=== PATIENT | female | born 1940 | race Caucasian/White ===

== ENCOUNTER → 2016-06-28 | Outpatient (CLI) | payer MEDICARE, OTHER ==
--- NOTE | 2016-06-28 12:36 | FL ---
MODIFIED SWALLOW / DEGLUTITION STUDY DATE OF EXAM: 06/28/2016 12:28 PM CLINICAL HISTORY: 75-year-old female with trouble swallowing certain solid consistencies. TECHNIQUE: Deglutition study is performed utilizing thin liquid barium, , a soft preparation with cr vanessa soaked in applesauce and barium, and barium thick applesauce Total fluoroscopy time: 1 minute 25 seconds. COMPARISON: None. FINDINGS: The oral and pharyngeal phases show delay in swallow. Patient also swallowed the soft consistency wit hout chewing. No penetration or aspiration was identified. There is some vallecular residual with the soft consistency which cleared after drinking thin consistency. Patient noted to be edentulous. IMPRESSION: Some delay in swallow. No penetration or aspiration with the tested consistencies. Please refer to sp eech therapist notes for further details if necessary.
== END | disposition home or self-care (01) ==
LOC: RADFLMAIN 11:31
PROVIDERS: ATTEND Family Medicine
DX: R13.10 Dysphagia, unspecified (principal)
CPT/HCPCS: 74230

== ENCOUNTER 2016-10-21 15:51 | Inpatient (IN) | payer MEDICARE, OTHER ==
[2016-10-21] MEDS ORDERED: IPRATROPIUM-ALBUTEROL 3 ML NEB INHALATION STA (16:17)
--- NOTE | 2016-10-21 17:05 | ED ---
General Adult HPI - General Source: patient, EMS, RN notes reviewed Mode of arrival: EMS Limitations: no limitations <Harley Kuhn - Last Filed: 10/21/16 17:03> <Jose Antonio Morales - Last Filed: 10/21/16 18:18> - General Chief complaint: Shortness of Breath Stated complaint: Fall - History of Present Illness Initial comments: 75-year-old female presents emergency Department via EMS for a fall, shortness of breath. Patient initial illness: Was for lift assist. Patient fell out of her scooter. This was essentially nontraumatic fall. Patient had no injuries from it. Patient was found to be short of breath and family is requesting medical attention. Patient does not want to be in [facility] she states. Patient does admit to being short breath and having some chest discomfort. Patient states she does have a history of asthma. Denies any nausea vomiting diarrhea constipation. Denies any head injury no headache no dizziness no blurred vision. She denies any focal weakness. (Harley Kuhn) - Related Data Home Medications Medication Instructions Recorded Confirmed Fenofibrate Nanocrystallized 145 mg PO DAILY 11/03/15 10/21/16 [Fenofibrate] Gabapentin [Neurontin] 300 mg PO BID 11/03/15 10/21/16 Loratadine [Claritin] 10 mg PO DAILY 11/03/15 10/21/16 Metoprolol Tartrate [Lopressor] 25 mg PO DAILY 11/03/15 10/21/16 Omeprazole 20 mg PO QAM 11/03/15 10/21/16 Oxybutynin Chloride [Oxybutynin 15 mg PO BID 11/03/15 10/21/16 Chloride ER] Simvastatin [Zocor] 10 mg PO DAILY 11/03/15 10/21/16 Venlafaxine HCl [Effexor] 37.5 mg PO HS 11/03/15 10/21/16 Venlafaxine HCl [Effexor] 75 mg PO QAM 11/03/15 10/21/16 amLODIPine [Norvasc] 5 mg PO DAILY 11/03/15 10/21/16 buPROPion SR [Wellbutrin SR] 150 mg PO DAILY 11/03/15 10/21/16 metFORMIN HCL [Glucophage] 850 mg PO QAM 11/03/15 10/21/16 Insulin Aspart [NovoLOG Flexpen] 7 units SQ TID-W/MEALS 10/21/16 10/21/16 Insulin Aspart [NovoLOG Flexpen] See Protocol SQ TID 10/21/16 10/21/16 Insulin Glargine,Hum.rec.anlog 30 unit SQ QAM 10/21/16 10/21/16 [Lantus Solostar] Isosorbide Mononitrate ER [Imdur] 30 mg PO DAILY 10/21/16 10/21/16 Allergies Allergy/AdvReac Type Severity Reaction Status Date / Time morphine AdvReac Unknown Verified 12/18/15 11:57 NSAIDS (Non-Steroidal AdvReac Unknown Verified 12/18/15 11:57 Anti-Inflamma Penicillins AdvReac Abdominal Verified 12/18/15 11:57 Pain Quinazolinones AdvReac Unknown Verified 12/18/15 11:57 Quinolones AdvReac Unknown Verified 12/18/15 11:57 salicylates [salicylate] AdvReac Unknown Verified 12/18/15 11:57 Review of Systems ROS Other: All systems not noted in ROS Statement are negative. <Harley Kuhn - Last Filed: 10/21/16 17:03> ROS Other: All systems not noted in ROS Statement are negative. <Jose Antonio Morales - Last Filed: 10/21/16 18:18> ROS Statement: Those systems with pertinent positive or pertinent negative responses have been documented in the HPI. Past Medical History Past Medical History: Coronary Artery Disease (CAD), Dementia, Diabetes Mellitus , GERD/Reflux, Hyperlipidemia, Hypertension History of Any Multi-Drug Resistant Organisms: None Reported, Unobtainable Past Surgical History: Unable to Obtain Past Psychological History: No Psychological Hx Reported, Unable to Obtain Smoking Status: Never smoker Past Alcohol Use History: None Reported Past Drug Use History: None Reported - Past Family History Sister(s) Family Medical History: Cancer, Diabetes Mellitus Father Family Medical History: No Reported History, Unable to Obtain Additional Family Medical History / Comment(s): pt unsure Mother Family Medical History: No Reported History, Unable to Obtain Additional Family Medical History / Comment(s): pt unsure <Harley Kuhn - Last Filed: 10/21/16 17:03> General Exam Limitations: no limitations General appearance: alert, in no apparent distress, obese Head exam: Present: atraumatic, normocephalic, normal inspection Eye exam: Present: normal appearance, PERRL, EOMI. Absent: scleral icterus, conjunctival injection, periorbital swelling ENT exam: Present: normal exam, normal oropharynx, mucous membranes moist, TM's normal bilaterally Neck exam: Present: normal inspection, full ROM. Absent: tenderness, meningismus, lymphadenopathy Respiratory exam: Present: wheezes, decreased breath sounds. Absent: normal lung sounds bilaterally, respiratory distress, rales, rhonchi, stridor Cardiovascular Exam: Present: regular rate, normal rhythm, normal heart sounds. Absent: systolic murmur, diastolic murmur, rubs, gallop, clicks GI/Abdominal exam: Present: soft, normal bowel sounds. Absent: distended, tenderness, guarding, rebound, rigid Neurological exam: Present: alert, oriented X3, CN II-XII intact, reflexes normal. Absent: motor sensory deficit Skin exam: Present: warm, dry, intact, normal color. Absent: rash <Harley Kuhn - Last Filed: 10/21/16 17:03> Medical Decision Making <Harley Kuhn - Last Filed: 10/21/16 17:03> - Lab Data Result diagrams: 10/21/16 16:40 10/21/16 16:40 <Jose Antonio Morales - Last Filed: 10/21/16 18:18> - Medical Decision Making chest x-ray shows pulmonary edema. EKG shows a normal sinus rhythm at 84 bpm SC interval is on a 56 dresses 84 QT interval 350 QTC is 413. Patient's EKG shows no ST segment elevation or depression or T wave abnormalities are noted. Patient has pulmonary edema. I started the patient on Lasix and Nitropaste. Spoke withDr. Robertson admitted the patient I consult to cardiology. I continued Nitropaste and Lasix on the floor. Patient also had elevated potassiums I gave the patient 1 dose of Kayexalate hoping that the Lasix and also reduce the potassium and he can be rechecked tomorrow. (Jose Antonio Morales) - Lab Data Lab Results 10/21/16 10/21/16 10/21/16 Range/Units 16:40 16:40 16:40 WBC 11.6 H (3.8-10.6) k/uL RBC 5.08 (3.80-5.40) m/uL Hgb 10.7 L (11.4-16.0) gm/dL Hct 36.9 (34.0-46.0) % MCV 72.7 L (80.0-100.0) fL MCH 21.0 L (25.0-35.0) pg MCHC 29.0 L (31.0-37.0) g/dL RDW 18.3 H (11.5-15.5) % Plt Count 417 (150-450) k/uL Neutrophils % (Manual) 78.5 % Band Neutrophils % 3.0 % Lymphocytes % (Manual) 10.5 % Monocytes % (Manual) 5.5 % Eosinophils % (Manual) 2.5 % Neutrophils # (Manual) 9.5 H (1.3-7.7) k/uL Lymphocytes # (Manual) 1.2 (1.0-4.8) k/uL Monocytes # (Manual) 0.6 (0-1.0) k/uL Eosinophils # (Manual) 0.3 (0-0.7) k/uL Nucleated RBCs 2 H (0-0) /100 WBC Manual Slide Review Performed Polychromasia Present Hypochromasia Marked Poikilocytosis Slight Anisocytosis Slight Microcytosis Moderate Stomatocytes Present PT (9.0-12.0) sec INR (<1.1) APTT (22.0-30.0) sec D-Dimer (<0.60) mg/L FEU Sodium 138 (137-145) mmol/L Potassium 5.9 H (3.5-5.1) mmol/L Chloride 98 (98-107) mmol/L Carbon Dioxide 33 H (22-30) mmol/L Anion Gap 7 mmol/L BUN 40 H (7-17) mg/dL Creatinine 1.19 H (0.52-1.04) mg/dL Est GFR (MDRD) Af Amer 54 (>60 ml/min/1.73 sqM) Est GFR (MDRD) Non-Af 44 (>60 ml/min/1.73 sqM) Glucose 188 H (74-99) mg/dL Calcium 8.6 (8.4-10.2) mg/dL Magnesium 1.7 (1.6-2.3) mg/dL Total Bilirubin 0.4 (0.2-1.3) mg/dL AST 25 (14-36) U/L ALT 27 (9-52) U/L Alkaline Phosphatase 85 (38-126) U/L Total Creatine Kinase 35 (30-135) U/L CK-MB (CK-2) 0.9 (0.0-2.4) ng/mL CK-MB (CK-2) Rel Index 2.6 Troponin I 0.014 (0.000-0.034) ng/mL NT-Pro-B Natriuret Pep pg/mL Total Protein 6.4 (6.3-8.2) g/dL Albumin 3.4 L (3.5-5.0) g/dL 10/21/16 10/21/16 Range/Units 16:40 16:40 WBC (3.8-10.6) k/uL RBC (3.80-5.40) m/uL Hgb (11.4-16.0) gm/dL Hct (34.0-46.0) % MCV (80.0-100.0) fL MCH (25.0-35.0) pg MCHC (31.0-37.0) g/dL RDW (11.5-15.5) % Plt Count (150-450) k/uL Neutrophils % (Manual) % Band Neutrophils % % Lymphocytes % (Manual) % Monocytes % (Manual) % Eosinophils % (Manual) % Neutrophils # (Manual) (1.3-7.7) k/uL Lymphocytes # (Manual) (1.0-4.8) k/uL Monocytes # (Manual) (0-1.0) k/uL Eosinophils # (Manual) (0-0.7) k/uL Nucleated RBCs (0-0) /100 WBC Manual Slide Review Polychromasia Hypochromasia Poikilocytosis Anisocytosis Microcytosis Stomatocytes PT 11.0 (9.0-12.0) sec INR 1.1 (<1.1) APTT 22.6 (22.0-30.0) sec D-Dimer 0.39 (<0.60) mg/L FEU Sodium (137-145) mmol/L Potassium (3.5-5.1) mmol/L Chloride (98-107) mmol/L Carbon Dioxide (22-30) mmol/L Anion Gap mmol/L BUN (7-17) mg/dL Creatinine (0.52-1.04) mg/dL Est GFR (MDRD) Af Amer (>60 ml/min/1.73 sqM) Est GFR (MDRD) Non-Af (>60 ml/min/1.73 sqM) Glucose (74-99) mg/dL Calcium (8.4-10.2) mg/dL Magnesium (1.6-2.3) mg/dL Total Bilirubin (0.2-1.3) mg/dL AST (14-36) U/L ALT (9-52) U/L Alkaline Phosphatase (38-126) U/L Total Creatine Kinase (30-135) U/L CK-MB (CK-2) (0.0-2.4) ng/mL CK-MB (CK-2) Rel Index Troponin I (0.000-0.034) ng/mL NT-Pro-B Natriuret Pep 3200 pg/mL Total Protein (6.3-8.2) g/dL Albumin (3.5-5.0) g/dL Disposition <Harley Kuhn - Last Filed: 10/21/16 17:03> <Jose Antonio Morales - Last Filed: 10/21/16 18:18> Clinical Impression: Acute pulmonary edema Referrals: None,Stated [Primary Care Provider] - 1-2 days
[2016-10-21 17:13] LABS: Anisocytosis Slight; CH 20.9; CHCM 28.9; Calcium 8.6 mg/dL (8.4-10.2); HCT 36.9 % (34.0-46.0); HDW 3.55; HGB 10.7 gm/dL (11.4-16.0); Hypochromasia Marked; MCV 72.7 fL (80.0-100.0); Magnesium 1.7 mg/dL (1.6-2.3); Mean Platelet Volume 7.1; Microcytosis Moderate; Poikilocytosis Slight; Potassium 5.9 mmol/L (3.5-5.1); RBC 5.08 m/uL (3.80-5.40); RDW 18.3 % (11.5-15.5); Total Bilirubin 0.4 mg/dL (0.2-1.3); Total Protein 6.4 g/dL (6.3-8.2)
[2016-10-21 17:18] LABS: INR 1.1 (<1.1); Partial Thromboplastin Time 22.6 sec (22.0-30.0)
[2016-10-21 17:23] LABS: Add Differential Manual Differential
[2016-10-21 17:26] LABS: Nucleated Red Blood Cells 2 /100 WBC (0-0); Total Cells Counted 200
[2016-10-21 17:27] LABS: Manual Review Performed; Polychromasia Present; WBC 11.6 k/uL (3.8-10.6)
[2016-10-21 17:28] LABS: Stomatocytes Present
--- NOTE | 2016-10-21 17:29 | XR ---
EXAMINATION TYPE: XR chest 2V DATE OF EXAM: 10/21/2016 COMPARISON: NONE INDICATION: Difficulty breathing TECHNIQUE: Frontal and lateral views of the chest are obtained. FINDINGS: The heart size is enlarged. The pulmonary vasculature is borderline prominent.. There is opacification to the left mid and lower lung field. Some minimal infiltrates in the right pe rihilar region. Correlate for volume overload and pneumonia.. IMPRESSION: 1. Correlate for pneumonia left lower lobe. 2. Volume overload could be considered
[2016-10-21 17:31] LABS: Creatine Kinase MB 0.9 ng/mL (0.0-2.4); Troponin I 0.014 ng/mL (0.000-0.034)
[2016-10-21] MEDS ORDERED: NITROGLYCERIN OINT 1 INCH/GM PACKET TOPICAL STA (18:09)
[2016-10-21] MEDS ORDERED: FUROSEMIDE 10 MG/ML 4 ML VIAL IV STA (18:09)
[2016-10-21] MEDS ORDERED: SODIUM POLYSTYRENE SULFONATE 15 GM/60 ML BOTTLE PO STA (18:11)
[2016-10-22] MEDS: FUROSEMIDE 10 MG/ML 4 ML VIAL IV SCH ×2 (00:49→08:44)
[2016-10-22 01:23] LABS: Appearance,Urine Cloudy (Clear); Bacteria,Urine Many /hpf; Bilirubin,Urine Negative (Negative); Glucose,Urine (UA) 1+ (Negative); Ketones,Urine Negative (Negative); Leukocyte Esterase,Urine Large (Negative); Mucus,Urine Rare /hpf; Nitrite,Urine Negative (Negative); Particle Count 72945; Protein,Urine Trace (Negative); RBC,Urine 6 /hpf (0-5); Specific Gravity,Urine 1.008 (1.001-1.035); UA Billing (MACRO vs. MICRO) MICRO; Urobilinogen,Urine <2.0 mg/dL (<2.0); WBC,Urine >182 /hpf (0-5)
[2016-10-22 06:24] LABS: Glucose,Whole Blood 124 mg/dL (75-99)
[2016-10-22] MEDS: INSULIN LISPRO (humaLOG) 300 UNIT/3 ML VIAL SQ SCH ×5 (06:24→21:33)
[2016-10-22 07:13] LABS: Anisocytosis Slight; CH 20.7; CHCM 28.1; HCT 38.3 % (34.0-46.0); HDW 3.37; HGB 10.7 gm/dL (11.4-16.0); Hypochromasia Marked; MCH 20.8 pg (25.0-35.0); Mean Platelet Volume 6.7; Microcytosis Moderate; RBC 5.17 m/uL (3.80-5.40); RDW 17.9 % (11.5-15.5); WBC (Perox) 11.64
[2016-10-22 07:23] LABS: Calcium 8.5 mg/dL (8.4-10.2); Potassium 4.7 mmol/L (3.5-5.1)
--- NOTE | 2016-10-22 10:17 | CONS ---
DATE OF CONSULTATION: CHIEF COMPLAINT: Shortness of breath, cough. This is a 75-year-old lady who had a fall at home and was short of breath. Patient is morbidly obese, has sleep apnea, dyslipidemia, hypertension, and insulin-requiring diabetes. She was found to have complex and multiple problems on admission including acute onset congestive heart failure, probably diastolic, renal insufficiency, primarily prerenal and anemia with a hemoglobin of 10.7. Past medical history is significant for hypertension, diabetes, dyslipidemia, morbid obesity. Medications at home include Glucophage, Wellbutrin, Norvasc, Effexor, Zocor, Lopressor, Claritin, Imdur, insulin, Neurontin, Fenofibrate. Multiple allergies including NSAIDS, PENICILLIN, QUINOLONES, SALICYLATES and MORPHINE. Family history is negative for premature coronary artery disease. SOCIAL HISTORY: Denies current smoking, EtOH abuse. REVIEW OF SYSTEMS: HEENT is unremarkable. CARDIAC: As described above. RESPIRATORY: Significant shortness of breath. GI: Negative. GENITOURINARY: Negative. ALLERGY/IMMUNOLOGY: Negative. SKIN: Negative. MUSCULOSKELETAL: Significant for fall. PSYCHOSOCIAL: Significant for history of dementia. ONCOLOGICAL: Negative. HEMATOLOGICAL: Significant for anemia. The rest of the system review is not relevant. On exam, heart rate is 79 beats per minute, blood pressure is 150/49, O2 sat is 100% on 4 L. There is no jugular venous distention. Chest exam reveals diminished air entry with occasional rhonchi. Heart exam reveals first and second heart sounds. Systolic murmur at the apex. Abdomen is soft. Exam of extremities did not reveal significant edema. Labs show a hemoglobin of 10.7, platelet count is 420, BUN is 42, creatinine is 1.4. BNP is elevated at 3200. ASSESSMENT: 1. Acute onset congestive heart failure, probably diastolic. 2. Hypertension. 3. Dyslipidemia. 4. History of coronary artery disease. PLAN: I will treat the patient with IV Lasix, beta blockers, and holding on EDY inhibitors because of the hyperkalemia and renal insufficiency. Continue the nitrates. Review the echo. Further recommendations based on her response.
[2016-10-22 10:20] LABS: Add Differential Manual Differential
[2016-10-22 10:22] LABS: Band Neutrophils % 2.5 %; Myelocytes % 0.5 %; Nucleated Red Blood Cells 3 /100 WBC (0-0); Total Cells Counted 200
[2016-10-22 10:23] LABS: WBC 11.1 k/uL (3.8-10.6)
[2016-10-22 10:24] LABS: Polychromasia Present
[2016-10-22 11:47] LABS: Glucose,Whole Blood 280 mg/dL (75-99)
[2016-10-22 12:36] LABS: Hemoglobin A1C 11.9 % (4.2-6.1)
[2016-10-22] MEDS: METOPROLOL TARTRATE 25 MG TAB PO SCH (12:57)
[2016-10-22] MEDS: amLODIPine 5 MG TAB PO SCH (12:57)
[2016-10-22] MEDS: ISOSORBIDE MONONITRATE ER 30 MG TAB.ER.24H PO SCH (12:58)
[2016-10-22 15:50] LABS: ABG PH 7.34 (7.35-7.45)
[2016-10-22 15:51] LABS: ABG Base Excess 10.4 mmol/L; ABG HCO3 36 mmol/L (21-25); ABG PCO2 70 mmHg (35-45); ABG PO2 74 mmHg (83-108); ABG TCO2 39 mmol/L (19-24)
[2016-10-22 17:32] LABS: Glucose,Whole Blood 91 mg/dL (75-99)
[2016-10-22] MEDS: predniSONE 20 MG TAB PO SCH (17:34)
[2016-10-22] MEDS: AZITHROMYCIN 500 MG TAB PO SCH (17:35)
[2016-10-22] MEDS: BUDESONIDE 0.5 MG/2 ML NEBU INHALATION SCH (18:59)
--- NOTE | 2016-10-22 19:09 | HP ---
Patient is a 75-year-old female who came into emergency department after a fall and patient was apparently short of breath. She states that shortness of breath has been going on for about 2 weeks, she says. Patient was in the hospital about a year ago. At that time, patient did not appear to have any major medical problems. Patient is morbidly, an extremely poor historian and I unable to get any history of congestive heart failure in the past. There is no echocardiogram available. I am not able to get a clear history of orthopnea, PND. Patient did have leukocytosis, but patient is afebrile and patient is complaining of cough with yellowish to greenish sputum production. Patient is morbidly obese, has a diagnosis of COPD in the past, has secondhand smoke exposure and chest x-ray was done which because of the obesity and soft tissue interference, it is not clear whether patient has CHF or not. I reviewed the images and there is a consideration of left lower lobe pneumonia as well. Patient was given IV Lasix, but her kidney function has worsened. Obtaining an echocardiogram at this time . The patient was complaining of some chest discomfort yesterday, but Cardiology evaluated the patient and troponins were not elevated. Patient's creatinine baseline is normal, but now has gone up to 1.41, because of which I am cutting down on the Lasix to 40 daily from 40 t.i.d., although I cannot completely rule out heart failure. Patient on exam is wheezing. I am unable to assess the JVD or S3 because of her body contour and morbid obesity and patient's wheezing can be from restrictive lung disease. Not sure whether patient has sleep apnea or not. I am unable to get such a history from the patient. Patient's ABG showed pH 7.34, PCO2 of 70, pO2 of 74 and bicarbonate of around 34. Patient's baseline pCO2 will be around 60 to 65 from Winter's formula. Patient denied any nausea, vomiting, diarrhea. Patient was started on empiric antibiotics and patient is ( ). The patient was on BiPAP yesterday, now 8L high-flow nasal cannula oxygen and Pulmonology will be consulted. Cardiology already evaluated the patient. REVIEW OF SYSTEMS: CONSTITUTIONAL: No fever, no malaise, no fatigue. HEENT: No recent visual problems or hearing problems. Denied any sore throat. CARDIOVASCULAR: As described in HPI. PULMONARY: As described in HPI. GASTROINTESTINAL: No diarrhea, no nausea, no vomiting, no abdominal pain. Normoactive bowel sounds. NEUROLOGICAL: No headaches, no weakness, no numbness. HEMATOLOGICAL: Denies any bleeding or petechiae. GENITOURINARY: Denies any burning micturition, frequency, or urgency. MUSCULOSKELETAL/RHEUMATOLOGICAL: Denies any joint pain, swelling, or any muscle pain. ENDOCRINE: Denies any polyuria or polydipsia. The rest of the 14 point review of systems is negative. Home medications include: 1. Fenofibrate. 2. Gabapentin. 3. Loratadine. 4. Metoprolol. 5. Omeprazole. 6. Oxybutynin. 7. Simvastatin. 8. ( ). 9. Amlodipine. 10. Bupropion. 11. Metformin. 12. Insulin Aspart 30 units in the morning and t.i.d. a.c. 7 units. 13. Isosorbide mononitrate. ALLERGIES: ALLSRGIC TO MORPHINE AND NSAIDS, PENICILLIN, QUINOLONES AND SALICYLATES. PAST MEDICAL HISTORY: Significant for coronary artery disease, diabetes mellitus, gastroesophageal reflux disease, hyperlipidemia, hypertension. Apparently patient gathers diagnosis of dementia, too. SOCIAL HISTORY: Denied any smoking. Secondhand smoke exposure as mentioned above. Denied any alcohol abuse or drug abuse. FAMILY HISTORY: Sister had cancer and diabetes mellitus. Father's history is unavailable at this point of time. Mother's history is unknown as well. PHYSICAL EXAMINATION: VITAL SIGNS: Temperature 96.4, pulse of 93, respiratory rate of 21, and blood pressure is 149/65, saturating at 87% on 8L of O2 by nasal cannula. GENERAL: The patient is not in any acute distress. Well developed, well nourished. HEENT: Pupils are round and equally reacting to light. EOMI. No scleral icterus. No conjunctival pallor. Normocephalic, atraumatic. No pharyngeal erythema. No thyromegaly. CARDIOVASCULAR: Unable to appreciate any JVD or S3. Patient has S1 and S2 present. I did not appreciate any clear-cut murmurs, rubs or gallops at this time. Patient does not have any significant pedal edema at this point of time. PULMONARY: Decreased air entry to bilateral lung infiltrates. Wheezing was appreciated. ABDOMEN: Soft, nontender, nondistended, normoactive bowel sounds. No palpable organomegaly. MUSCULOSKELETAL: No joint swelling or deformity. EXTREMITIES: No cyanosis, clubbing, or pedal edema. NEUROLOGICAL: Gross neurological examination did not reveal any focal deficits. SKIN: No rashes. LABORATORY DATA: CBC, CMP are abnormal for elevated WBC count of 11,100. ABGs as mentioned above. Bicarbonate of 34, BUN of 42, creatinine 1.42. Patient's ( ) 1.1 when she came in. Patient's UA showed greater than 182 WBCs, many WBC clumps, many bacteria. Patient denied any symptoms of UTI. Chest x-ray as mentioned above. ASSESSMENT AND PLAN: 1. Acute hypoxic as well as hypercapnic respiratory failure. Patient may have probably multifactorial etiologies, although unclear. There is a contribution of morbid obesity, restrictive lung disease with a possibility of pneumonia, community-acquired, which cannot be ruled out, for which patient will be started on Rocephin and azithromycin. Patient may have chronic obstructive pulmonary disease exacerbation as well, because of which starting on systemic steroids and inhalational treatments, although congestive heart failure and diastolic dysfunction cannot be ruled out at this time. I will continue with Lasix. Because of the worsening kidney function, I will cut down dose. 2. Acute renal failure, prerenal azotemia secondary to excessive diuretic therapy, which will cut down. 3. Diabetes mellitus. Blood sugars are expected to go up. Will increase the pre-meal Lantus dose to 45 units and pre-meal insulin, will continue with that and will continue the present home dosing along with sliding scale for systemic steroids. 4. Peripheral neuropathy. 5. Morbid obesity with possibility of sleep apnea. 6. Hyperlipidemia. 7. Hypertension. 8. Depression. 9. For above-mentioned chronic medical problems, will go ahead and continue her home medications. 10. Leukocytosis with possibility of pneumonia as mentioned above. Will obtain a sputum culture as well. 11. Major limiting factors are obesity and poor historian.
[2016-10-22 20:50] LABS: Glucose,Whole Blood 156 mg/dL (75-99)
[2016-10-22] MEDS ORDERED: GABAPENTIN 300 MG CAP PO SCH (21:00)
[2016-10-22] MEDS ORDERED: FUROSEMIDE 10 MG/ML 4 ML VIAL IV SCH (21:00)
[2016-10-22] MEDS ORDERED: INSULIN GLARGINE 100 UNIT/ML 10 ML VIAL SQ SCH ×2 (21:00)
[2016-10-22] MEDS: OXYBUTYNIN 15 MG TAB.ER.24 PO SCH (21:32)
[2016-10-22] MEDS: VENLAFAXINE HCL 37.5 MG TAB PO SCH (21:32)
[2016-10-23 06:08] LABS: Glucose,Whole Blood 243 mg/dL (75-99)
[2016-10-23 06:24] LABS: Calcium 8.6 mg/dL (8.4-10.2); Potassium 5.2 mmol/L (3.5-5.1)
[2016-10-23] MEDS: PANTOPRAZOLE 40 MG TABLET PO SCH (07:01)
[2016-10-23] MEDS: INSULIN LISPRO (humaLOG) 300 UNIT/3 ML VIAL SQ SCH ×7 (07:01→21:32)
[2016-10-23] MEDS: AZITHROMYCIN 500 MG TAB PO SCH (08:45)
[2016-10-23] MEDS: ISOSORBIDE MONONITRATE ER 30 MG TAB.ER.24H PO SCH (08:46)
[2016-10-23] MEDS: FENOFIBRATE 160 MG TAB PO SCH (08:46)
[2016-10-23] MEDS: ATORVASTATIN 10 MG TAB PO SCH (08:46)
[2016-10-23] MEDS: LORATADINE 10 MG TAB PO SCH (08:46)
[2016-10-23] MEDS: buPROPion SR 150 MG TABLET.ER PO SCH (08:46)
[2016-10-23] MEDS: amLODIPine 5 MG TAB PO SCH (08:46)
[2016-10-23] MEDS: METOPROLOL TARTRATE 25 MG TAB PO SCH (08:47)
[2016-10-23] MEDS: OXYBUTYNIN 15 MG TAB.ER.24 PO SCH ×2 (08:47→21:32)
[2016-10-23] MEDS: predniSONE 20 MG TAB PO SCH (08:47)
[2016-10-23] MEDS: VENLAFAXINE HCL 75 MG TAB PO SCH (08:47)
[2016-10-23] MEDS ORDERED: FUROSEMIDE 10 MG/ML 4 ML VIAL IV SCH (09:00)
[2016-10-23] MEDS: BUDESONIDE 0.5 MG/2 ML NEBU INHALATION SCH (09:48)
--- NOTE | 2016-10-23 11:31 | PN ---
Grecia is a morbidly obese lady with multiple medical problems including hypertension, diabetes, dyslipidemia, who presented to hospital with shortness of breath due to a combination of problems including COPD exacerbation and acute exacerbation of chronic diastolic heart failure. She is currently being treated with antibiotics with some improvement in her symptoms. She is also on Cytotec. An echocardiogram on her shows normal LV systolic function. Labs show that she developed prerenal azotemia with a BUN of 43 and creatinine of 1.3. Blood gases showed a pH of 7.3, pCO2 of 70, pO2 of 74, O2 sat is 93. On exam, comfortable at rest. Vital signs are stable. Chest exam reveals diminished air entry at the bases. Heart exam reveals first and second heart sounds. Systolic murmur at the left lower sternal border. Abdomen soft. Exam of the extremities reveals 1+ edema. Peripheral pulses are felt. The patient is currently on Norvasc 5 daily, Zithromax, Pulmicort, ( ), Lasix 40 mg IV, insulin, Imdur, Lopressor which she is going to continue. ASSESSMENT: 1. Acute onset diastolic heart failure. 2. Chronic obstructive pulmonary disease exacerbation. 3. Dyslipidemia. 4. Renal insufficiency. 5. Respiratory failure. PLAN: Patient will continue her current medications. We can cut back on the diuretics if we need to.
[2016-10-23 11:55] LABS: Glucose,Whole Blood 358 mg/dL (75-99)
[2016-10-23] MEDS ORDERED: INSULIN GLARGINE 100 UNIT/ML 10 ML VIAL SQ SCH (13:54)
--- NOTE | 2016-10-23 14:56 | CONS ---
DATE OF CONSULTATION: 75-year-old female who presented to the emergency department with a number of days of shortness of breath. The patient was apparently on her scooter and fell off. She did not injure herself. Denies any chest pain palpitation, cough, wheezing, fever, chills, nausea, vomiting, or diarrhea. She was seen in the emergency room and diagnosed with heart failure. Her chest x-ray consistent with that. In addition, yesterday the patient was bed bound and could barely move without being profoundly short of breath. Today she is sitting at the bedside and is able to walk on her own to the bathroom. When I walked into the room she was sitting at the bedside playing over the phone. Still has no complaints today. Current medications include: 1. Fenofibrate. 2. Gabapentin. 3. Loratadine. 4. Metoprolol. 5. Omeprazole. 6. Oxybutynin. 7. Simvastatin. 8. Effexor. 9. Norvasc. 10. Wellbutrin. 11. Glucophage. 12. NovoLog insulin. 13. Imdur. ALLERGIES INCLUDE MORPHINE, NSAIDS, PENICILLIN, FLUOROQUINOLONES, SALICYLATES. Medical history is positive for CAD, dementia, diabetes, GERD, hyperlipidemia, hypertension. Surgical history includes remote procedures in the past. Nothing recent. SOCIAL HISTORY: Negative for tobacco use. Denies any alcohol or illicit drug use. Family history is positive for cancer and diabetes. REVIEW OF SYSTEMS: CONSTITUTIONAL: Negative. NEUROLOGICAL: Negative. HEENT: Negative. CARDIOVASCULAR: Negative. PULMONARY: Shortness of breath, much improved. GI/: Negative. Rheumatological/immunologic: Negative. ENDOCRINOLOGIC: Negative. Current vital signs show temperature 96.7, heart rate 88, respiratory rate 20, blood pressure 110/62, mean 78. 6 liters saturation 93%. Appears in no acute distress. HEENT examination is grossly unremarkable. Mucous membranes are moist. No oral lesions. Neck is supple. Full range of motion. No adenopathy or thyromegaly. Neck veins are flat. Cardiovascular examination reveals regular rhythm and rate. Heart sounds are distant. S1, S2 normal. No distinct murmur noted. Lungs reveal mostly clear breath sounds. A few scattered rhonchi. Some mild crackles. No wheezes. ABDOMEN: Soft. Bowel sounds are heard. EXTREMITIES: Intact. Mild edema. Skin without rash. NEUROLOGICAL: Examination is nonfocal. Chest x-ray is consistent with fluid overload. He is a bit more dense in the left lower lobe. Labs are reviewed. White count 11.1, hemoglobin 10.7, hematocrit 38.3, platelet count normal. PT, INR, PTT normal. D-dimer normal. Blood gases show pO2 of 74, pCO2 of 70, pH 7.34. It appears that she is a chronic CO2 retainer may be from sleep apnea, and/or Pickwickian syndrome. Sodium 140, potassium 5.2, chloride 96, CO2 of 35, BUN and creatinine 43 and 1.30. N-terminal proBNP was elevated at 3200 and albumin 3.4, troponin 0.014. Urine is cloudy. There is trace protein 1+ glucose, small blood. Large leukocyte esterase, 6 RBCs more than 182 WBCs and many bacteria. The rest of her labs are reviewed. ASSESSMENT: 1. Acute pulmonary edema, improved. 2. Urinary tract infections and cystitis. 3. Obesity. 4. Hyperlipidemia. 5. Neuropathy. 6. Hypertension. 7. Hyperlipidemia. 8. Diabetes. 9. History of coronary artery disease. 10. History of dementia. 11. History of gastroesophageal reflux disease. PLAN: The patient is doing well. We will continue to follow. Medications are reviewed. It seems like in the last 24 hours she has turned around very, very nicely. The patient's medications are reviewed. Additional recommendations and suggestions are forthcoming. Prognosis is guarded. I do not believe she needs prednisone. That will be discontinued. She also does not need both antibiotics. We will continue her on the oral Zithromax and will DC the Rocephin for now. [facility] for [facility]. Prognosis is guarded.
[2016-10-23 17:16] LABS: Glucose,Whole Blood 215 mg/dL (75-99)
--- NOTE | 2016-10-23 20:00 | PN ---
Patient looks much better today. Patient's respiratory status is improving. REVIEW OF SYSTEMS: CARDIOVASCULAR: No chest pain, no orthopnea, no PND, no palpitations. PULMONARY: Denied any shortness of breath. No cough or hemoptysis. GASTROINTESTINAL: No diarrhea, nausea or vomiting. No abdominal pain. Normoactive bowel sounds. NEUROLOGIC: No headaches, no weakness, no numbness. Medications were reviewed. Medication changes: The patient Lasix will be switched to oral. Kidney function improved. LABORATORY DATA: Reviewed. PHYSICAL EXAMINATION: VITAL SIGNS: Temperature 96.7, pulse of 88, respiratory rate of 137/77. Saturating at 93% on 5 liters at this point of time. GENERAL: Morbidly obese, alert and oriented x3. HEENT: Pupils are round and equally reacting to light. EOMI. No scleral icterus. No conjunctival pallor. Normocephalic, atraumatic. No pharyngeal erythema. No thyromegaly. CARDIOVASCULAR: S1 and S2 present. Unable to appreciate any jugular venous distention or S3, no pedal edema. Lung examination: Decreased air entry into bilateral lung bradford. Wheezing significantly improved today. ABDOMEN: Soft, nontender, nondistended, normoactive bowel sounds. No palpable organomegaly. MUSCULOSKELETAL: No joint swelling or deformity. EXTREMITIES: No cyanosis, clubbing, or pedal edema. NEUROLOGICAL: Gross neurological examination did not reveal any focal deficits. SKIN: No rashes. LABORATORY DATA: Basic metabolic profile is abnormal for elevated BUN of 43, creatinine 1.3. Potassium is 5.2 due to acute renal failure, elevation due to acute renal failure. ASSESSMENT AND PLAN: 1. Acute hypoxic as well as hypercapnic respiratory failure. Most probably etiology being pneumonia community-acquired right lower lobe along with chronic obstructive pulmonary disease exacerbation with contribution from restrictive lung disease. Possibility of diastolic dysfunction cannot be ruled out. 2. Acute renal failure, prerenal azotemia, excessive diuretic therapy. Diuretic therapy is being switched to oral diuretics. 3. Type 2 diabetes mellitus. Blood sugars are uncontrolled due to systemic steroids. We will continue with present insulin regimen. We will uptitrate as needed. 4. Morbid obesity with a possibility of sleep apnea and restrictive lung disease. We will need to follow outpatient sleep study. 5. Diabetic peripheral neuropathy. 6. Hyperlipidemia. 7. Hypertension. 8. Depression. Repeat CBC and electrolytes tomorrow.
[2016-10-23 21:09] LABS: Glucose,Whole Blood 249 mg/dL (75-99)
[2016-10-23] MEDS: VENLAFAXINE HCL 37.5 MG TAB PO SCH (21:32)
[2016-10-24 06:13] LABS: Glucose,Whole Blood 79 mg/dL (75-99)
[2016-10-24] MEDS: INSULIN LISPRO (humaLOG) 300 UNIT/3 ML VIAL SQ SCH ×7 (06:42→21:17)
[2016-10-24 06:45] LABS: Blood Urea Nitrogen 43 mg/dL (7-17); Calcium 8.6 mg/dL (8.4-10.2); Chloride 95 mmol/L (98-107); Glucose 79 mg/dL (74-99); Non-African American GFR(MDRD) 54 (>60 ml/min/1.73 sqM); Potassium 4.4 mmol/L (3.5-5.1); Sodium 142 mmol/L (137-145)
[2016-10-24 06:50] LABS: Anion Gap 7 mmol/L
[2016-10-24] MEDS: PANTOPRAZOLE 40 MG TABLET PO SCH (06:55)
[2016-10-24 07:13] LABS: Carbon Dioxide 40 mmol/L (22-30)
[2016-10-24] MEDS: amLODIPine 5 MG TAB PO SCH (10:30)
[2016-10-24] MEDS: buPROPion SR 150 MG TABLET.ER PO SCH (10:30)
[2016-10-24] MEDS: AZITHROMYCIN 500 MG TAB PO SCH (10:30)
[2016-10-24] MEDS: METOPROLOL TARTRATE 25 MG TAB PO SCH (10:30)
[2016-10-24] MEDS: FENOFIBRATE 160 MG TAB PO SCH (10:30)
[2016-10-24] MEDS: ATORVASTATIN 10 MG TAB PO SCH (10:30)
[2016-10-24] MEDS: ISOSORBIDE MONONITRATE ER 30 MG TAB.ER.24H PO SCH (10:30)
[2016-10-24] MEDS: FUROSEMIDE 40 MG TAB PO SCH (10:30)
[2016-10-24] MEDS: VENLAFAXINE HCL 75 MG TAB PO SCH (10:31)
[2016-10-24] MEDS: OXYBUTYNIN 15 MG TAB.ER.24 PO SCH ×2 (10:32→21:17)
[2016-10-24] MEDS: LORATADINE 10 MG TAB PO SCH (10:32)
--- NOTE | 2016-10-24 10:51 | CDI ---
In responding to this query, please exercise your independent professional judgment. The [facility] Coding Staff and Clinical Documentation Specialists appreciate your assistance in clarifying documentation, maintaining compliance with coding guidelines, accurately documenting patients condition and capturing severity of illness. The fact that a question is asked does not imply that any particular answer is desired or expected. Communication forms are a method of clarifying documentation and are not made part of the Legal Health Record. Thank you in advance for your clarification. Last Revision, March 2015 Reanna Mendez [address] [place] [address] Documentation Clarification Form Date: 10/24/2016 10:38:00 AM From: Cynthia Anaya RN, CDS Admit Date: 10/21/2016 6:20:00 PM Patient Name: Grecia Jose Visit Number: [id number] Dr. Delma Howard, History/Risk Factors : 75 yo female presents to ER for c/o fall and shortness of breath. Has past medical history of CAD, HTN, Dementia, Diabetes and GERD Current BUN/CR/GFR: 43/01/>60 Patients Baseline: GFR: GFR range from October 2015 33-40 Clinical Indicators : GFR since admission: 54-44-49->60 Treatment: Monitor BUN/CR/GFR, IV rocephin, I&O, Patients medications include: In order to capture the severity of condition, please clarify if the condition signifies: CKD Stage 1 (GFR > 90) CKD Stage 2 (GFR 60-89) CKD Stage 3 (GFR 30-59) CKD Stage 4 (GFR 15-29) CKD Stage 5 (GFR <15) Unable to determine Other condition, please specify Please document in your progress notes and discharge summary in order to capture severity of illness and risk of mortality. Include clinical findings that support your diagnosis. FYI: Press F11 to launch patient chart. __x___ Place X here if this finding has no clinical significance, is not applicable or if you are not able to provide any additional documentation. SOURAVD
[2016-10-24 10:55] VITALS: BMI 38.9
[2016-10-24 11:37] LABS: Glucose,Whole Blood 135 mg/dL (75-99)
--- NOTE | 2016-10-24 12:22 | P.PN ---
Subjective Principal diagnosis: Diastolic congestive heart failure This is a 75-year-old female who presented to the hospital after experiencing a fall at home. She was also experiencing some symptoms of shortness of breath. Patient has history of sleep apnea, hypertension, diabetes, hyperlipidemia, and morbid obesity. Patient was being treated for diastolic congestive heart failure as well as renal insufficiency and anemia. She is currently on by mouth Lasix 40 mg by mouth daily. Blood pressure 142/60 with a heart rate in the 60s. 90% on 5 L high flow. Potassium 4.4, BUN 43, creatinine 1.0. Objective - Vital Signs Vital signs: Vital Signs Temp 97.0 F L 10/24/16 08:00 Pulse 81 10/24/16 08:00 Resp 18 10/24/16 08:00 BP 161/65 10/24/16 08:00 Pulse Ox 90 L 10/24/16 08:00 Intake & Output 10/23/16 10/24/16 10/24/16 18:59 06:59 18:59 Intake Total 590 Output Total 700 300 Balance -110 -300 Weight 106.2 kg 106.2 kg Intake: Intake, IV Titration 50 Amount cefTRIAXone 1,000 mg In 50 Sodium Chloride 0.9% 50 ml @ 100 mls/hr IVPB Q24HR [facility] Rx#:[id number] Oral 540 Output: Urine 700 300 Other: Voiding Method Toilet Toilet Diaper Diaper # Voids 1 # Bowel Movements 1 - Exam PHYSICAL EXAMINATION: HEENT: Head is atraumatic, normocephalic. Pupils equal, round. Neck is supple. There is no elevated jugular venous pressure. HEART EXAMINATION: Heart S1, S2 normal. No murmur or gallop heard. CHEST EXAMINATION: Lungs reveal scattered fine rhonchi throughout. ABDOMEN: Soft, obese, nontender. Bowel sounds are heard. No organomegaly noted. EXTREMITIES: 2+ peripheral pulses with mild evidence of peripheral edema and no calf tenderness noted. NEUROLOGIC patient is awake, alert and oriented -3. . - Labs CBC & Chem 7: 10/22/16 05:52 10/24/16 05:47 Labs: Abnormal Lab Results - Last 24 Hours (Table) 10/23/16 10/23/16 10/24/16 Range/Units 17:00 20:56 05:47 Chloride 95 L (98-107) mmol/L Carbon Dioxide 40 H* (22-30) mmol/L BUN 43 H (7-17) mg/dL POC Glucose (mg/dL) 215 H 249 H (75-99) mg/dL 10/24/16 Range/Units 11:31 Chloride (98-107) mmol/L Carbon Dioxide (22-30) mmol/L BUN (7-17) mg/dL POC Glucose (mg/dL) 135 H (75-99) mg/dL Microbiology - Last 24 Hours (Table) 10/22/16 01:00 Urine Culture - Final Urine,Clean Catch Assessment and Plan (1) Diastolic CHF, acute on chronic Status: Acute (2) Morbid obesity Status: Acute (3) Hyperlipemia Status: Acute (4) HTN (hypertension) Status: Acute (5) Diabetes Status: Acute (6) GERD (gastroesophageal reflux disease) Status: Acute Plan: From cardiology's perspective, we will recommend to continue the patient on her current medications. Okay for discharge once cleared by the primary. DNP note has been reviewed, I agree with a documented findings and plan of care. Patient was seen and examined.
--- NOTE | 2016-10-24 15:05 | XR ---
EXAMINATION TYPE: XR chest 1V DATE OF EXAM: 10/24/2016 CLINICAL HISTORY: Difficulty breathing and CHF progress study. TECHNIQUE: Single AP portable upright view of the chest is obtained. COMPARISON: Chest x-ray from 3 days earlier FINDINGS: Exam is suboptimal due to portable technique and patient's large body habitus. There is ca rdiomegaly with central vascular congestion felt present. There is more prominent left hilar opacity and underlying infiltrate and/or atelectasis is not excluded. There is possible new silhouetting of l eft hemidiaphragm. Less rotation noted on current study. No mediastinal shift is seen. Osseous struct ures are intact. IMPRESSION: There is cardiomegaly with possible central vascular congestion and left mid to lower vazquez g infiltrate and/or atelectasis stable or slightly more prominent versus prior study. Follow up study advised.
--- NOTE | 2016-10-24 15:52 | P.PN ---
Subjective 75-year-old morbidly obese female patient with severe obesity, obstructive sleep apnea and a breast hypoventilation syndrome and chronic hypoxic and hypercapnic the story failure whereas been noncompliant to CPAP therapy. The patient admits that she has a CPAP machine at home however she does not utilize on a regular basis. The patient came into the emergency department she days back because of increased shortness of breath. She apparently was in her scooter and she fell off. She did not surgery herself. She denies having any chest pain or palpitation. She denies having any cough or wheezing or any fever chills or night sweats. Chest x-ray was consistent with pulmonary edema. The patient was placed on diuretics and she is still diuresing for now. She is less short of breath. She has no specific complaints otherwise for now. Objective - Vital Signs Vital signs: Vital Signs Temp 97.0 F L 10/24/16 08:00 Pulse 68 10/24/16 12:00 Resp 20 10/24/16 12:00 BP 142/59 10/24/16 12:00 Pulse Ox 89 L 10/24/16 12:00 Intake & Output 10/23/16 10/24/16 10/24/16 18:59 06:59 18:59 Intake Total 590 360 Output Total 700 300 600 Balance -110 -300 -240 Weight 106.2 kg 106.2 kg Intake: Intake, IV Titration 50 Amount cefTRIAXone 1,000 mg In 50 Sodium Chloride 0.9% 50 ml @ 100 mls/hr IVPB Q24HR [facility] Rx#:[id number] Oral 540 360 Output: Urine 700 300 600 Other: Voiding Method Toilet Toilet Diaper Diaper # Voids 1 2 # Bowel Movements 1 - Exam Morbidly obese, calm and comfortable, no acute distress.Head exam was generally normal. There was no scleral icterus or corneal arcus. Mucous membranes were moist. Neck is short and supple and there is significant crowding of the posterior oropharynx. The patient has a Mallampati class IV. There is no goiter or neck masses. Lungs sounds are diminished in lung bases bilaterally. No wheezes or rhonchi or any crackles.Cardiac exam revealed the PMI to be normally situated and sized. The rhythm was regular and no extrasystoles were noted during several minutes of auscultation. The first and second heart sounds were normal and physiologic splitting of the second heart sound was noted. There were no murmurs, rubs, clicks, or gallops. Abdomen is soft and nontender. Obese. No direct tenderness. No rebound tenderness. No guarding. Extremities show trace edema and there is no cyanosis or clubbing at this point. Neurologically the patient is awake and alert. - Labs CBC & Chem 7: 10/22/16 05:52 10/24/16 05:47 Labs: Abnormal Lab Results - Last 24 Hours (Table) 10/23/16 10/23/16 10/24/16 Range/Units 17:00 20:56 05:47 Chloride 95 L (98-107) mmol/L Carbon Dioxide 40 H* (22-30) mmol/L BUN 43 H (7-17) mg/dL POC Glucose (mg/dL) 215 H 249 H (75-99) mg/dL 10/24/16 Range/Units 11:31 Chloride (98-107) mmol/L Carbon Dioxide (22-30) mmol/L BUN (7-17) mg/dL POC Glucose (mg/dL) 135 H (75-99) mg/dL Microbiology - Last 24 Hours (Table) 10/22/16 01:00 Urine Culture - Final Urine,Clean Catch Assessment and Plan Plan: Assessment 1 acute on top of chronic hypoxic respiratory failure. Acute decompensation is essentially due to decompensated heart failure and pulmonary edema. On today's chest x-ray the patient's volume status is improving. The patient is not having any significant acute respiratory distress at this point. Echocardiogram is to follow. 2 morbid obesity 3 chronic hypoxic respiratory failure 4 chronic hypercapnic respiratory failure 5 obstructive sleep apnea/hypoventilation syndrome 6 CHF with diastolic dysfunction, suspected 7 hyperlipidemia 8 hypertension 9 diabetes mellitus 10 GERD Plan Continue the patient on diuretics. The patient was on IV Lasix and apparent that she got switched to oral. I do not personally see any evidence of pneumonia at this point and I think a representation essentially due to decompensated heart failure. An echocardiogram should be ordered if not already done. Strongly encouraged this patient going back on her BiPAP machine. Is a BiPAP machine at the bedside which she is not using on a regular basis. This is set at a pressure of 10/5 cm of water with an FiO2 of 50%. I' ll be glad to review and make any adjustments on her home machine if needed. She will obviously not a sleep apnea evaluation at a later stage and I would suggest doing this immediately after she gets thespital.
[2016-10-24 16:51] LABS: Glucose,Whole Blood 95 mg/dL (75-99)
--- NOTE | 2016-10-24 20:04 | PN ---
Patient is in respiratory distress at this point of time and patient is still wheezing quite a bit and patient will be started back on prednisone. Patient has elevated bicarbonate secondary to CO2 retention I believe. Patient may end up needing BIPAP and if she does not do well may need intubation and patient is on 5 liters of oxygen at this point of time. Patient's blood sugars were low because of this, systemic steroids were discontinued yesterday because of which I cut down dose of Lantus and Aspart which we may need to increase since we are starting her back on steroids. REVIEW OF SYSTEMS: CARDIOVASCULAR: As described in history of present illness. PULMONARY: Denied any shortness of breath. No cough or hemoptysis. GASTROINTESTINAL: No diarrhea, nausea or vomiting. No abdominal pain. Normoactive bowel sounds. NEUROLOGIC: No headaches, no weakness, no numbness. Medications are reviewed. PHYSICAL EXAMINATION: Temperature 97.0, pulse of 68, respiratory rate of 20, blood pressure 140/69. Saturating at 89% on 5 L O2 by nasal cannula. GENERAL: Morbidly obese. Alert and oriented x3. He is in mild to moderate respiratory distress. HEENT: Pupils are round and equally reacting to light. EOMI. No scleral icterus. No conjunctival pallor. Normocephalic, atraumatic. No pharyngeal erythema. No thyromegaly. CARDIOVASCULAR: S1 and S2 present. No murmurs, rubs, or gallops. PULMONARY: Significant expiratory wheezing was appreciated. No crackles were appreciated. Limited air entry into bilateral lung bradford. ABDOMEN: Soft, nontender, nondistended, normoactive bowel sounds. No palpable organomegaly. MUSCULOSKELETAL: No joint swelling or deformity. EXTREMITIES: No cyanosis, clubbing, or pedal edema. NEUROLOGICAL: Gross neurological examination did not reveal any focal deficits. SKIN: No rashes. LABORATORY DATA: Bicarbonate is 40, BUN is 43, creatinine is 1.01, which is an improvement compared to yesterday. Patient is on 40 mg of Lasix at this point of time. 1. Acute hypoxic as well as hypercapnic respiratory failure. I believe it is mostly due to either pneumonia along with chronic obstructive pulmonary disease exacerbation. Patient will be started back on ( ) patient will continue with IV antibiotics at this point of time. Patient will be started back on prednisone. Patient will be started on Rocephin as well. My suspicion for hypoxic respiratory failure is low that congestive heart failure is causing that, although I cannot completely rule out diastolic dysfunction and congestive heart failure and the chest x-ray is not really informative because of her morbid obesity and neither is clinical exam. 2. Acute renal failure, prerenal azotemia due to excessive diuretic therapy which improved at this point of time. 3. Possibility of congestive heart failure, chronic diastolic dysfunction with acute exacerbation. 4. Possible right lower lobe pneumonia. 5. Morbid obesity with severe restrictive lung disease with a possibility of sleep apnea. 6. Type 2 diabetes mellitus, management of Type 2 diabetes mellitus as mentioned earlier in the interval history. 7. Diabetic peripheral neuropathy. 8. Hypertension. 9. Hyperlipidemia., 10. Depression.
[2016-10-24 20:50] LABS: Glucose,Whole Blood 226 mg/dL (75-99)
[2016-10-24] MEDS: VENLAFAXINE HCL 37.5 MG TAB PO SCH (21:17)
[2016-10-25] MEDS ORDERED: ALPRAZolam 0.25 MG TAB PO PRN (01:37)
[2016-10-25] MEDS ORDERED: ACETAMINOPHEN TAB 325 MG TAB PO PRN (01:37)
[2016-10-25] MEDS ORDERED: ONDANSETRON 4 MG/2 ML VIAL IVP PRN (01:38)
[2016-10-25 06:01] LABS: Glucose,Whole Blood 194 mg/dL (75-99)
[2016-10-25] MEDS: PANTOPRAZOLE 40 MG TABLET PO SCH (06:18)
[2016-10-25] MEDS: INSULIN LISPRO (humaLOG) 300 UNIT/3 ML VIAL SQ SCH ×6 (06:19→20:22)
[2016-10-25 07:22] LABS: Anion Gap 9 mmol/L; Blood Urea Nitrogen 38 mg/dL (7-17); Calcium 9.2 mg/dL (8.4-10.2); Carbon Dioxide 36 mmol/L (22-30); Chloride 96 mmol/L (98-107); Glucose 188 mg/dL (74-99); Non-African American GFR(MDRD) 57 (>60 ml/min/1.73 sqM); Potassium 4.3 mmol/L (3.5-5.1); Sodium 141 mmol/L (137-145)
[2016-10-25] MEDS: FUROSEMIDE 40 MG TAB PO SCH (08:27)
[2016-10-25] MEDS: METOPROLOL TARTRATE 25 MG TAB PO SCH (08:27)
[2016-10-25] MEDS: buPROPion SR 150 MG TABLET.ER PO SCH (08:27)
[2016-10-25] MEDS: AZITHROMYCIN 500 MG TAB PO SCH (08:27)
[2016-10-25] MEDS: amLODIPine 5 MG TAB PO SCH (08:27)
[2016-10-25] MEDS: ATORVASTATIN 10 MG TAB PO SCH (08:27)
[2016-10-25] MEDS: LORATADINE 10 MG TAB PO SCH (08:27)
[2016-10-25] MEDS: ISOSORBIDE MONONITRATE ER 30 MG TAB.ER.24H PO SCH (08:27)
[2016-10-25] MEDS: predniSONE 20 MG TAB PO SCH (08:28)
[2016-10-25] MEDS: VENLAFAXINE HCL 75 MG TAB PO SCH (08:28)
[2016-10-25] MEDS: OXYBUTYNIN 15 MG TAB.ER.24 PO SCH ×2 (08:28→20:35)
[2016-10-25] MEDS: FENOFIBRATE 160 MG TAB PO SCH (08:29)
[2016-10-25] MEDS: INSULIN GLARGINE 100 UNIT/ML 10 ML VIAL SQ SCH (08:35)
--- NOTE | 2016-10-25 12:51 | P.PN ---
Subjective 75-year-old morbidly obese female patient with severe obesity, obstructive sleep apnea and a breast hypoventilation syndrome and chronic hypoxic and hypercapnic the story failure whereas been noncompliant to CPAP therapy. The patient admits that she has a CPAP machine at home however she does not utilize on a regular basis. The patient came into the emergency department she days back because of increased shortness of breath. She apparently was in her scooter and she fell off. She did not surgery herself. She denies having any chest pain or palpitation. She denies having any cough or wheezing or any fever chills or night sweats. Chest x-ray was consistent with pulmonary edema. The patient was placed on diuretics and she is still diuresing for now. She is less short of breath. She has no specific complaints otherwise for now. On 10/25/2016, this patient is being seen in follow-up. She has no specific complaints. Had a discussion with her regarding the importance of CPAP/BiPAP use however the patient has set up her mind that she does not want this to of treatment at all. She is not having any chest pain. She is still diuresing her net fluid balance has been negative over the past 24-48 hours. The patient remains on diuretics and the patient is on oral Lasix 40 mg by mouth on a daily basis. The patient's electrolytes are within normal limits. The bicarb level is elevated at 36 and this is compensated for the 2 chronic hypercapnic respiratory failure. Renal function is stable. She is on a prednisone burst taper starting with 40 mg pH is still and accommodation Rocephin and Zithromax which should be able to complete. Rest of the medication were reviewed. Objective - Vital Signs Vital signs: Vital Signs Temp 98.1 F 10/25/16 04:00 Pulse 96 10/25/16 08:00 Resp 18 10/25/16 08:00 BP 150/68 10/25/16 08:00 Pulse Ox 96 10/25/16 08:00 Intake & Output 10/24/16 10/25/16 10/25/16 18:59 06:59 18:59 Intake Total 600 360 Output Total 1221 Balance -621 360 Weight 106.2 kg 106 kg Intake: Oral 600 360 Output: Urine 1220 Urine/Stool Mix 1 Other: Voiding Method Toilet Toilet Toilet Diaper Diaper Diaper # Voids 1 1 - Exam Morbidly obese, calm and comfortable, no acute distress.Head exam was generally normal. There was no scleral icterus or corneal arcus. Mucous membranes were moist. Neck is short and supple and there is significant crowding of the posterior oropharynx. The patient has a Mallampati class IV. There is no goiter or neck masses. Lungs sounds are diminished in lung bases bilaterally. No wheezes or rhonchi or any crackles.Cardiac exam revealed the PMI to be normally situated and sized. The rhythm was regular and no extrasystoles were noted during several minutes of auscultation. The first and second heart sounds were normal and physiologic splitting of the second heart sound was noted. There were no murmurs, rubs, clicks, or gallops. Abdomen is soft and nontender. Obese. No direct tenderness. No rebound tenderness. No guarding. Extremities show trace edema and there is no cyanosis or clubbing at this point. Neurologically the patient is awake and alert. - Labs CBC & Chem 7: 10/22/16 05:52 10/25/16 06:14 Labs: Abnormal Lab Results - Last 24 Hours (Table) 10/24/16 10/25/16 10/25/16 Range/Units 20:47 05:57 06:14 Chloride 96 L (98-107) mmol/L Carbon Dioxide 36 H (22-30) mmol/L BUN 38 H (7-17) mg/dL Glucose 188 H (74-99) mg/dL POC Glucose (mg/dL) 226 H 194 H (75-99) mg/dL Assessment and Plan Plan: Assessment 1 acute on top of chronic hypoxic respiratory failure. Acute decompensation is essentially due to decompensated heart failure and pulmonary edema. On today's chest x-ray the patient's volume status is improving. The patient is not having any significant acute respiratory distress at this point. Echocardiogram is to follow. 2 morbid obesity 3 chronic hypoxic respiratory failure 4 chronic hypercapnic respiratory failure 5 obstructive sleep apnea/hypoventilation syndrome 6 CHF with diastolic dysfunction, suspected 7 hyperlipidemia 8 hypertension 9 diabetes mellitus 10 GERD Plan Repeat chest x-ray in a.m. Continue oral Lasix. We'll obtain echocardiogram to assess LV function if not done over the past 6 months. We will discuss with her again the need for using a CPAP/BiPAP at a later stage. I'm not optimistic that the patient is open to my suggestion unfortunately she has ,severe cellulitic obstructive sleep apnea, at least on clinical grounds
--- NOTE | 2016-10-25 14:59 | P.PN ---
Subjective Principal diagnosis: Diastolic congestive heart failure This is a 75-year-old female who presented to the hospital after experiencing a fall at home. She was also experiencing some symptoms of shortness of breath. Patient has history of sleep apnea, hypertension, diabetes, hyperlipidemia, and morbid obesity. Patient was being treated for diastolic congestive heart failure as well as renal insufficiency and anemia. She is currently on by mouth Lasix 40 mg by mouth daily. Objective - Vital Signs Vital signs: Vital Signs Temp 98.1 F 10/25/16 04:00 Pulse 96 10/25/16 08:00 Resp 18 10/25/16 08:00 BP 150/68 10/25/16 08:00 Pulse Ox 96 10/25/16 08:00 Intake & Output 10/24/16 10/25/16 10/25/16 18:59 06:59 18:59 Intake Total 600 360 Output Total 1221 Balance -621 360 Weight 106.2 kg 106 kg Intake: Oral 600 360 Output: Urine 1220 Urine/Stool Mix 1 Other: Voiding Method Toilet Toilet Toilet Diaper Diaper Diaper # Voids 1 1 1 - Exam PHYSICAL EXAMINATION: HEENT: Head is atraumatic, normocephalic. Pupils equal, round. Neck is supple. There is no elevated jugular venous pressure. HEART EXAMINATION: Heart S1, S2 normal. No murmur or gallop heard. CHEST EXAMINATION: Lungs reveal scattered fine rhonchi throughout. ABDOMEN: Soft, obese, nontender. Bowel sounds are heard. No organomegaly noted. EXTREMITIES: 2+ peripheral pulses with mild evidence of peripheral edema and no calf tenderness noted. NEUROLOGIC patient is awake, alert and oriented -3. . - Labs CBC & Chem 7: 10/22/16 05:52 10/25/16 06:14 Labs: Abnormal Lab Results - Last 24 Hours (Table) 10/24/16 10/25/16 10/25/16 Range/Units 20:47 05:57 06:14 Chloride 96 L (98-107) mmol/L Carbon Dioxide 36 H (22-30) mmol/L BUN 38 H (7-17) mg/dL Glucose 188 H (74-99) mg/dL POC Glucose (mg/dL) 226 H 194 H (75-99) mg/dL Assessment and Plan (1) Diastolic CHF, acute on chronic Status: Acute (2) Morbid obesity Status: Acute (3) Hyperlipemia Status: Acute (4) HTN (hypertension) Status: Acute (5) Diabetes Status: Acute (6) GERD (gastroesophageal reflux disease) Status: Acute Plan: From cardiology's perspective, we will recommend to continue the patient on her current medications. Okay for discharge once cleared by the primary. We will follow this patient with you now on an as-needed basis only, please don't hesitate to call with any questions. DNP note has been reviewed, I agree with a documented findings and plan of care. Patient was seen and examined.
[2016-10-25 16:54] LABS: Glucose,Whole Blood 431 mg/dL (75-99)
[2016-10-25] MEDS: INSULIN REGULAR 100 UNIT in SODIUM CHLORIDE 0.9% 100 ML IV SCH ×2 (18:40→22:08)
[2016-10-25 20:06] LABS: Glucose,Whole Blood 511 mg/dL (75-99)
[2016-10-25] MEDS: VENLAFAXINE HCL 37.5 MG TAB PO SCH (20:35)
[2016-10-25 20:49] LABS: Glucose,Whole Blood 451 mg/dL (75-99)
--- NOTE | 2016-10-25 21:11 | PN ---
DATE OF SERVICE: 10/25/2016 CHIEF COMPLAINT: Shortness of breath. HISTORY OF PRESENT ILLNESS: This 75 -year-old woman with past medical history of multiple medical problems, was admitted with shortness of breath, history of thought to be multifactorial, admitted with COPD , possible pneumonia, fluid overload and congestive heart failure. The patient also had acute on chronic renal failure. The patient also had acute hypoxic hypercapnic respiratory failure. The patient apparently refusing BiPAP and chest x-ray still showed significant lesions and cardiology as well as Dr. Montez following the patient closely. Past medical history reviewed. REVIEW OF SYSTEMS: CARDIOVASCULAR: As mentioned earlier. RESPIRATORY: As mentioned earlier. GASTROINTESTINAL: No nausea or vomiting. : No dysuria. Nervous system: No numbness or weakness. Current medications: 1. Tylenol 650 q.4 p.r.n. 2. Xanax 0.5 q.i.d. 3. Norvasc 10 mg p.o. daily. 4. Lipitor 10 mg p.o. daily. 5. Zithromax 500 mg p.o. daily. 6. Wellbutrin SR 150 mg p.o. daily. 7. Rocephin 1 gm IV daily. 8. Lofibra 160 mg p.o. daily. 9. Lasix 40 mg p.o. daily. 10. Lantus 30 units subcu in the morning.. 11. Humalog scale. 12. Humalog 7 units a.c. t.i.d. 13. Imdur 30 mg p.o. daily. 14. Claritin 10 mg. 15. Lopressor 25 mg p.o. daily. 16. Zofran 4 mg q.6h p.r.n. 17. Ditropan XL 15 mg p.o. b.i.d. 18. Protonix 40 mg q.h.s. 19. Prednisone 40 mg daily. 20. Effexor 37.5 mg q.h.s. 21. Effexor 75 mg in the morning. PHYSICAL EXAMINATION: The patient is alert and oriented times three. Pulse 68, blood pressure 140/72, respiratory rate 16, temperature 98.9, pulse ox 98% on 5 L. HEENT: Conjunctivae normal. Oral mucosa moist. NECK: No jugular venous distention. No carotid bruit. No lymph node enlargement. CARDIOVASCULAR: S1, S2 muffled. RESPIRATORY: Breath sounds diminished at the bases. Bilateral scattered rhonchi and crackles. ABDOMEN: Soft, obese, nontender. Legs: Minimal leg edema. CENTRAL NERVOUS SYSTEM: Diffusely weak. LABS: WBC 11.1, hemoglobin 10.7. ABGs noted. Creatinine 0.96. Chest x-ray . ASSESSMENT: 1. Shortness of breath multifactorial, chronic obstructive pulmonary disease acute exacerbation as well as congestive heart failure, acute exacerbation, with acute on chronic diastolic dysfunction with acute hypoxic hypercarbic respiratory failure. 2. Possible left lower lobe pneumonia gram-negative or pleural effusion. 3. Acute renal failure, possibly prerenal azotemia, with acute on chronic renal failure. 4. Morbid obesity with severe restrictive lung disease and possible sleep apnea. 5. Noncompliance with the CPAP. 6. Diabetes mellitus type 2. 7. Diabetic peripheral neuropathy. 8. Hypertension, essential history. 9. Hyperlipidemia. 10. Depression, not otherwise specified. 11. Obesity with body mass index 38.9. 12. Mild hyperkalemia secondary to renal failure. 13. Urinary tract infection. 14. Increased WBC. 15. Anemia, microcytic anemia of chronic disease and nutritional. 16. Gait dysfunction. 17. History of dementia. 18. Hyperlipidemia. 19. FULL CODE. RECOMMENDATIONS AND DISCUSSION: In this 75-year-old woman who presented with multiple complex medical problems, we will monitor the patient closely. Continue the current medications, continue with symptomatic treatment. Continue IV antibiotics. Continue to monitor fluid and electrolytes balance closely. Continue steroids. Continue the rest of medications. Guarded prognosis because of multiple complex medical issues. We will closely follow with cardiology and pulmonology. Guarded prognosis. Further recommendations to follow. I would also recommend PT, OT evaluation and evaluate for ECF placement as well. See orders for further details. MTDD
[2016-10-25 21:15] LABS: Glucose,Whole Blood 447 mg/dL (75-99)
[2016-10-25 21:32] LABS: Glucose,Whole Blood 402 mg/dL (75-99)
[2016-10-25 22:27] LABS: Glucose,Whole Blood 379 mg/dL (75-99)
[2016-10-25 22:54] LABS: Glucose,Whole Blood 337 mg/dL (75-99)
[2016-10-25 23:15] LABS: Glucose,Whole Blood 245 mg/dL (75-99)
[2016-10-26 01:13] LABS: Glucose,Whole Blood 107 mg/dL (75-99)
[2016-10-26 02:30] LABS: Glucose,Whole Blood 53 mg/dL (75-99)
[2016-10-26 02:30] LABS: Glucose,Whole Blood 41 mg/dL (75-99)
[2016-10-26 02:48] LABS: Glucose,Whole Blood 102 mg/dL (75-99)
[2016-10-26 04:15] LABS: Glucose,Whole Blood 46 mg/dL (75-99)
[2016-10-26 04:34] LABS: Glucose,Whole Blood 123 mg/dL (75-99)
[2016-10-26 05:36] LABS: Glucose,Whole Blood 55 mg/dL (75-99)
[2016-10-26 06:22] LABS: Glucose,Whole Blood 97 mg/dL (75-99)
[2016-10-26 07:24] LABS: Glucose,Whole Blood 76 mg/dL (75-99)
[2016-10-26] MEDS ORDERED: INSULIN LISPRO (humaLOG) 300 UNIT/3 ML VIAL SQ SCH (07:30)
[2016-10-26] MEDS: INSULIN LISPRO (humaLOG) 300 UNIT/3 ML VIAL SQ SCH ×8 (08:02→21:05)
--- NOTE | 2016-10-26 08:03 | XR ---
EXAMINATION TYPE: XR chest 2V DATE OF EXAM: 10/26/2016 HISTORY: chf. REFERENCE: Previous study dated 10/24/2016. FINDINGS: The study is compromised by the patient's tremendous size. There is multichamber cardiac enlargement. There is vascular congestion and pulmonary edema. The over all appearance appears to have worsened. The distal right clavicle is absent. This may be due to erosive change or iatrogenic. This is stable in its appearance. IMPRESSION: 1. WORSENING CHANGES OF HEART FAILURE. 2. ABSENCE OF THE DISTAL RIGHT CLAVICLE FROM UNKNOWN ETIOLOGY.
[2016-10-26] MEDS: INSULIN GLARGINE 100 UNIT/ML 10 ML VIAL SQ SCH (08:07)
[2016-10-26] MEDS: ATORVASTATIN 10 MG TAB PO SCH ×2 (08:09→08:25)
[2016-10-26] MEDS: PANTOPRAZOLE 40 MG TABLET PO SCH ×2 (08:09→08:23)
[2016-10-26] MEDS: AZITHROMYCIN 500 MG TAB PO SCH ×2 (08:09→08:25)
[2016-10-26] MEDS: FUROSEMIDE 40 MG TAB PO SCH ×2 (08:09→08:25)
[2016-10-26] MEDS: predniSONE 20 MG TAB PO SCH ×2 (08:09→08:25)
[2016-10-26] MEDS: FENOFIBRATE 160 MG TAB PO SCH ×2 (08:09→08:25)
[2016-10-26] MEDS: METOPROLOL TARTRATE 25 MG TAB PO SCH ×2 (08:09→08:25)
[2016-10-26] MEDS: LORATADINE 10 MG TAB PO SCH ×2 (08:09→08:25)
[2016-10-26] MEDS: VENLAFAXINE HCL 75 MG TAB PO SCH ×2 (08:09→08:25)
[2016-10-26] MEDS: amLODIPine 5 MG TAB PO SCH ×2 (08:09→08:25)
[2016-10-26] MEDS: buPROPion SR 150 MG TABLET.ER PO SCH ×2 (08:09→08:25)
[2016-10-26] MEDS: OXYBUTYNIN 15 MG TAB.ER.24 PO SCH ×2 (08:09→20:38)
[2016-10-26] MEDS: ISOSORBIDE MONONITRATE ER 30 MG TAB.ER.24H PO SCH ×2 (08:09→08:25)
[2016-10-26 09:04] LABS: Glucose,Whole Blood 97 mg/dL (75-99)
[2016-10-26] MEDS ORDERED: FUROSEMIDE 10 MG/ML 4 ML VIAL IV SCH (11:15)
[2016-10-26 12:03] LABS: Glucose,Whole Blood 83 mg/dL (75-99)
[2016-10-26 12:40] LABS: Anisocytosis Slight; Basophils % (A) 0 %; CH 20.7; CHCM 28.1; Eosinophils # (A) 0.1 k/uL (0-0.7); Eosinophils % (A) 1 %; HCT 40.9 % (34.0-46.0); HDW 3.37; HGB 11.5 gm/dL (11.4-16.0); Hypochromasia Marked; Luc # (Auto) 0.23; Luc % (Auto) 3; Lymphocytes # (A) 1.6 k/uL (1.0-4.8); Lymphocytes % (A) 17 %; MCH 20.7 pg (25.0-35.0); MCV 73.9 fL (80.0-100.0); Mean Platelet Volume 7.4; Microcytosis Moderate; Monocytes # (A) 0.9 k/uL (0-1.0); Monocytes % (A) 10 %; Neutrophils # (A) 6.6 k/uL (1.3-7.7); Neutrophils % (A) 69 %; RBC 5.54 m/uL (3.80-5.40); RDW 17.5 % (11.5-15.5); WBC 9.5 k/uL (3.8-10.6); WBC (Perox) 9.22
[2016-10-26 12:46] LABS: Anion Gap 10 mmol/L; Blood Urea Nitrogen 43 mg/dL (7-17); Calcium 8.9 mg/dL (8.4-10.2); Carbon Dioxide 35 mmol/L (22-30); Chloride 95 mmol/L (98-107); Glucose 85 mg/dL (74-99); Non-African American GFR(MDRD) 52 (>60 ml/min/1.73 sqM); Potassium 4.4 mmol/L (3.5-5.1); Sodium 140 mmol/L (137-145)
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
[2016-10-26 17:47] LABS: Glucose,Whole Blood 232 mg/dL (75-99)
[2016-10-26] MEDS: VENLAFAXINE HCL 37.5 MG TAB PO SCH (20:38)
[2016-10-26 20:46] LABS: Glucose,Whole Blood 163 mg/dL (75-99)
[2016-10-26] MEDS: FUROSEMIDE 10 MG/ML 4 ML VIAL IV SCH (20:59)
--- NOTE | 2016-10-27 05:19 | PN ---
This 75-year-old woman who was admitted with multiple medical problems and shortness of breath with COPD and CHF acute exacerbation were closely monitored. The patient is exhibiting noncompliance with medications including BiPAP and refused medications today. The patient is more short of breath. Chest x-ray showed significant increase in the pleural fluid. Dr. Montez is following the patient closely. PAST MEDICAL HISTORY: Reviewed. REVIEW OF SYSTEMS: Could not be taken, the patient is confused. Current medications are reviewed and include: 1. Tylenol 650 q.4 p.r.n. 2. Xanax 0.25 q.i.d. 3. Norvasc 5 mg daily. 4. Lipitor 10 mg daily. 5. Zithromax 500 mg daily. 6. Wellbutrin 150 mg daily. 7. Lasix 40 IV b.i.d. 8. Lantus 30 units subcu q.a.m. 9. Humalog. 10. Imdur 30 mg daily. 11. Claritin. 12. Lopressor. 13. Ditropan. XL 15 mg b.i.d. 14. Prednisone 40 mg daily. 15. Effexor. PHYSICAL EXAMINATION: The patient is alert and oriented x1. Pulse is 72, blood pressure 125/60, respirations 24, temperature 98.1, pulse ox 97% on 5 L. HEENT: Conjunctivae normal. Oral mucosa moist. NECK: Obese. CARDIOVASCULAR: S1 and S2, muffled. RESPIRATORY: Breath sounds diminished at the bases. Bilateral scattered rhonchi and expiratory wheezing. No crackles. ABDOMEN: Soft, nontender. LEGS: No edema, no swelling. NERVOUS SYSTEM: Diffusely weak. LABS: WBC 9.5, hemoglobin 11.5. Glucose 232. ASSESSMENT: 1. Shortness of breath multifactorial, possible chronic obstructive pulmonary disease acute exacerbation as well as congestive heart failure acute exacerbation, with acute on chronic diastolic dysfunction with acute hypoxic hypercarbic respiratory failure. 2. Possible left lower lobe pneumonia gram negative or pleural effusion. 3. Acute renal failure, possibly prerenal azotemia with acute on chronic renal failure, improved. 4. Morbid obesity with severe restrictive lung disease possible sleep apnea. 5. Noncompliance with CPAP and medications. 6. Diabetes mellitus type 2. 7. Diabetic peripheral neuropathy. 8. Hypertension, essential, history. 9. Hyperlipidemia. 10. Depression, not otherwise specified. 11. Obesity with body mass index of 38.9. 12. Mild hyperkalemia secondary to renal failure. 13. Urinary tract infection. 14. Increased WBC. 15. Anemia, microcytic anemia of chronic disease and nutritional. 16. Gait dysfunction. 17. History of dementia. 18. FULL CODE. RECOMMENDATIONS AND DISCUSSION: I recommend to continue current medications, continue monitoring and symptomatic treatment. The patient is refusing several medications. Closely follow with Pulmonary. Increase the dose of Lasix because of increasing lung congestion. Will also get in touch with the legal guardian regarding the further course of action and level resuscitations. Once again, the prognosis guarded. Further recommendations will follow.
[2016-10-27 07:30] LABS: Glucose,Whole Blood 212 mg/dL (75-99)
[2016-10-27] MEDS: INSULIN LISPRO (humaLOG) 300 UNIT/3 ML VIAL SQ SCH ×7 (08:15→20:35)
[2016-10-27] MEDS: PANTOPRAZOLE 40 MG TABLET PO SCH ×2 (08:15→11:58)
[2016-10-27] MEDS: amLODIPine 5 MG TAB PO SCH ×2 (08:15→11:58)
[2016-10-27] MEDS: AZITHROMYCIN 500 MG TAB PO SCH ×2 (08:16→11:58)
[2016-10-27] MEDS: INSULIN GLARGINE 100 UNIT/ML 10 ML VIAL SQ SCH (08:16)
[2016-10-27] MEDS: LORATADINE 10 MG TAB PO SCH (08:16)
[2016-10-27] MEDS: ATORVASTATIN 10 MG TAB PO SCH ×2 (08:16→11:58)
[2016-10-27] MEDS: buPROPion SR 150 MG TABLET.ER PO SCH ×2 (08:16→11:58)
[2016-10-27] MEDS: OXYBUTYNIN 15 MG TAB.ER.24 PO SCH ×3 (08:16→20:33)
[2016-10-27] MEDS: predniSONE 20 MG TAB PO SCH (08:16)
[2016-10-27] MEDS: ISOSORBIDE MONONITRATE ER 30 MG TAB.ER.24H PO SCH (08:16)
[2016-10-27] MEDS: FENOFIBRATE 160 MG TAB PO SCH ×2 (08:16→11:58)
[2016-10-27] MEDS: METOPROLOL TARTRATE 25 MG TAB PO SCH (08:16)
[2016-10-27] MEDS: VENLAFAXINE HCL 75 MG TAB PO SCH (08:16)
[2016-10-27] MEDS: FUROSEMIDE 10 MG/ML 4 ML VIAL IV SCH ×2 (08:17→20:33)
[2016-10-27 12:01] LABS: Glucose,Whole Blood 245 mg/dL (75-99)
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
--- NOTE | 2016-10-27 16:47 | P.PN ---
Subjective 75-year-old morbidly obese female patient with severe obesity, obstructive sleep apnea and a breast hypoventilation syndrome and chronic hypoxic and hypercapnic the story failure whereas been noncompliant to CPAP therapy. The patient admits that she has a CPAP machine at home however she does not utilize on a regular basis. The patient came into the emergency department she days back because of increased shortness of breath. She apparently was in her scooter and she fell off. She did not surgery herself. She denies having any chest pain or palpitation. She denies having any cough or wheezing or any fever chills or night sweats. Chest x-ray was consistent with pulmonary edema. The patient was placed on diuretics and she is still diuresing for now. She is less short of breath. She has no specific complaints otherwise for now. On 10/25/2016, this patient is being seen in follow-up. She has no specific complaints. Had a discussion with her regarding the importance of CPAP/BiPAP use however the patient has set up her mind that she does not want this to of treatment at all. She is not having any chest pain. She is still diuresing her net fluid balance has been negative over the past 24-48 hours. The patient remains on diuretics and the patient is on oral Lasix 40 mg by mouth on a daily basis. The patient's electrolytes are within normal limits. The bicarb level is elevated at 36 and this is compensated for the 2 chronic hypercapnic respiratory failure. Renal function is stable. She is on a prednisone burst taper starting with 40 mg pH is still and accommodation Rocephin and Zithromax which should be able to complete. Rest of the medication were reviewed. The patient is seen again in 10/26/2016 in follow-up on the regular medical floor. She is currently sitting up in the chair at the bedside. She is awake and alert in no acute distress. She has continued to decline the use of the CPAP for her hypoventilation syndrome/hypercapnic respiratory failure. Despite many attempts to rationalize with her. She currently denies any shortness of breath, cough or congestion. Does continue to require 6 L of high flow nasal cannula. She is afebrile. No leukocytosis. She is anxious to go home. The patient is seen again today 10/27/2016 in follow-up on the regular medical floor. She is currently resting comfortably in bed. She is able to lay flat without any acute pulmonary distress. She is maintaining good O2 saturations in the 90s now on 2 L per nasal cannula. Afebrile. She does continue to refuse to utilize a BiPAP machine for her hypercapnic respiratory failure. Objective - Vital Signs Vital signs: Vital Signs Temp 97.4 F L 10/27/16 07:00 Pulse 94 10/27/16 15:32 Resp 18 10/27/16 15:32 BP 180/83 10/27/16 07:00 Pulse Ox 92 L 10/27/16 15:23 Intake & Output 10/26/16 10/27/16 10/27/16 18:59 06:59 18:59 Intake Total 500 Output Total 320 640 Balance 180 -640 Weight 106 kg 106 kg Intake: Intake, IV Titration 100 Amount cefTRIAXone 1,000 mg In 100 Sodium Chloride 0.9% 50 ml @ 100 mls/hr IVPB Q24HR HARITHA Rx#:[id number] Oral 400 Output: Urine 320 640 Other: Voiding Method Bedside Commode Bedside Commode Bedside Commode Diaper Diaper Diaper # Voids 4 1 2 # Bowel Movements 1 - Exam Morbidly obese, calm and comfortable, no acute distress.Head exam was generally normal. There was no scleral icterus or corneal arcus. Mucous membranes were moist. Neck is short and supple and there is significant crowding of the posterior oropharynx. The patient has a Mallampati class IV. There is no goiter or neck masses. Lungs sounds are diminished in lung bases bilaterally. No wheezes or rhonchi or any crackles.Cardiac exam revealed the PMI to be normally situated and sized. The rhythm was regular and no extrasystoles were noted during several minutes of auscultation. The first and second heart sounds were normal and physiologic splitting of the second heart sound was noted. There were no murmurs, rubs, clicks, or gallops. Abdomen is soft and nontender. Obese. No direct tenderness. No rebound tenderness. No guarding. Extremities show trace edema and there is no cyanosis or clubbing at this point. Neurologically the patient is awake and alert. - Labs CBC & Chem 7: 10/26/16 11:56 10/26/16 11:56 Labs: Abnormal Lab Results - Last 24 Hours (Table) 10/26/16 10/26/16 10/27/16 Range/Units 17:46 20:44 07:28 POC Glucose (mg/dL) 232 H 163 H 212 H (75-99) mg/dL 10/27/16 Range/Units 11:59 POC Glucose (mg/dL) 245 H (75-99) mg/dL Assessment and Plan Plan: Assessment 1 acute on top of chronic hypoxic respiratory failure. Acute decompensation is essentially due to decompensated heart failure and pulmonary edema. On today's chest x-ray the patient's volume status is improving. The patient is not having any significant acute respiratory distress at this point. Echocardiogram is to follow. 2 morbid obesity 3 chronic hypoxic respiratory failure 4 chronic hypercapnic respiratory failure 5 obstructive sleep apnea/hypoventilation syndrome 6 CHF with diastolic dysfunction, suspected 7 hyperlipidemia 8 hypertension 9 diabetes mellitus 10 GERD Plan The patient was seen and evaluated by Dr. Montez. Her FiO2 requirements are improved. She is currently down to 2 L. We'll continue with her current medications. We'll continue to follow. Discharge planning is in place.
[2016-10-27 17:34] LABS: Glucose,Whole Blood 213 mg/dL (75-99)
[2016-10-27 20:04] LABS: Glucose,Whole Blood 305 mg/dL (75-99)
[2016-10-27] MEDS: VENLAFAXINE HCL 37.5 MG TAB PO SCH (20:33)
[2016-10-28 02:16] LABS: Glucose,Whole Blood 271 mg/dL (75-99)
--- NOTE | 2016-10-28 06:59 | PN ---
DATE OF SERVICE: 10/27/2016 This 75-year-old woman who was admitted with shortness of breath which is possible multifactorial COPD acute exacerbation as well as CHF acute exacerbation is being closely monitored at this time. The patient also had a psych consultation at this time. The patient is really refusing all the treatment. The psychiatrist thought there is no indication for any psychiatric inpatient or outpatient treatment. The patient continually expresses wishes to go home. We are working with legal guardian also regarding that. PAST MEDICAL HISTORY: Reviewed. REVIEW OF SYSTEMS: CARDIOVASCULAR SYSTEM: No angina. RESPIRATORY: No cough. GI: As mentioned earlier. : No dysuria. NERVOUS SYSTEM: No numbness or weakness. Current medications are: 1. Tylenol 650 q.4 p.r.n. 2. Xanax 0.25 q.i.d. 3. Norvasc 5 mg p.o. daily. 4. Lipitor 10 mg p.o. daily. 5. Zithromax 500 mg p.o. daily. 6. Wellbutrin 150 mg p.o. daily. 7. Rocephin 1 gram IV daily. 8. Lofibra 160 mg p.o. daily. 9. Lasix 40 mg b.i.d. 10. Lantus 30 units subcu q.h.s. 11. Humalog. 12. Imdur 30 mg. 13. Claritin. 14. Lopressor 25 mg daily. 15. Zofran 4 mg q.6. 16. Ditropan XL 15 mg p.o. b.i.d. 17. Protonix 40 mg daily. 18. Prednisone 40 mg. 19. Effexor 37.5 p.o. q.h.s. 20. Effexor 75 mg q.a.m. PHYSICAL EXAMINATION: The patient is alert and oriented x3. Pulse 94, blood pressure 180/83, respirations 20, temperature 97.4, pulse ox 96% on 4 L. HEENT: Conjunctivae normal. Oral mucosa moist. NECK: No jugular venous distention. No carotid bruit. No lymph node enlargement. CARDIOVASCULAR: S1 and S2, muffled. RESPIRATORY: Breath sounds diminished at the bases. Bilateral scattered rhonchi and crackles. Expiratory wheezing also present. ABDOMEN: Soft, obese, nontender. LEGS: No edema, no swelling. NERVOUS SYSTEM: Diffusely weak. LABS: WBC 9.5, hemoglobin 11.5. Creatinine 1.04. ASSESSMENT: 1. Shortness of breath, possible multifactorial with possible chronic obstructive pulmonary disease acute exacerbation as well as congestive heart failure acute exacerbation with acute on chronic diastolic dysfunction with acute hypoxic hypercarbic respiratory failure. 2. Possible left lower lobe pneumonia, gram-negative and pleural effusion. 3. Acute renal failure, possibly prerenal azotemia with acute on chronic renal failure, improved. 4. Morbid obesity with severe restrictive lung disease possible sleep apnea. She has been noncompliant with CPAP and medications. 5. Diabetes mellitus type 2. 6. Diabetic peripheral neuropathy. 7. Hypertension, essential, history. 8. Hyperlipidemia. 9. Depression, not otherwise specified. 10. Obesity with body mass index of 38.9. 11. Mild hyperkalemia secondary to renal failure. 12. Urinary tract infection. 13. Increased WBC. 14. Anemia, microcytic anemia of chronic disease and nutritional. 15. Gait dysfunction. 16. History of dementia. 17. FULL CODE. RECOMMENDATIONS AND DISCUSSION: This 75-year-old woman who presented with multiple complex medical issues. Will monitor the patient closely, continue the current medications. Continue symptomatic treatment. Otherwise, continue with current medications. Continue with diuretics. Otherwise, I also had a detailed discussion with the patient and as well as staff and the social worker palliative care and upper caser. The upper caser and social worker palliative care needs to work with the legal guardian regarding the discharge plan. The patient did not like to continue the treatment. Hospice may be ideal because of multiple complex medical issues including severe COPD and CHF. Further recommendations to follow. SOURAVD
[2016-10-28 07:38] LABS: Glucose,Whole Blood 288 mg/dL (75-99)
[2016-10-28 08:12] LABS: Anisocytosis Slight; Basophils % (A) 0 %; CH 20.7; CHCM 27.4; Eosinophils # (A) 0.1 k/uL (0-0.7); Eosinophils % (A) 1 %; HCT 46.2 % (34.0-46.0); HGB 12.5 gm/dL (11.4-16.0); Hypochromasia Marked; Luc # (Auto) 0.24; Luc % (Auto) 2; Lymphocytes # (A) 1.1 k/uL (1.0-4.8); Lymphocytes % (A) 9 %; MCH 20.5 pg (25.0-35.0); MCHC 27.1 g/dL (31.0-37.0); MCV 75.6 fL (80.0-100.0); Mean Platelet Volume 6.7; Microcytosis Slight; Monocytes # (A) 0.5 k/uL (0-1.0); Monocytes % (A) 5 %; Neutrophils # (A) 9.8 k/uL (1.3-7.7); Neutrophils % (A) 83 %; RBC 6.11 m/uL (3.80-5.40); RDW 17.8 % (11.5-15.5); WBC 11.8 k/uL (3.8-10.6); WBC (Perox) 11.49
[2016-10-28] MEDS: INSULIN LISPRO (humaLOG) 300 UNIT/3 ML VIAL SQ SCH ×4 (08:20→12:06)
[2016-10-28] MEDS: METOPROLOL TARTRATE 25 MG TAB PO SCH (08:21)
[2016-10-28] MEDS: VENLAFAXINE HCL 75 MG TAB PO SCH (08:21)
[2016-10-28] MEDS: AZITHROMYCIN 500 MG TAB PO SCH (08:21)
[2016-10-28] MEDS: PANTOPRAZOLE 40 MG TABLET PO SCH (08:21)
[2016-10-28] MEDS: predniSONE 20 MG TAB PO SCH (08:21)
[2016-10-28] MEDS: ATORVASTATIN 10 MG TAB PO SCH (08:21)
[2016-10-28] MEDS: amLODIPine 5 MG TAB PO SCH (08:21)
[2016-10-28] MEDS: buPROPion SR 150 MG TABLET.ER PO SCH (08:21)
[2016-10-28] MEDS: OXYBUTYNIN 15 MG TAB.ER.24 PO SCH (08:21)
[2016-10-28] MEDS: LORATADINE 10 MG TAB PO SCH (08:22)
[2016-10-28] MEDS: FUROSEMIDE 10 MG/ML 4 ML VIAL IV SCH (08:22)
[2016-10-28] MEDS: ISOSORBIDE MONONITRATE ER 30 MG TAB.ER.24H PO SCH (08:22)
[2016-10-28] MEDS: INSULIN GLARGINE 100 UNIT/ML 10 ML VIAL SQ SCH (08:26)
[2016-10-28 08:28] LABS: Calcium 9.4 mg/dL (8.4-10.2); Potassium 4.4 mmol/L (3.5-5.1)
[2016-10-28 08:35] VITALS: BP 149/70; PULSE 101; RESP 18; TEMP 97.9
[2016-10-28 11:32] LABS: Glucose,Whole Blood 369 mg/dL (75-99)
--- NOTE | 2016-10-28 13:20 | P.PN ---
Subjective 75-year-old morbidly obese female patient with severe obesity, obstructive sleep apnea and a breast hypoventilation syndrome and chronic hypoxic and hypercapnic the story failure whereas been noncompliant to CPAP therapy. The patient admits that she has a CPAP machine at home however she does not utilize on a regular basis. The patient came into the emergency department she days back because of increased shortness of breath. She apparently was in her scooter and she fell off. She did not surgery herself. She denies having any chest pain or palpitation. She denies having any cough or wheezing or any fever chills or night sweats. Chest x-ray was consistent with pulmonary edema. The patient was placed on diuretics and she is still diuresing for now. She is less short of breath. She has no specific complaints otherwise for now. On 10/25/2016, this patient is being seen in follow-up. She has no specific complaints. Had a discussion with her regarding the importance of CPAP/BiPAP use however the patient has set up her mind that she does not want this to of treatment at all. She is not having any chest pain. She is still diuresing her net fluid balance has been negative over the past 24-48 hours. The patient remains on diuretics and the patient is on oral Lasix 40 mg by mouth on a daily basis. The patient's electrolytes are within normal limits. The bicarb level is elevated at 36 and this is compensated for the 2 chronic hypercapnic respiratory failure. Renal function is stable. She is on a prednisone burst taper starting with 40 mg pH is still and accommodation Rocephin and Zithromax which should be able to complete. Rest of the medication were reviewed. The patient is seen again in 10/26/2016 in follow-up on the regular medical floor. She is currently sitting up in the chair at the bedside. She is awake and alert in no acute distress. She has continued to decline the use of the CPAP for her hypoventilation syndrome/hypercapnic respiratory failure. Despite many attempts to rationalize with her. She currently denies any shortness of breath, cough or congestion. Does continue to require 6 L of high flow nasal cannula. She is afebrile. No leukocytosis. She is anxious to go home. The patient is seen again today 10/27/2016 in follow-up on the regular medical floor. She is currently resting comfortably in bed. She is able to lay flat without any acute pulmonary distress. She is maintaining good O2 saturations in the 90s now on 2 L per nasal cannula. Afebrile. She does continue to refuse to utilize a BiPAP machine for her hypercapnic respiratory failure. The patient is seen again today 10/28/2016 in follow-up on the regular medical floor. She continues to maintain good O2 saturations in the 90s on 2 L/m per nasal cannula. She is continued to decline the use of the CPAP/BiPAP in the evenings. She does drop her O2 saturations into the 80s on room air. Objective - Vital Signs Vital signs: Vital Signs Temp 97.9 F 10/28/16 07:00 Pulse 101 H 10/28/16 08:00 Resp 18 10/28/16 08:00 BP 149/70 10/28/16 07:00 Pulse Ox 89 L 10/28/16 07:00 Intake & Output 10/27/16 10/28/16 10/28/16 18:59 06:59 18:59 Intake Total 590 Output Total 640 320 Balance -640 270 Weight 106 kg 106 kg Intake: Oral 590 Output: Urine 640 320 Other: Voiding Method Bedside Commode Bedside Commode Bedside Commode Diaper Diaper Diaper # Voids 2 2 - Exam Morbidly obese, calm and comfortable, no acute distress.Head exam was generally normal. There was no scleral icterus or corneal arcus. Mucous membranes were moist. Neck is short and supple and there is significant crowding of the posterior oropharynx. The patient has a Mallampati class IV. There is no goiter or neck masses. Lungs sounds are diminished in lung bases bilaterally. No wheezes or rhonchi or any crackles.Cardiac exam revealed the PMI to be normally situated and sized. The rhythm was regular and no extrasystoles were noted during several minutes of auscultation. The first and second heart sounds were normal and physiologic splitting of the second heart sound was noted. There were no murmurs, rubs, clicks, or gallops. Abdomen is soft and nontender. Obese. No direct tenderness. No rebound tenderness. No guarding. Extremities show trace edema and there is no cyanosis or clubbing at this point. Neurologically the patient is awake and alert. - Labs CBC & Chem 7: 10/28/16 07:18 10/28/16 07:18 Labs: Abnormal Lab Results - Last 24 Hours (Table) 10/27/16 10/27/16 10/28/16 Range/Units 17:32 20:03 02:14 WBC (3.8-10.6) k/uL RBC (3.80-5.40) m/uL Hct (34.0-46.0) % MCV (80.0-100.0) fL MCH (25.0-35.0) pg MCHC (31.0-37.0) g/dL RDW (11.5-15.5) % Neutrophils # (1.3-7.7) k/uL Chloride (98-107) mmol/L Carbon Dioxide (22-30) mmol/L BUN (7-17) mg/dL Creatinine (0.52-1.04) mg/dL Glucose (74-99) mg/dL POC Glucose (mg/dL) 213 H 305 H 271 H (75-99) mg/dL 10/28/16 10/28/16 10/28/16 Range/Units 07:18 07:18 07:21 WBC 11.8 H (3.8-10.6) k/uL RBC 6.11 H (3.80-5.40) m/uL Hct 46.2 H (34.0-46.0) % MCV 75.6 L (80.0-100.0) fL MCH 20.5 L (25.0-35.0) pg MCHC 27.1 L (31.0-37.0) g/dL RDW 17.8 H (11.5-15.5) % Neutrophils # 9.8 H (1.3-7.7) k/uL Chloride 92 L (98-107) mmol/L Carbon Dioxide 36 H (22-30) mmol/L BUN 36 H (7-17) mg/dL Creatinine 1.14 H (0.52-1.04) mg/dL Glucose 286 H (74-99) mg/dL POC Glucose (mg/dL) 288 H (75-99) mg/dL 10/28/16 Range/Units 11:30 WBC (3.8-10.6) k/uL RBC (3.80-5.40) m/uL Hct (34.0-46.0) % MCV (80.0-100.0) fL MCH (25.0-35.0) pg MCHC (31.0-37.0) g/dL RDW (11.5-15.5) % Neutrophils # (1.3-7.7) k/uL Chloride (98-107) mmol/L Carbon Dioxide (22-30) mmol/L BUN (7-17) mg/dL Creatinine (0.52-1.04) mg/dL Glucose (74-99) mg/dL POC Glucose (mg/dL) 369 H (75-99) mg/dL Assessment and Plan Plan: Assessment 1 acute on top of chronic hypoxic respiratory failure. Acute decompensation is essentially due to decompensated heart failure and pulmonary edema. On today's chest x-ray the patient's volume status is improving. The patient is not having any significant acute respiratory distress at this point. Echocardiogram is to follow. 2 morbid obesity 3 chronic hypoxic respiratory failure 4 chronic hypercapnic respiratory failure 5 obstructive sleep apnea/hypoventilation syndrome 6 CHF with diastolic dysfunction, suspected 7 hyperlipidemia 8 hypertension 9 diabetes mellitus 10 GERD Plan The patient was seen and evaluated by Dr. Montez. Her FiO2 requirements are improved. She is currently down to 2 L. We'll continue with her current medications. We'll continue to follow. We will increase her activity as tolerated. Discharge planning is in place.
--- NOTE | 2016-10-28 13:48 | ECHOF ---
Referral Reason:acute pulmonary edema MEASUREMENTS -------- HEIGHT: 165.1 cm WEIGHT: 104.8 kg BP: 130/40 RVIDd: 3.5 cm (< 3.3) IVSd: 1.3 cm (0.6 - 1.1) LVIDd: 4.1 cm (3.9 - 5.3) LVPWd: 1.0 cm (0.6 - 1.1) IVSs: 1.6 cm LVIDs: 3.1 cm LVPWs: 1.4 cm LA Diam: 4.4 cm (2.7 - 3.8) Ao Diam: 2.7 cm (2.0 - 3.7) AV Cusp: 1.6 cm (1.5 - 2.6) LA Diam: 4.2 cm (2.7 - 3.8) MV EXCURSION: 18.959 mm (> 18.000) MV EF SLOPE: 60 mm/s (70 - 150) EPSS: 0.4 cm RAP: 5.00 mmHg RVSP: 49.01 mmHg FINDINGS -------- Sinus rhythm. This was a technically adequate study. Morbid Obesity There is mild concentric left ventricular hypertrophy. Overall left ventricular systolic function is low-normal with, an EF between 50 - 55 %. The right ventricle is normal in size. The left atrium is mildly dilated. The right atrial size is normal. There is mild aortic valve sclerosis. There is no evidence of aortic regurgitation. Mild mitral annular calcification present. Mild mitral regurgitation is present. Mild tricuspid regurgitation present. There is mild to moderate pulmonary hypertension. The right ventricular systolic pressure, as measured by Doppler, is 49.01mmHg. There is no pulmonic regurgitation present. The aortic root size is normal. Echo free space may represent effusion or a pericardial fat pad. CONCLUSIONS -------- 1. There is mild concentric left ventricular hypertrophy. 2. There is no pulmonic regurgitation present. 3. Echo free space may represent effusion or a pericardial fat pad. 4. Overall left ventricular systolic function is low-normal with, an EF between 50 - 55 %. 5. The left atrium is mildly dilated. 6. There is mild aortic valve sclerosis. 7. Mild mitral annular calcification present. 8. Mild mitral regurgitation is present. 9. Mild tricuspid regurgitation present. 10. There is mild to moderate pulmonary hypertension. 11. The right ventricular systolic pressure, as measured by Doppler, is 49.01mmHg. IN[employer]CTOR [employer]AVING: Naya Bradshaw RDCS
--- NOTE | 2016-10-28 15:20 | DS ---
DATE OF ADMISSION: 10/21/2016 DATE OF DISCHARGE: FINAL DIAGNOSES: 1. Shortness of breath, possibly multifactorial, with chronic obstructive pulmonary disease, acute exacerbation, as well as congestive heart failure, acute exacerbation, with acute on chronic diastolic dysfunction with acute hypoxic hypercarbic respiratory failure. 2. Possible left lower lobe pneumonia, possibly Gram-negative and pleural effusion. 3. Acute renal failure, possibly prerenal azotemia, with acute on chronic renal failure, improved. 4. Morbid obesity with severe restrictive lung disease and possible sleep apnea. 5. Patient is noncompliant with CPAP and medications. 6. Diabetes mellitus, type 2. 7. Diabetic peripheral neuropathy. 8. Hypertension, essential, history. 9. Hyperlipidemia. 10. Depression not otherwise specified. 11. Obesity with a body mass index of 38.9. 12. Mild hyperkalemia secondary to renal failure. 13. Urinary tract infection. 14. Increased white count. 15. Anemia, macrocytic anemic; anemia of chronic disease and nutritional. 16. Gait dysfunction. 17. History of dementia. 18. FULL CODE. DISCHARGE DISPOSITION: The patient will be discharged in stable condition with guarded prognosis. The patient will be transferred to [facility]. Total time taken 35 minutes. HISTORY OF PRESENT ILLNESS: This 75-year-old woman with a past medical history of multiple medical problems, admitted with shortness of breath had features that were multifactorial. The patient also multiple other medical problems, including renal failure. Patient's blood sugar was also elevated. Patient improved significantly. Dr. Montez saw the patient. On exam, vitals are stable. CARDIOVASCULAR SYSTEM: S1, S2 muffled. RESPIRATORY SYSTEM: A few scattered rhonchi. ABDOMEN: Soft. NERVOUS SYSTEM: No focal deficit. DISCHARGE ADVICE AND MEDICATIONS: 1. Diet is cardiac. 2. Activity as tolerated. 3. Follow up with Dr. Aguilar in 2 to 3 days. 4. Tylenol 650 q.4 p.r.n. 5. Xanax 0.25 q.i.d. p.r.n. 6. Norvasc 5 mg p.o. daily. 7. Wellbutrin SR 150 mg p.o. daily. 8. Ceftin 500 mg p.o. b.i.d. 9. Fenofibrate 145 mg p.o. daily. 10. Lasix 40 mg p.o. daily. 11. Neurontin 300 mg p.o. b.i.d. 12. NovoLog 7 units t.i.d. 13. Lantus 30 units subcutaneously each morning. 14. Humalog per scale; Accu-Cheks before meals and at bedtime. Scale is 150 to 200, 2 units; 201 to 250, 4 units; 251 to 300, 6 units; 301 to 350, 8 units; 351 to 400, 10 units; more than 400, call. 15. Imdur ER 30 mg p.o. daily. 16. Claritin 10 mg p.o. daily. 17. Lopressor 25 mg p.o. daily. 18. Oxybutynin 15 mg p.o. b.i.d. 19. Protonix 40 mg p.o. b.i.d. 20. Prednisone taper: 40 mg daily for 3 days; 30 mg daily for 3 days; 20 mg daily for 3 days; 10 mg daily for 3 days; then discontinue. 21. Zocor 10 mg p.o. daily. 22. Effexor 37.5 mg at bedtime; 75 mg each morning. Once again, the patient will be discharged in stable condition with guarded prognosis.
== END 2016-10-28 18:20 | DRG 291 ==
LOC: EC 15:51 → EEVIPCON 18:20 → 6SEL 18:20 → 5MS5E 10-25 11:22
PROVIDERS: ADMIT Internal Medicine; ATTEND Internal Medicine
DX: I13.0 Hypertensive heart and chronic kidney disease with heart failure and stage 1 through stage 4 chronic kidney disease, or unspecified chronic kidney disease (principal); J96.21 Acute and chronic respiratory failure with hypoxia; J15.6 Pneumonia due to other Gram-negative bacteria; N17.9 Acute kidney failure, unspecified; I50.33 Acute on chronic diastolic (congestive) heart failure; J96.22 Acute and chronic respiratory failure with hypercapnia; J44.0 Chronic obstructive pulmonary disease with (acute) lower respiratory infection; J44.1 Chronic obstructive pulmonary disease with (acute) exacerbation; E66.2 Morbid (severe) obesity with alveolar hypoventilation; E11.22 Type 2 diabetes mellitus with diabetic chronic kidney disease; F03.90 Unspecified dementia, unspecified severity, without behavioral disturbance, psychotic disturbance, mood disturbance, and anxiety; E11.42 Type 2 diabetes mellitus with diabetic polyneuropathy; D53.9 Nutritional anemia, unspecified; D63.8 Anemia in other chronic diseases classified elsewhere; D50.9 Iron deficiency anemia, unspecified; E78.5 Hyperlipidemia, unspecified; E87.5 Hyperkalemia; F32.9 Major depressive disorder, single episode, unspecified; G47.33 Obstructive sleep apnea (adult) (pediatric); I25.10 Atherosclerotic heart disease of native coronary artery without angina pectoris; J98.4 Other disorders of lung; K21.9 Gastro-esophageal reflux disease without esophagitis; N18.9 Chronic kidney disease, unspecified; N30.90 Cystitis, unspecified without hematuria; T38.0X5A Adverse effect of glucocorticoids and synthetic analogues, initial encounter; W19.XXXA Unspecified fall, initial encounter; Y92.009 Unspecified place in unspecified non-institutional (private) residence as the place of occurrence of the external cause; Z53.20 Procedure and treatment not carried out because of patient's decision for unspecified reasons; Z68.38 Body mass index [BMI] 38.0-38.9, adult; Z77.22 Contact with and (suspected) exposure to environmental tobacco smoke (acute) (chronic); Z79.4 Long term (current) use of insulin; Z88.0 Allergy status to penicillin; Z91.14 Patient's other noncompliance with medication regimen; Z91.19 Patient's noncompliance with other medical treatment and regimen; Z79.899 Other long term (current) drug therapy; Z88.6 Allergy status to analgesic agent; Z88.1 Allergy status to other antibiotic agents; Z88.5 Allergy status to narcotic agent
CPT/HCPCS: 36415; 36600; 71010; 71020; 80048; 80053; 81001; 82550; 82553; 82805; 83036; 83735; 83880; 84484; 85025; 85379; 85610; 85730; 87086; 93005; 93306; 94640; 94660; 94760; 96374; 99285

== ENCOUNTER 2016-12-01 08:48 | Inpatient (IN) | payer MEDICARE, OTHER ==
[2016-12-01] MEDS ORDERED: SODIUM CHLORIDE 0.9% 1,000 ML IV ONE (08:57)
[2016-12-01] MEDS ORDERED: SODIUM CHLORIDE 0.9% 500 ML IV ONE (08:57)
[2016-12-01 09:28] LABS: Anisocytosis Moderate; Basophils # (A) 0.1 k/uL (0-0.2); Basophils % (A) 1 %; CH 22.2; CHCM 30.5; Eosinophils # (A) 0.5 k/uL (0-0.7); Eosinophils % (A) 5 %; HCT 37.5 % (34.0-46.0); HDW 3.17; HGB 11.8 gm/dL (11.4-16.0); Hypochromasia Marked; Luc # (Auto) 0.22; Luc % (Auto) 3; Lymphocytes # (A) 1.3 k/uL (1.0-4.8); Lymphocytes % (A) 15 %; MCHC 31.5 g/dL (31.0-37.0); MCV 73.1 fL (80.0-100.0); Mean Platelet Volume 7.7; Microcytosis Marked; Monocytes # (A) 0.4 k/uL (0-1.0); Monocytes % (A) 5 %; Neutrophils # (A) 6.4 k/uL (1.3-7.7); Neutrophils % (A) 72 %; RBC 5.13 m/uL (3.80-5.40); RDW 20.2 % (11.5-15.5); WBC 8.8 k/uL (3.8-10.6); WBC (Perox) 8.71
[2016-12-01 09:42] LABS: Calcium 8.9 mg/dL (8.4-10.2); Potassium 4.4 mmol/L (3.5-5.1); Total Bilirubin 0.3 mg/dL (0.2-1.3); Total Protein 6.3 g/dL (6.3-8.2)
[2016-12-01 09:53] LABS: Partial Thromboplastin Time 24.4 sec (22.0-30.0); Prothrombin Time 10.6 sec (9.0-12.0)
[2016-12-01 09:56] LABS: Creatine Kinase 98 U/L (30-135)
--- NOTE | 2016-12-01 09:59 | XR ---
EXAMINATION TYPE: XR chest 1V portable DATE OF EXAM: 12/01/2016 COMPARISON: Chest x-ray October 26, 2016 HISTORY: Altered mental status TECHNIQUE: Single AP portable frontal upright view of the chest is obtained. FINDINGS: Exam is suboptimal secondary to patient's large body habitus. Dextroconvex scoliosis is pre sent centered in the mid to lower thoracic spine. There is cardiomegaly with central vascular congest ion. Evaluation of left lung base is suboptimal, underlying infiltrate at this level is difficult to entirely exclude. IMPRESSION: Cardiomegaly with moderate central vascular congestion redemonstrated, suspect CHF exace rbation.
--- NOTE | 2016-12-01 10:07 | CT ---
EXAMINATION TYPE: CT brain kiersten wo con DATE OF EXAM: 12/01/2016 COMPARISON: NONE HISTORY: 75-year-old female fell out of bed CT DLP: Brain 1064.3 and Cervical 1118.8 mGycm Automated exposure control for dose reduction was used. Technique: Examination of the head was done in axial plane without intravenous contrast. Coronal and sagittal reconstructions performed. CT of the cervical spine was obtained in axial plane without intravenous injection of contrast mater ial. Coronal and sagittal reformatted images were obtained from the axial views for evaluation of f ractures, spinal alignment and canal. FINDINGS: Head: There is no evidence of acute intracranial hemorrhage, acute ischemic changes, mass, mass-effect, or extra-axial fluid collection. There is no effacement of cerebral sulci or basal subarachnoid cister ns. There is no hydrocephalus. There is no midline shift. Pozo-white matter distinction is preserv ed. Mild cerebral atrophy and mild patchy white matter hypodensity suggesting chronic small vessel ischem ic disease. Mild mucosal thickening within the ethmoid air cells. Mastoid air cells well pneumatized. Orbits and globes are intact. No calvarial fracture. Cervical spine: Degenerative changes at the right TMJ. The alignment of the cervical spine is normal on coronal and reformatted images. There is no cranial vertebral abnormality. Fracture of the cervical spine is not seen. Mild multilevel degenerative disc disease. Changes may result in mild narrowing of the spinal canal various levels particularly at C4- C5 secondary to disc osteophyte complex. Limited assessment of the spinal canal due to artifact from elevated patient shoulders. Incidentally, there is a 1.7 cm fluid attenuating lesion seen in the right paraspinal region at the T 1-T2 level just beyond the T1 neuroforamen, axial image 74 and coronal image 14. Sagittal and coronal reformatted images confirm above findings. COMBINED IMPRESSION: 1. No acute intracranial abnormality seen. Mild cerebral atrophy and changes of chronic small vessel ischemic disease. 2. No acute fracture or malalignment of the cervical spine. Mild to moderate multilevel spondylotic c hange. 3. A 1.7 cm fluid attenuating lesion in the right paraspinal region just beyond the T1-T2 neuroforame n. Some differential considerations include a cystic nerve sheath tumor and perineural cyst. Other et iologies not excluded at this time. Follow-up contrast enhanced MRI of the spine centered along the l ower cervical and upper thoracic spine can further evaluate.
[2016-12-01 10:08] LABS: Creatine Kinase MB 1.7 ng/mL (0.0-2.4); Troponin I <0.012 ng/mL (0.000-0.034)
--- NOTE | 2016-12-01 10:32 | ED ---
Altered Mental Status HPI - General Chief Complaint: Altered Mental Status Stated Complaint: Altered Mental Status Time Seen by Provider: 12/01/16 08:48 Source: EMS, RN notes reviewed, old records reviewed Mode of arrival: EMS Limitations: no limitations - History of Present Illness Initial Comments: This is a 75-year-old female who is brought in from half-way for evaluation of change in mental status. She apparently fell out of bed was found lying on the floor next rebound around 3:30 AM this morning patient remains awake and alert and conversant but she was difficult to arouse this morning. She was brought in for evaluation and was no apparent loss of function to her upper or lower extremities she did demonstrate a saturation rate in the high 80s which improved after 2 L of oxygen to 95 also she was noted to have a hypotensive episode with a 88 systolic blood pressure. No palpable tenderness per paramedics. She did demonstrate a abrasion over the lateral aspect of the left orbit. No reports of fevers chills nausea vomiting sweats or other symptoms MD Complaint: altered mental status, decreased responsiveness - Related Data Home Medications Medication Instructions Recorded Confirmed Fenofibrate Nanocrystallized 145 mg PO DAILY 11/03/15 12/01/16 [Fenofibrate] Gabapentin [Neurontin] 300 mg PO BID 11/03/15 12/01/16 Loratadine [Claritin] 10 mg PO DAILY 11/03/15 12/01/16 Metoprolol Tartrate [Lopressor] 25 mg PO DAILY 11/03/15 12/01/16 Oxybutynin Chloride [Oxybutynin 15 mg PO BID 11/03/15 12/01/16 Chloride ER] Simvastatin [Zocor] 10 mg PO DAILY 11/03/15 12/01/16 amLODIPine [Norvasc] 5 mg PO DAILY 11/03/15 12/01/16 buPROPion SR [Wellbutrin SR] 150 mg PO DAILY 11/03/15 12/01/16 Isosorbide Mononitrate ER [Imdur] 30 mg PO DAILY 10/21/16 12/01/16 Albuterol Sulfate [Accuneb] 1.25 mg INHALATION RT-Q4H PRN 12/01/16 12/01/16 Albuterol Sulfate [Accuneb] 1.25 mg INHALATION RT-QID 12/01/16 12/01/16 Amino Acids/Protein Hydrolys 30 ml PO BID 12/01/16 12/01/16 [Pro-Stat Supplement] Ferrous Sulfate [Feosol] 325 mg PO DAILY 12/01/16 12/01/16 Insulin Aspart [NovoLOG] 8 unit SQ AC-TID 12/01/16 12/01/16 Insulin Aspart [NovoLOG] See Protocol SQ AC-TID 12/01/16 12/01/16 Insulin Glargine [Lantus] 40 unit SQ DAILY@199912/01/16 12/01/16 Multivitamins, Thera [Multivitamin 1 tab PO DAILY 12/01/16 12/01/16 (formulary)] Nystatin 100,000 Unit/gm Powd 1 applic TOPICAL BID 12/01/16 12/01/16 [Mycostatin Powder] Omeprazole 20 mg PO BID 12/01/16 12/01/16 Venlafaxine HCl ER [Effexor Xr] 37.5 mg PO HS 12/01/16 12/01/16 Venlafaxine HCl ER [Effexor Xr] 75 mg PO DAILY 12/01/16 12/01/16 Previous Rx's Medication Instructions Recorded ALPRAZolam [Xanax] 0.25 mg PO QID PRN #20 tab 10/28/16 Acetaminophen Tab [Tylenol] 650 mg PO Q4HR PRN tab 10/28/16 Furosemide [Lasix] 40 mg PO DAILY #30 tablet 10/28/16 Allergies Allergy/AdvReac Type Severity Reaction Status Date / Time morphine AdvReac Unknown Verified 12/01/16 08:50 NSAIDS (Non-Steroidal AdvReac Unknown Verified 12/01/16 08:50 Anti-Inflamma Penicillins AdvReac Abdominal Verified 12/01/16 08:50 Pain Quinazolinones AdvReac Unknown Verified 12/01/16 08:50 Quinolones AdvReac Unknown Verified 12/01/16 08:50 salicylates [salicylate] AdvReac Unknown Verified 12/01/16 08:50 Review of Systems ROS Statement: Those systems with pertinent positive or pertinent negative responses have been documented in the HPI. ROS Other: All systems not noted in ROS Statement are negative. Limitations: ROS unobtainable due to patients medical condition Past Medical History Past Medical History: Coronary Artery Disease (CAD), Dementia, Diabetes Mellitus , GERD/Reflux, Hyperlipidemia, Hypertension History of Any Multi-Drug Resistant Organisms: None Reported, Unobtainable Past Surgical History: Unable to Obtain Past Psychological History: No Psychological Hx Reported, Unable to Obtain Smoking Status: Never smoker Past Alcohol Use History: None Reported Past Drug Use History: None Reported - Past Family History Sister(s) Family Medical History: Cancer, Diabetes Mellitus Father Family Medical History: No Reported History, Unable to Obtain Additional Family Medical History / Comment(s): pt unsure Mother Family Medical History: No Reported History, Unable to Obtain Additional Family Medical History / Comment(s): pt unsure General Exam - General Exam Comments Initial Comments: This is a well-developed morbidly obese female Limitations: no limitations General appearance: lethargic Head exam: Present: normocephalic, other (Abrasion seen to the lateral canthus of the left orbit no active bleeding no formed by no step-off or crepitation no suture repair indicated.) ENT exam: Present: mucous membranes dry Neck exam: Present: normal inspection. Absent: tenderness, lymphadenopathy Respiratory exam: Present: decreased breath sounds Cardiovascular Exam: Present: normal rhythm, bradycardia, normal heart sounds. Absent: systolic murmur, diastolic murmur, rubs, gallop, clicks GI/Abdominal exam: Present: soft, other (Obese abdomen). Absent: tenderness, pulsatile mass, hernia Rectal exam: Present: deferred Extremities exam: Present: normal inspection, full ROM, normal capillary refill Back exam: Present: normal inspection Neurological exam: Present: altered, CN II-XII intact, reflexes normal Psychiatric exam: Present: other (Unable to fully evaluate) Skin exam: Present: warm, dry, normal color. Absent: intact Course Vital Signs 12/01/16 12/01/16 12/01/16 08:52 09:30 10:10 Temperature 96.7 F L Pulse Rate 16 L 67 71 Respiratory 69 H 18 18 Rate Blood Pressure 104/50 93/52 112/50 O2 Sat by Pulse 88 L 95 95 Oximetry 12/01/16 12/01/16 12/01/16 12:32 13:15 13:54 Temperature 97.4 F L Pulse Rate 87 86 92 Respiratory 15 18 18 Rate Blood Pressure 129/60 157/71 132/68 O2 Sat by Pulse 92 L 95 94 L Oximetry Medical Decision Making - Medical Decision Making Patient is more responsive after IV hydration. The urine has come back and show evidence of urinary tract infection. Patient be placed on antibiotics and admitted for evaluation of encephalopathy. - Lab Data Result diagrams: 12/01/16 09:10 12/01/16 09:10 Lab Results 12/01/16 12/01/16 12/01/16 Range/Units 09:10 09:10 09:10 WBC 8.8 (3.8-10.6) k/uL RBC 5.13 (3.80-5.40) m/uL Hgb 11.8 (11.4-16.0) gm/dL Hct 37.5 (34.0-46.0) % MCV 73.1 L (80.0-100.0) fL MCH 23.0 L (25.0-35.0) pg MCHC 31.5 (31.0-37.0) g/dL RDW 20.2 H (11.5-15.5) % Plt Count 383 (150-450) k/uL Neutrophils % 72 % Lymphocytes % 15 % Monocytes % 5 % Eosinophils % 5 % Basophils % 1 % Neutrophils # 6.4 (1.3-7.7) k/uL Lymphocytes # 1.3 (1.0-4.8) k/uL Monocytes # 0.4 (0-1.0) k/uL Eosinophils # 0.5 (0-0.7) k/uL Basophils # 0.1 (0-0.2) k/uL Hypochromasia Marked Anisocytosis Moderate Microcytosis Marked PT (9.0-12.0) sec INR (<1.1) APTT (22.0-30.0) sec Sodium (137-145) mmol/L Potassium (3.5-5.1) mmol/L Chloride (98-107) mmol/L Carbon Dioxide (22-30) mmol/L Anion Gap mmol/L BUN (7-17) mg/dL Creatinine (0.52-1.04) mg/dL Est GFR (MDRD) Af Amer (>60 ml/min/1.73 sqM) Est GFR (MDRD) Non-Af (>60 ml/min/1.73 sqM) Glucose (74-99) mg/dL Calcium (8.4-10.2) mg/dL Total Bilirubin (0.2-1.3) mg/dL AST (14-36) U/L ALT (9-52) U/L Alkaline Phosphatase (38-126) U/L Ammonia <9 (<30) umol/L Total Creatine Kinase 98 (30-135) U/L CK-MB (CK-2) 1.7 (0.0-2.4) ng/mL CK-MB (CK-2) Rel Index 1.7 Troponin I <0.012 (0.000-0.034) ng/mL Total Protein (6.3-8.2) g/dL Albumin (3.5-5.0) g/dL Urine Color Urine Appearance (Clear) Urine pH (5.0-8.0) Ur Specific [place] (1.001-1.035) Urine Protein (Negative) Urine Glucose (UA) (Negative) Urine Ketones (Negative) Urine Blood (Negative) Urine Nitrite (Negative) Urine Bilirubin (Negative) Urine Urobilinogen (<2.0) mg/dL Ur Leukocyte Esterase (Negative) Urine RBC (0-5) /hpf Urine WBC (0-5) /hpf Urine WBC Clumps (None) /hpf Urine Bacteria (None) /hpf Urine Mucus (None) /hpf Urine Opiates Screen (NotDetected) Ur Oxycodone Screen (NotDetected) Urine Methadone Screen (NotDetected) Ur Propoxyphene Screen (NotDetected) Ur Barbiturates Screen (NotDetected) U Tricyclic Antidepress (NotDetected) Ur Phencyclidine Scrn (NotDetected) Ur Amphetamines Screen (NotDetected) U Methamphetamines Scrn (NotDetected) U Benzodiazepines Scrn (NotDetected) Urine Cocaine Screen (NotDetected) U Marijuana (THC) Screen (NotDetected) 12/01/16 12/01/16 12/01/16 Range/Units 09:10 09:10 11:30 WBC (3.8-10.6) k/uL RBC (3.80-5.40) m/uL Hgb (11.4-16.0) gm/dL Hct (34.0-46.0) % MCV (80.0-100.0) fL MCH (25.0-35.0) pg MCHC (31.0-37.0) g/dL RDW (11.5-15.5) % Plt Count (150-450) k/uL Neutrophils % % Lymphocytes % % Monocytes % % Eosinophils % % Basophils % % Neutrophils # (1.3-7.7) k/uL Lymphocytes # (1.0-4.8) k/uL Monocytes # (0-1.0) k/uL Eosinophils # (0-0.7) k/uL Basophils # (0-0.2) k/uL Hypochromasia Anisocytosis Microcytosis PT 10.6 (9.0-12.0) sec INR 1.0 (<1.1) APTT 24.4 (22.0-30.0) sec Sodium 141 (137-145) mmol/L Potassium 4.4 (3.5-5.1) mmol/L Chloride 100 (98-107) mmol/L Carbon Dioxide 30 (22-30) mmol/L Anion Gap 11 mmol/L BUN 42 H (7-17) mg/dL Creatinine 1.35 H (0.52-1.04) mg/dL Est GFR (MDRD) Af Amer 47 (>60 ml/min/1.73 sqM) Est GFR (MDRD) Non-Af 38 (>60 ml/min/1.73 sqM) Glucose 185 H (74-99) mg/dL Calcium 8.9 (8.4-10.2) mg/dL Total Bilirubin 0.3 (0.2-1.3) mg/dL AST 18 (14-36) U/L ALT 22 (9-52) U/L Alkaline Phosphatase 82 (38-126) U/L Ammonia (<30) umol/L Total Creatine Kinase (30-135) U/L CK-MB (CK-2) (0.0-2.4) ng/mL CK-MB (CK-2) Rel Index Troponin I (0.000-0.034) ng/mL Total Protein 6.3 (6.3-8.2) g/dL Albumin 3.5 (3.5-5.0) g/dL Urine Color Urine Appearance (Clear) Urine pH (5.0-8.0) Ur Specific [place] (1.001-1.035) Urine Protein (Negative) Urine Glucose (UA) (Negative) Urine Ketones (Negative) Urine Blood (Negative) Urine Nitrite (Negative) Urine Bilirubin (Negative) Urine Urobilinogen (<2.0) mg/dL Ur Leukocyte Esterase (Negative) Urine RBC (0-5) /hpf Urine WBC (0-5) /hpf Urine WBC Clumps (None) /hpf Urine Bacteria (None) /hpf Urine Mucus (None) /hpf Urine Opiates Screen Not Detected (NotDetected) Ur Oxycodone Screen Not Detected (NotDetected) Urine Methadone Screen Not Detected (NotDetected) Ur Propoxyphene Screen Not Detected (NotDetected) Ur Barbiturates Screen Not Detected (NotDetected) U Tricyclic Antidepress Not Detected (NotDetected) Ur Phencyclidine Scrn Not Detected (NotDetected) Ur Amphetamines Screen Not Detected (NotDetected) U Methamphetamines Scrn Not Detected (NotDetected) U Benzodiazepines Scrn Not Detected (NotDetected) Urine Cocaine Screen Not Detected (NotDetected) U Marijuana (THC) Screen Not Detected (NotDetected) 12/01/16 Range/Units 11:30 WBC (3.8-10.6) k/uL RBC (3.80-5.40) m/uL Hgb (11.4-16.0) gm/dL Hct (34.0-46.0) % MCV (80.0-100.0) fL MCH (25.0-35.0) pg MCHC (31.0-37.0) g/dL RDW (11.5-15.5) % Plt Count (150-450) k/uL Neutrophils % % Lymphocytes % % Monocytes % % Eosinophils % % Basophils % % Neutrophils # (1.3-7.7) k/uL Lymphocytes # (1.0-4.8) k/uL Monocytes # (0-1.0) k/uL Eosinophils # (0-0.7) k/uL Basophils # (0-0.2) k/uL Hypochromasia Anisocytosis Microcytosis PT (9.0-12.0) sec INR (<1.1) APTT (22.0-30.0) sec Sodium (137-145) mmol/L Potassium (3.5-5.1) mmol/L Chloride (98-107) mmol/L Carbon Dioxide (22-30) mmol/L Anion Gap mmol/L BUN (7-17) mg/dL Creatinine (0.52-1.04) mg/dL Est GFR (MDRD) Af Amer (>60 ml/min/1.73 sqM) Est GFR (MDRD) Non-Af (>60 ml/min/1.73 sqM) Glucose (74-99) mg/dL Calcium (8.4-10.2) mg/dL Total Bilirubin (0.2-1.3) mg/dL AST (14-36) U/L ALT (9-52) U/L Alkaline Phosphatase (38-126) U/L Ammonia (<30) umol/L Total Creatine Kinase (30-135) U/L CK-MB (CK-2) (0.0-2.4) ng/mL CK-MB (CK-2) Rel Index Troponin I (0.000-0.034) ng/mL Total Protein (6.3-8.2) g/dL Albumin (3.5-5.0) g/dL Urine Color Light Yellow Urine Appearance Cloudy H (Clear) Urine pH 5.5 (5.0-8.0) Ur Specific [place] 1.011 (1.001-1.035) Urine Protein 1+ H (Negative) Urine Glucose (UA) 1+ H (Negative) Urine Ketones Negative (Negative) Urine Blood Small H (Negative) Urine Nitrite Negative (Negative) Urine Bilirubin Negative (Negative) Urine Urobilinogen <2.0 (<2.0) mg/dL Ur Leukocyte Esterase Large H (Negative) Urine RBC 8 H (0-5) /hpf Urine WBC >182 H (0-5) /hpf Urine WBC Clumps Few H (None) /hpf Urine Bacteria Few H (None) /hpf Urine Mucus Rare H (None) /hpf Urine Opiates Screen (NotDetected) Ur Oxycodone Screen (NotDetected) Urine Methadone Screen (NotDetected) Ur Propoxyphene Screen (NotDetected) Ur Barbiturates Screen (NotDetected) U Tricyclic Antidepress (NotDetected) Ur Phencyclidine Scrn (NotDetected) Ur Amphetamines Screen (NotDetected) U Methamphetamines Scrn (NotDetected) U Benzodiazepines Scrn (NotDetected) Urine Cocaine Screen (NotDetected) U Marijuana (THC) Screen (NotDetected) - EKG Data -: EKG Interpreted by Me EKG shows normal: sinus rhythm (Sinus rhythm rate is 70. Interval 148 QRS duration 86 daily since QTC of 402/434 right word axis and specific ST configuration) - Radiology Data Radiology results: report reviewed (I did review the imaging and reports no definite acute findings.), image reviewed Disposition Clinical Impression: Delirium due to general medical condition, Encephalopathy, Urinary tract infection, Facial abrasion Disposition: ADMITTED IP TO THIS HOSP Condition: Stable Referrals: Jeffrey Aguilar DO [Primary Care Provider] - 1-2 days
[2016-12-01 11:48] LABS: Appearance,Urine Cloudy (Clear); Bacteria,Urine Few /hpf; Bilirubin,Urine Negative (Negative); Glucose,Urine (UA) 1+ (Negative); Ketones,Urine Negative (Negative); Leukocyte Esterase,Urine Large (Negative); Mucus,Urine Rare /hpf; Nitrite,Urine Negative (Negative); PH, Urine 5.5 (5.0-8.0); Particle Count 2943; Protein,Urine 1+ (Negative); RBC,Urine 8 /hpf (0-5); Specific Gravity,Urine 1.011 (1.001-1.035); UA Billing (MACRO vs. MICRO) MICRO; Urobilinogen,Urine <2.0 mg/dL (<2.0); WBC,Urine >182 /hpf (0-5)
[2016-12-01] MEDS ORDERED: ACETAMINOPHEN TAB 325 MG TAB PO PRN ×2 (14:21→14:23)
[2016-12-01] MEDS ORDERED: NALOXONE 0.4 MG/ML 1 ML VIAL IV PRN (14:21)
[2016-12-01] MEDS ORDERED: ALBUTEROL NEBULIZED 2.5 MG/3 ML INHALATION PRN (14:23)
[2016-12-01] MEDS ORDERED: ALPRAZolam 0.25 MG TAB PO PRN (14:23)
[2016-12-01] MEDS ORDERED: ALBUTEROL NEBULIZED 2.5 MG/3 ML INHALATION SCH (16:00)
[2016-12-01] MEDS: SODIUM CHLORIDE 0.9% 1,000 ML IV SCH ×2 (16:53→21:18)
[2016-12-01 17:29] LABS: Glucose,Whole Blood 114 mg/dL (75-99)
[2016-12-01] MEDS: INSULIN LISPRO (humaLOG) 300 UNIT/3 ML VIAL SQ SCH (18:12)
[2016-12-01] MEDS: PANTOPRAZOLE 40 MG TABLET PO SCH (18:13)
[2016-12-01] MEDS ORDERED: INSULIN GLARGINE 100 UNIT/ML 10 ML VIAL SQ SCH (20:00)
[2016-12-01 20:55] LABS: Glucose,Whole Blood 153 mg/dL (75-99)
[2016-12-01] MEDS ORDERED: NON-FORMULARY DRUG (Amino Acids/Protein Hydrolys [Pro-Stat Supplement] 30 ML) PO SCH (21:00)
[2016-12-01] MEDS: GABAPENTIN 300 MG CAP PO SCH ×2 (21:18→21:33)
[2016-12-01] MEDS: VENLAFAXINE HCL ER 37.5 MG CAP PO SCH ×2 (21:18→21:34)
[2016-12-01] MEDS: NYSTATIN 100,000 UNIT/GM POWD 15 GM TOPICAL SCH ×2 (21:18→21:33)
[2016-12-01] MEDS: OXYBUTYNIN 15 MG TAB.ER.24 PO SCH ×2 (21:18→21:33)
--- NOTE | 2016-12-01 21:59 | P.HPIM ---
<Arabella Vasquez - Last Filed: 12/01/16 21:23> History of Present Illness H&P Date: 12/01/16 Chief Complaint: Back pain This is a 75-year-old female with chronic stable medical conditions of coronary artery disease, diabetes mellitus, GERD, hyperlipidemia, and hypertension who lives in a long-term and was brought to the emergency department due to mental status changes. Patient sustained a fall and was found lying on the floor next to her bed about 3:30 AM today she was able to follow simple commands however would drift right back off to sleep. No functional abnormalities of her upper or lower extremities. Patient is not a very good historian, was able to answer some simple questions for me however would drift right back off begin to mumble to losing track of what the question was. Urinalysis reveals evidence of urinary tract infection antibiotics initiated. Review of Systems GEN.: [None] EYES: [None] HEENT: [None] NECK: [None] RESPIRATORY: [None] CARDIOVASCULAR: [None] GASTROINTESTINAL: [None] GENITOURINARY: [None] MUSCULOSKELETAL: [Back and joint pain] LYMPHATICS: [None] HEMATOLOGICAL: [None] PSYCHIATRY: [None] NEUROLOGICAL: [None] Patient was not a good historian and review of systems was difficult to obtain. ROS unobtainable: due to mental status Past Medical History Past Medical History: Coronary Artery Disease (CAD), Heart Failure, COPD, Dementia, Diabetes Mellitus, GERD/Reflux, Hyperlipidemia, Hypertension Additional Past Medical History / Comment(s): PT RECENTLY ADMITTED TO [facility] ON WITH EXACERBATION COPD/CHF/ACUTE HYPOXIC RESPIRATORY FAILURE. OTHER HX ; IDDM TYPE II, DIABETIC PERIPHERAL NEUROPATHY, SEVERE RESTRICTIVE LUNG DISEASE , POSSIBLE AKHIL, CHRONIC RENAL FAILURE, CHRONIC ANEMIA, UTIS, WHEELCHAIR BOUND. History of Any Multi-Drug Resistant Organisms: None Reported Past Surgical History: Unable to Obtain Past Anesthesia/Blood Transfusion Reactions: Unable to Obtain Smoking Status: Never smoker - Past Family History Sister(s) Family Medical History: Cancer, Diabetes Mellitus Father Family Medical History: Unable to Obtain Additional Family Medical History / Comment(s): pt unsure Mother Family Medical History: Unable to Obtain Additional Family Medical History / Comment(s): pt unsure Medications and Allergies Home Medications Medication Instructions Recorded Confirmed Type Fenofibrate Nanocrystallized 145 mg PO DAILY 11/03/15 12/01/16 History [Fenofibrate] Gabapentin [Neurontin] 300 mg PO BID 11/03/15 12/01/16 History Loratadine [Claritin] 10 mg PO DAILY 11/03/15 12/01/16 History Metoprolol Tartrate [Lopressor] 25 mg PO DAILY 11/03/15 12/01/16 History Oxybutynin Chloride [Oxybutynin 15 mg PO BID 11/03/15 12/01/16 History Chloride ER] Simvastatin [Zocor] 10 mg PO DAILY 11/03/15 12/01/16 History amLODIPine [Norvasc] 5 mg PO DAILY 11/03/15 12/01/16 History buPROPion SR [Wellbutrin SR] 150 mg PO DAILY 11/03/15 12/01/16 History Isosorbide Mononitrate ER [Imdur] 30 mg PO DAILY 10/21/16 12/01/16 History Albuterol Sulfate [Accuneb] 1.25 mg INHALATION RT-Q4H PRN 12/01/16 12/01/16 History Albuterol Sulfate [Accuneb] 1.25 mg INHALATION RT-QID 12/01/16 12/01/16 History Amino Acids/Protein Hydrolys 30 ml PO BID 12/01/16 12/01/16 History [Pro-Stat Supplement] Ferrous Sulfate [Feosol] 325 mg PO DAILY 12/01/16 12/01/16 History Insulin Aspart [NovoLOG] 8 unit SQ AC-TID 12/01/16 12/01/16 History Insulin Aspart [NovoLOG] See Protocol SQ AC-TID 12/01/16 12/01/16 History Insulin Glargine [Lantus] 40 unit SQ DAILY@199912/01/16 12/01/16 History Multivitamins, Thera [Multivitamin 1 tab PO DAILY 12/01/16 12/01/16 History (formulary)] Nystatin 100,000 Unit/gm Powd 1 applic TOPICAL BID 12/01/16 12/01/16 History [Mycostatin Powder] Omeprazole 20 mg PO BID 12/01/16 12/01/16 History Venlafaxine HCl ER [Effexor Xr] 37.5 mg PO HS 12/01/16 12/01/16 History Venlafaxine HCl ER [Effexor Xr] 75 mg PO DAILY 12/01/16 12/01/16 History Allergies Allergy/AdvReac Type Severity Reaction Status Date / Time morphine AdvReac Unknown Verified 12/01/16 08:50 NSAIDS (Non-Steroidal AdvReac Unknown Verified 12/01/16 08:50 Anti-Inflamma Penicillins AdvReac Abdominal Verified 12/01/16 08:50 Pain Quinazolinones AdvReac Unknown Verified 12/01/16 08:50 Quinolones AdvReac Unknown Verified 12/01/16 08:50 salicylates [salicylate] AdvReac Unknown Verified 12/01/16 08:50 Physical Exam Vitals: Vital Signs Temp Pulse Pulse Resp BP BP Pulse Ox 12/01/16 15:38 97.9 F 83 19 127/67 93 L 12/01/16 14:28 98.0 F 79 18 149/65 95 12/01/16 14:21 93 L 12/01/16 13:54 92 18 132/68 94 L 12/01/16 13:15 86 18 157/71 95 12/01/16 12:32 97.4 F L 87 15 129/60 92 L 12/01/16 10:10 71 18 112/50 95 12/01/16 09:30 67 18 93/52 95 12/01/16 08:52 96.7 F L 16 L 69 H 104/50 88 L Intake and Output 12/01/16 12/01/16 12/01/16 06:59 14:59 22:59 Other: Voiding Method Diaper Weight 90.718 kg Patient Weight 12/02/16 06:59 Weight 90.718 kg VITAL SIGNS: [. Temperature 98.0, pulse 79, blood pressure 149/65, respirations 18, oxygen saturation 95% on 2 L nasal cannula. BMI noted] GENERAL: Obese, lying in bed, somewhat uncomfortable appearing]. EYES: [Pupils equal. Conjunctiva maryam]l. HEENT: [External appearance of nose and ears normal, oral cavity grossly normal] . NECK: [JVD not raised; masses not palpable]. HEART: [First and second heart sounds are normal; no edema]. LUNGS:[ Respiratory rate normal; clear to auscultation]. ABDOMEN: [Soft, nontender, liver spleen not palpable, no masses palpable]. LYMPHATICS: [No lymph nodes palpable in the axilla and neck]. PSYCH: [Alert and oriented x2; patient is not able to stay awake lethargic yet arousable l. NEUROLOGICAL: [Cranial nerves grossly intact; no facial asymmetry, power and sensation grossly intact, no urinary symptoms]. MUSCULOSKELETAL: Tenderness to the right and left proximal phalangeal joint on first and second digits and thumb. Tenderness to lumbar and sacral spine on palpation. Patient is able to move her legs, with full range of motion. Results Results: Head and cervical spine CT: No acute intracranial hemorrhage acute ischemic changes mass or mass effect or extra-axial fluid collection. No acute fracture or malalignment of the spine, mild to moderate multiple multilevel spondylitic changes 1.7 cm fluid attenuating lesion in the right paraspinal region just be on the T1-T2 neural foramen, suggest MRI follow-up CBC & Chem 7: 12/01/16 09:10 12/01/16 09:10 Labs: Abnormal Lab Results - Last 24 Hours (Table) 12/01/16 12/01/16 12/01/16 Range/Units 09:10 09:10 09:10 MCV 73.1 L (80.0-100.0) fL MCH 23.0 L (25.0-35.0) pg RDW 20.2 H (11.5-15.5) % BUN 42 H (7-17) mg/dL Creatinine 1.35 H (0.52-1.04) mg/dL Glucose 185 H (74-99) mg/dL POC Glucose (mg/dL) (75-99) mg/dL Hemoglobin A1c 10.0 H (4.2-6.1) % Urine Appearance (Clear) Urine Protein (Negative) Urine Glucose (UA) (Negative) Urine Blood (Negative) Ur Leukocyte Esterase (Negative) Urine RBC (0-5) /hpf Urine WBC (0-5) /hpf Urine WBC Clumps (None) /hpf Urine Bacteria (None) /hpf Urine Mucus (None) /hpf 12/01/16 12/01/16 12/01/16 Range/Units 11:30 16:54 20:41 MCV (80.0-100.0) fL MCH (25.0-35.0) pg RDW (11.5-15.5) % BUN (7-17) mg/dL Creatinine (0.52-1.04) mg/dL Glucose (74-99) mg/dL POC Glucose (mg/dL) 114 H 153 H (75-99) mg/dL Hemoglobin A1c (4.2-6.1) % Urine Appearance Cloudy H (Clear) Urine Protein 1+ H (Negative) Urine Glucose (UA) 1+ H (Negative) Urine Blood Small H (Negative) Ur Leukocyte Esterase Large H (Negative) Urine RBC 8 H (0-5) /hpf Urine WBC >182 H (0-5) /hpf Urine WBC Clumps Few H (None) /hpf Urine Bacteria Few H (None) /hpf Urine Mucus Rare H (None) /hpf Thrombosis Risk Factor Assmnt - Choose All That Apply Any of the Below Risk Factors Present?: Yes Each Factor Represents 1 point: Abnormal pulmonary function (COPD), Medical pt on bed rest, Obesity (BMI >25), Serious lung disease incl. pneumonia (< 1month) Other Risk Factors: Yes Each Risk Factor Represents 2 Points: Age 61-74 years Other congenital or acquired thrombophilia - If yes, enter type in comment: No Thrombosis Risk Factor Assessment Total Risk Factor Score: 6 Thrombosis Risk Factor Assessment Level: High Risk Assessment and Plan Plan: ASSESSMENT: -Acute urinary tract infection the patient known to have chronic UTIs -Acute mental status changes likely secondary to urinary tract infection or metabolic encephalopathy -Coronary artery disease due to diabetic atherosclerosis -Diabetes mellitus type 2, chronically on insulin -Osteoarthritis of multiple joints, bilateral -Medical debility, patient is wheelchair bound at baseline -Diabetic peripheral neuropathy -Chronic obstructive pulmonary disease in a patient -Gastroesophageal reflux disease -Hyperlipidemia -Essential hypertension PLAN: IV ceftriaxone initiated, home medications reordered, any medications known to cause delirium have been held. We'll consult orthopedics for patient's back pain. We will continue to follow closely, discussed plan of care with patient however patient was unable to maintain wakefulness. <Don Alvarez - Last Filed: 12/01/16 22:36> Physical Exam Vitals: Vital Signs Temp Pulse Pulse Resp BP BP Pulse Ox 12/01/16 15:38 97.9 F 83 19 127/67 93 L 12/01/16 14:28 98.0 F 79 18 149/65 95 12/01/16 14:21 93 L 12/01/16 13:54 92 18 132/68 94 L 12/01/16 13:15 86 18 157/71 95 12/01/16 12:32 97.4 F L 87 15 129/60 92 L 12/01/16 10:10 71 18 112/50 95 12/01/16 09:30 67 18 93/52 95 12/01/16 08:52 96.7 F L 16 L 69 H 104/50 88 L Intake and Output 12/01/16 12/01/16 12/01/16 06:59 14:59 22:59 Other: Voiding Method Diaper Weight 90.718 kg Patient Weight 12/02/16 06:59 Weight 90.718 kg Results CBC & Chem 7: 12/01/16 09:10 12/01/16 09:10 Labs: Abnormal Lab Results - Last 24 Hours (Table) 12/01/16 12/01/16 12/01/16 Range/Units 09:10 09:10 09:10 MCV 73.1 L (80.0-100.0) fL MCH 23.0 L (25.0-35.0) pg RDW 20.2 H (11.5-15.5) % BUN 42 H (7-17) mg/dL Creatinine 1.35 H (0.52-1.04) mg/dL Glucose 185 H (74-99) mg/dL POC Glucose (mg/dL) (75-99) mg/dL Hemoglobin A1c 10.0 H (4.2-6.1) % Urine Appearance (Clear) Urine Protein (Negative) Urine Glucose (UA) (Negative) Urine Blood (Negative) Ur Leukocyte Esterase (Negative) Urine RBC (0-5) /hpf Urine WBC (0-5) /hpf Urine WBC Clumps (None) /hpf Urine Bacteria (None) /hpf Urine Mucus (None) /hpf 12/01/16 12/01/16 12/01/16 Range/Units 11:30 16:54 20:41 MCV (80.0-100.0) fL MCH (25.0-35.0) pg RDW (11.5-15.5) % BUN (7-17) mg/dL Creatinine (0.52-1.04) mg/dL Glucose (74-99) mg/dL POC Glucose (mg/dL) 114 H 153 H (75-99) mg/dL Hemoglobin A1c (4.2-6.1) % Urine Appearance Cloudy H (Clear) Urine Protein 1+ H (Negative) Urine Glucose (UA) 1+ H (Negative) Urine Blood Small H (Negative) Ur Leukocyte Esterase Large H (Negative) Urine RBC 8 H (0-5) /hpf Urine WBC >182 H (0-5) /hpf Urine WBC Clumps Few H (None) /hpf Urine Bacteria Few H (None) /hpf Urine Mucus Rare H (None) /hpf Assessment and Plan Plan: Date of service 12/01/2016 Attending note: This patient is seen and examined by me today. I reviewed the H&P off my nurse practitioner Mrs. Vasquez.. Discussed and additional finding as below Presenting complaint: Fall Interval history: This is a patient resident of long-term with multiple medical problems found on the floor. In early hours of the morning. Patient had no focal findings but are pulse ox was initially found to be in the 80s given improved after 2 L oxygen. Also one of her low blood pressure down to 80 systolic. Patient difficult to get history from. Keep since she was to go back home sometimes though agitated. Past medical history: COPD, CHF, diabetes with peripheral neuropathy, hypertension, hyperlipidemia, depression, chronic kidney disease, wheelchair bound, restrictive lung disease next On examination Temperature 96.7, pulse 69, blood pressure 10 4 x 6 50, pulse of 80% room air Obese BMI 35.4 laying in bed lethargic but arousable and gets agitated easily neck is short and thick JVD unable to assess the extent sounds cardio vascular heart sounds muffled minimal edema psych she does answer questions but often agitated extremity is moving all 4 limbs Assessment: -Acute UTI possibly causing acute delirium present on admission -Obesity BMI 35.4 -COPD Chronic congestive heart failure EF not known -Restrictive lung disease -Diabetes as well as type II with peripheral neuropathy -Essential hypertension -Hyperlipidemia -Depression not otherwise specified -Chronic kidney disease stage III probably from diabetic nephropathy and hypertensive nephrosclerosis -Medical debility patient's been much wheelchair bound Plan: Patient started on ceftriaxone. Home medications are resumed. Care was discussed with the patient
[2016-12-02 07:18] LABS: Glucose,Whole Blood 104 mg/dL (75-99)
[2016-12-02 07:30] VITALS: BP 131/58; PULSE 82; RESP 18; TEMP 97.8
[2016-12-02] MEDS: INSULIN LISPRO (humaLOG) 300 UNIT/3 ML VIAL SQ SCH ×2 (08:21→12:53)
[2016-12-02] MEDS ORDERED: LORATADINE 10 MG TAB PO SCH (09:00)
[2016-12-02] MEDS ORDERED: ATORVASTATIN 10 MG TAB PO SCH (09:00)
[2016-12-02] MEDS ORDERED: ENOXAPARIN 40 MG/0.4 ML SYRINGE SQ SCH (09:00)
[2016-12-02] MEDS ORDERED: FERROUS SULFATE 325 MG TAB PO SCH (09:00)
[2016-12-02] MEDS ORDERED: FENOFIBRATE 160 MG TAB PO SCH (09:00)
[2016-12-02] MEDS ORDERED: VENLAFAXINE HCL ER 75 MG CAP PO SCH (09:00)
[2016-12-02] MEDS ORDERED: buPROPion SR 150 MG TABLET.ER PO SCH (09:00)
[2016-12-02] MEDS ORDERED: ISOSORBIDE MONONITRATE ER 30 MG TAB.ER.24H PO SCH (09:00)
[2016-12-02] MEDS ORDERED: FUROSEMIDE 40 MG TAB PO SCH (09:00)
[2016-12-02] MEDS ORDERED: amLODIPine 5 MG TAB PO SCH (09:00)
[2016-12-02] MEDS ORDERED: METOPROLOL TARTRATE 25 MG TAB PO SCH (09:00)
[2016-12-02] MEDS: GABAPENTIN 300 MG CAP PO SCH (09:19)
[2016-12-02] MEDS: OXYBUTYNIN 15 MG TAB.ER.24 PO SCH (09:20)
[2016-12-02] MEDS: PANTOPRAZOLE 40 MG TABLET PO SCH (09:20)
[2016-12-02] MEDS: NYSTATIN 100,000 UNIT/GM POWD 15 GM TOPICAL SCH (09:38)
[2016-12-02 11:43] LABS: Glucose,Whole Blood 183 mg/dL (75-99)
[2016-12-02] MEDS ORDERED: MULTIVITAMINS, THERA 1 EACH TAB PO SCH (12:00)
[2016-12-02 12:04] VITALS: BMI 35.4
[2016-12-02] MEDS: SODIUM CHLORIDE 0.9% 1,000 ML IV SCH (12:54)
[2016-12-02] MEDS ORDERED: ALBUTEROL NEBULIZED 2.5 MG/3 ML INHALATION SCH ×2 (13:03→16:00)
[2016-12-02] MEDS ORDERED: ALBUTEROL NEBULIZED 2.5 MG/3 ML INHALATION PRN (13:03)
--- NOTE | 2016-12-02 15:27 | P.DS ---
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 She was found to have a UTI although no white count no fever. Patient admitted antibiotics initiated, x-rays obtained computed tomography scan obtained, all testing negative for any acute process. Today patient is more awake, complains of some minor musculoskeletal pain secondary to the fall but has full range of motion of her arms and legs, tolerating her diet,t at baseline patient is wheelchair-bound, is able to move freely in her bed. We'll convert antibiotics to oral and patient is stable for discharge. PHYSICAL EXAM: CARDIOVASCULAR: First and second sounds noted trace edema to lower extremities. RESPIRATORY: Respiratory effort normal, lung sounds diminished bilaterally GI: Abdomen soft nontender liver and spleen not palpable MUSKULOSKELETAL: Able to move all 4 limbs, at baseline patient is wheelchair- bound PSYCHIATRY: Alert and oriented 3, able to answer questions, is easily agitated. Patient was seen and examined by nurse practitioner Arabella Vasquez in all elements of the case discussed with attending Dr. Alvarez DISPOSITION: Discharge to [facility] Pertinent Studies: CT of the head cervical spine: No acute intracranial abnormality seen, mild sleep peripheral atrophy. No acute fracture or malalignment of the cervical spine mild to moderate multilevel spondylitic changes. 1.7 cm fluid attenuating lesion right paraspinal region just on T1-T2 neural foramen. Chest x-ray: Faisal medically with moderate central vascular congestion. Patient Condition at Discharge: Stable Plan - Discharge Summary New Discharge Prescriptions: New Cefuroxime Axetil [Ceftin] 500 mg PO BID #4 tab Continue Simvastatin [Zocor] 10 mg PO DAILY buPROPion SR [Wellbutrin SR] 150 mg PO DAILY Oxybutynin Chloride [Oxybutynin Chloride ER] 15 mg PO BID amLODIPine [Norvasc] 5 mg PO DAILY Metoprolol Tartrate [Lopressor] 25 mg PO DAILY Gabapentin [Neurontin] 300 mg PO BID Fenofibrate Nanocrystallized [Fenofibrate] 145 mg PO DAILY Isosorbide Mononitrate ER [Imdur] 30 mg PO DAILY Acetaminophen Tab [Tylenol] 650 mg PO Q4HR PRN tab PRN Reason: Fever And/ Or Pain Furosemide [Lasix] 40 mg PO DAILY #30 tablet Albuterol Sulfate [Accuneb] 1.25 mg INHALATION RT-QID Albuterol Sulfate [Accuneb] 1.25 mg INHALATION RT-Q4H PRN PRN Reason: Shortness Of Breath Amino Acids/Protein Hydrolys [Pro-Stat Supplement] 30 ml PO BID Ferrous Sulfate [Feosol] 325 mg PO DAILY Insulin Aspart [NovoLOG] 8 unit SQ AC-TID Insulin Glargine [Lantus] 40 unit SQ DAILY@1999 Multivitamins, Thera [Multivitamin (formulary)] 1 tab PO DAILY Nystatin 100,000 Unit/gm Powd [Mycostatin Powder] 1 applic TOPICAL BID Omeprazole 20 mg PO BID Venlafaxine HCl ER [Effexor XR] 75 mg PO DAILY Venlafaxine HCl ER [Effexor XR] 37.5 mg PO HS ALPRAZolam [Xanax] 0.25 mg PO QID PRN #20 tab PRN Reason: Anxiety Discontinued Loratadine [Claritin] 10 mg PO DAILY Insulin Aspart [NovoLOG] See Protocol SQ AC-TID Discharge Medication List Fenofibrate Nanocrystallized [Fenofibrate] 145 mg PO DAILY 11/03/15 [History] Gabapentin [Neurontin] 300 mg PO BID 11/03/15 [History] Metoprolol Tartrate [Lopressor] 25 mg PO DAILY 11/03/15 [History] Oxybutynin Chloride [Oxybutynin Chloride ER] 15 mg PO BID 11/03/15 [History] Simvastatin [Zocor] 10 mg PO DAILY 11/03/15 [History] amLODIPine [Norvasc] 5 mg PO DAILY 11/03/15 [History] buPROPion SR [Wellbutrin SR] 150 mg PO DAILY 11/03/15 [History] Isosorbide Mononitrate ER [Imdur] 30 mg PO DAILY 10/21/16 [History] Acetaminophen Tab [Tylenol] 650 mg PO Q4HR PRN tab 10/28/16 [Rx] Furosemide [Lasix] 40 mg PO DAILY #30 tablet 10/28/16 [Rx] Albuterol Sulfate [Accuneb] 1.25 mg INHALATION RT-Q4H PRN 12/01/16 [History] Albuterol Sulfate [Accuneb] 1.25 mg INHALATION RT-QID 12/01/16 [History] Amino Acids/Protein Hydrolys [Pro-Stat Supplement] 30 ml PO BID 12/01/16 [ History] Ferrous Sulfate [Feosol] 325 mg PO DAILY 12/01/16 [History] Insulin Aspart [NovoLOG] 8 unit SQ AC-TID 12/01/16 [History] Insulin Glargine [Lantus] 40 unit SQ DAILY@199912/01/16 [History] Multivitamins, Thera [Multivitamin (formulary)] 1 tab PO DAILY 12/01/16 [History ] Nystatin 100,000 Unit/gm Powd [Mycostatin Powder] 1 applic TOPICAL BID 12/01/16 [History] Omeprazole 20 mg PO BID 12/01/16 [History] Venlafaxine HCl ER [Effexor XR] 37.5 mg PO HS 12/01/16 [History] Venlafaxine HCl ER [Effexor XR] 75 mg PO DAILY 12/01/16 [History] ALPRAZolam [Xanax] 0.25 mg PO QID PRN #20 tab 12/02/16 [Rx] Cefuroxime Axetil [Ceftin] 500 mg PO BID #4 tab 12/02/16 [Rx] Follow up Appointment(s)/Referral(s): Jeffrey Aguilar DO [Primary Care Provider] - 12/03/16 Ambulatory/Diagnostic Orders: Complete Blood Count w/diff [LAB.AMB] Location: Determined By Patient Activity/Diet/Wound Care/Special Instructions: consistent carb diet Discharge Disposition: TRANSFER TO SNF/ECF <Don Alvarez - Last Filed: 12/02/16 19:33> Hospital Course: Attending note./An addendum to discharge summary Date of service-12/02/2016 This patient was seen and examined by me . I reviewed the note of my nurse practitioner, Ms. Vasquez. Discussed with her, additional findings as below. Patient admitted with acute UTI, fall with delirium. Doing much better with antibiotics. Tolerating her diet On examination: Lungs-fair entry, psych counseling questions appropriately Investigations: Urine culture likely negative Assessment and plan: Acute UTI with delirium, present admission. Not improved. Discharged to ECF with antibiotics. Discharge planning more than 35 minutes, including discussion
== END 2016-12-02 15:21 | DRG 689 ==
LOC: EC 08:48 → 4MS4W 14:21
PROVIDERS: ADMIT Hospitalist; ATTEND Hospitalist
DX: N39.0 Urinary tract infection, site not specified (principal); G93.41 Metabolic encephalopathy; I13.0 Hypertensive heart and chronic kidney disease with heart failure and stage 1 through stage 4 chronic kidney disease, or unspecified chronic kidney disease; F03.90 Unspecified dementia, unspecified severity, without behavioral disturbance, psychotic disturbance, mood disturbance, and anxiety; E11.21 Type 2 diabetes mellitus with diabetic nephropathy; F05 Delirium due to known physiological condition; I50.9 Heart failure, unspecified; E66.9 Obesity, unspecified; E11.42 Type 2 diabetes mellitus with diabetic polyneuropathy; J44.9 Chronic obstructive pulmonary disease, unspecified; E78.5 Hyperlipidemia, unspecified; E11.22 Type 2 diabetes mellitus with diabetic chronic kidney disease; J98.4 Other disorders of lung; S00.81XA Abrasion of other part of head, initial encounter; I25.10 Atherosclerotic heart disease of native coronary artery without angina pectoris; F32.9 Major depressive disorder, single episode, unspecified; K21.9 Gastro-esophageal reflux disease without esophagitis; M54.9 Dorsalgia, unspecified; E66.01 Morbid (severe) obesity due to excess calories; M15.9 Polyosteoarthritis, unspecified; N18.3 Chronic kidney disease, stage 3 (moderate); I67.9 Cerebrovascular disease, unspecified; M47.812 Spondylosis without myelopathy or radiculopathy, cervical region; Z87.440 Personal history of urinary (tract) infections; Z88.6 Allergy status to analgesic agent; Z71.3 Dietary counseling and surveillance; Z83.3 Family history of diabetes mellitus; Z79.4 Long term (current) use of insulin; Z79.899 Other long term (current) drug therapy; Z99.3 Dependence on wheelchair; Z88.1 Allergy status to other antibiotic agents; Z88.5 Allergy status to narcotic agent; Z88.0 Allergy status to penicillin; Z80.9 Family history of malignant neoplasm, unspecified; W19.XXXA Unspecified fall, initial encounter; Y92.122 Bedroom in nursing home as the place of occurrence of the external cause
CPT/HCPCS: 36415; 70450; 71010; 72125; 80053; 80306; 81001; 82140; 82550; 82553; 83036; 84484; 85025; 85610; 85730; 87040; 87077; 87086; 87186; 93005

== ENCOUNTER 2017-01-03 15:21 | Inpatient (IN) | payer MEDICARE, OTHER ==
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
[2017-01-03] MEDS ORDERED: diphenhydrAMINE 50 MG/ML 1 ML VIAL IVP STA (16:08)
[2017-01-03] MEDS ORDERED: LORazepam 2 MG/ML SYRINGE IV STA (16:08)
[2017-01-03 16:35] LABS: Anisocytosis Moderate; Basophils # (A) 0.1 k/uL (0-0.2); Basophils % (A) 1 %; CH 24.4; CHCM 30.6; Eosinophils # (A) 0.4 k/uL (0-0.7); Eosinophils % (A) 4 %; HCT 44.5 % (34.0-46.0); HGB 13.3 gm/dL (11.4-16.0); Hypochromasia Moderate; Luc # (Auto) 0.22; Luc % (Auto) 2; Lymphocytes # (A) 1.2 k/uL (1.0-4.8); Lymphocytes % (A) 12 %; MCH 23.8 pg (25.0-35.0); MCHC 29.8 g/dL (31.0-37.0); MCV 79.9 fL (80.0-100.0); Mean Platelet Volume 7.1; Microcytosis Slight; Monocytes # (A) 0.5 k/uL (0-1.0); Monocytes % (A) 5 %; Neutrophils # (A) 8.1 k/uL (1.3-7.7); Neutrophils % (A) 77 %; RBC 5.57 m/uL (3.80-5.40); RDW 20.2 % (11.5-15.5); WBC 10.5 k/uL (3.8-10.6); WBC (Perox) 10.76
[2017-01-03 16:55] LABS: ALT 34 U/L (9-52); AST 37 U/L (14-36); Acetaminophen <10.0 ug/mL; Alcohol <10 mg/dL; Alkaline Phosphatase 53 U/L (38-126); Anion Gap 9 mmol/L; Blood Urea Nitrogen 32 mg/dL (7-17); Calcium 9.3 mg/dL (8.4-10.2); Carbon Dioxide 27 mmol/L (22-30); Chloride 106 mmol/L (98-107); Creatine Kinase 28 U/L (30-135); Glucose 86 mg/dL (74-99); Non-African American GFR(MDRD) 52 (>60 ml/min/1.73 sqM); Potassium 5.3 mmol/L (3.5-5.1); Salicylate <1.0 mg/dL; Sodium 142 mmol/L (137-145); Total Bilirubin 0.5 mg/dL (0.2-1.3); Total Protein 6.6 g/dL (6.3-8.2)
[2017-01-03 17:07] LABS: Creatine Kinase MB 0.9 ng/mL (0.0-2.4); Troponin I <0.012 ng/mL (0.000-0.034)
[2017-01-03 17:35] LABS: Appearance,Urine Turbid (Clear); Bilirubin,Urine Negative (Negative); Glucose,Urine (UA) Negative (Negative); Ketones,Urine Negative (Negative); Leukocyte Esterase,Urine Large (Negative); Nitrite,Urine Negative (Negative); Particle Count 5046; Protein,Urine 1+ (Negative); Specific Gravity,Urine 1.015 (1.001-1.035); UA Billing (MACRO vs. MICRO) MICRO; Urobilinogen,Urine <2.0 mg/dL (<2.0); WBC,Urine >182 /hpf (0-5)
[2017-01-03] MEDS ORDERED: SODIUM CHLORIDE 0.9% 1,000 ML IV ONE (18:07)
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
[2017-01-03 20:47] LABS: Glucose,Whole Blood 82 mg/dL (75-99)
[2017-01-03] MEDS ORDERED: LORATADINE 10 MG TAB PO PRN (20:52)
[2017-01-03] MEDS ORDERED: ALBUTEROL NEBULIZED 2.5 MG/3 ML INHALATION PRN (20:52)
[2017-01-03] MEDS ORDERED: ALPRAZolam 0.25 MG TAB PO PRN (20:52)
[2017-01-03] MEDS ORDERED: BENZOCAINE/MENTHOL LOZENG 1 EACH LOZENGE MUCOUS MEM PRN (20:52)
[2017-01-03] MEDS ORDERED: TEMAZEPAM 15 MG CAP PO PRN (21:25)
[2017-01-03] MEDS: FUROSEMIDE 10 MG/ML 4 ML VIAL IV SCH (21:39)
[2017-01-03] MEDS: GABAPENTIN 300 MG CAP PO SCH (21:40)
[2017-01-03] MEDS: OXYBUTYNIN 15 MG TAB.ER.24 PO SCH (21:41)
[2017-01-03] MEDS: VENLAFAXINE HCL ER 37.5 MG CAP PO SCH (21:41)
[2017-01-03] MEDS: INSULIN LISPRO (humaLOG) 300 UNIT/3 ML VIAL SQ SCH (21:41)
[2017-01-03] MEDS: HEPARIN SODIUM,PORCINE 5,000 UNIT/ML 1 ML VIAL SQ SCH (21:52)
[2017-01-03] MEDS: ATORVASTATIN 10 MG TAB PO SCH (21:52)
[2017-01-03 22:49] LABS: Hemoglobin A1C 9.2 % (4.2-6.1)
[2017-01-04 07:29] LABS: Glucose,Whole Blood 111 mg/dL (75-99)
[2017-01-04] MEDS: INSULIN LISPRO (humaLOG) 300 UNIT/3 ML VIAL SQ SCH ×8 (07:50→20:54)
[2017-01-04] MEDS: MICONAZOLE NITRATE 2% CREAM 14 GM TUBE TOPICAL SCH (07:51)
[2017-01-04] MEDS: FENOFIBRATE 160 MG TAB PO SCH (07:51)
[2017-01-04] MEDS: FUROSEMIDE 10 MG/ML 4 ML VIAL IV SCH (07:51)
[2017-01-04] MEDS: HEPARIN SODIUM,PORCINE 5,000 UNIT/ML 1 ML VIAL SQ SCH ×2 (07:51→20:54)
[2017-01-04] MEDS: FERROUS SULFATE 325 MG TAB PO SCH (07:52)
[2017-01-04] MEDS: GABAPENTIN 300 MG CAP PO SCH ×2 (07:52→20:55)
[2017-01-04] MEDS: VENLAFAXINE HCL ER 75 MG CAP PO SCH (07:53)
[2017-01-04] MEDS: amLODIPine 5 MG TAB PO SCH (07:53)
[2017-01-04] MEDS: OXYBUTYNIN 15 MG TAB.ER.24 PO SCH ×2 (07:53→20:55)
[2017-01-04] MEDS: METOPROLOL TARTRATE 25 MG TAB PO SCH (07:53)
[2017-01-04] MEDS: buPROPion SR 150 MG TABLET.ER PO SCH (07:53)
[2017-01-04] MEDS: ISOSORBIDE MONONITRATE ER 30 MG TAB.ER.24H PO SCH (07:53)
[2017-01-04] MEDS: PANTOPRAZOLE 40 MG TABLET PO SCH (07:54)
[2017-01-04] MEDS: ALBUTEROL NEBULIZED 2.5 MG/3 ML INHALATION SCH ×4 (08:49→19:06)
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
[2017-01-04 12:02] LABS: Glucose,Whole Blood 203 mg/dL (75-99)
[2017-01-04] MEDS: MULTIVITAMINS, THERA 1 EACH TAB PO SCH (12:50)
[2017-01-04 15:04] VITALS: BMI 43.4
--- NOTE | 2017-01-04 15:14 | P.CRDCN ---
History of Present Illness Consult date: 01/04/17 History of present illness: This is a 76-year-old female. Past medical history significant for COPD, dementia, GERD, hypertension and congestive heart failure.. Patient presents with complaints of angry outbursts and altered mental status. We have been consulted due to an abnormal finding on the chest x-ray indicating congestive heart failure although when compared with previous chest x-ray findings are consistent. Upon examination the patient is confused. But she denies all complaints at this time. She is currently being treated with urinary tract infection. EKG done shows normal sinus mechanism, rate of 75 beats per minute with oh T- wave abnormality. When compared with old EKG this appears consistent. Hemoglobin 13.3, potassium 5.3, BUN 32 creatinine 1.04, pro-BNP 475. First set of CPK and troponin are normal. Most recent echo dated 10/22/2016 indicates mild concentric left ventricular hypertrophy, preserved left ventricular function with an ejection fraction of 50 -55%, mild mitral regurgitation, mild tricuspid regurgitation mild to moderate pulmonary hypertension with an RSVP of 49.01 mmHg.. Review of Systems REVIEW OF SYSTEMS: Patient denies any chest discomfort. No shortness of breath. No diaphoresis. Denies headache, dizziness, blurred vision, double vision. No dyspnea on exertion. Patient denies any stomach discomfort. No nausea, vomiting. No hematochezia. No hematemesis. Denies any black stools or blood in his stools. No syncope. No palpitations. No cough. No recent fever or chills. No muscle weakness or numbness. Past Medical History Past Medical History: Coronary Artery Disease (CAD), Heart Failure, COPD, Dementia, Diabetes Mellitus, GERD/Reflux, Hyperlipidemia, Hypertension Additional Past Medical History / Comment(s): PT RECENTLY ADMITTED TO [facility] ON WITH EXACERBATION COPD/CHF/ACUTE HYPOXIC RESPIRATORY FAILURE. OTHER HX ; IDDM TYPE II, DIABETIC PERIPHERAL NEUROPATHY, SEVERE RESTRICTIVE LUNG DISEASE , POSSIBLE AKHIL, CHRONIC RENAL FAILURE, CHRONIC ANEMIA, UTIS, WHEELCHAIR BOUND. History of Any Multi-Drug Resistant Organisms: None Reported Past Surgical History: Unable to Obtain Past Anesthesia/Blood Transfusion Reactions: Unable to Obtain Past Psychological History: Anxiety, Depression Additional Psychological History / Comment(s): PT HAS BEEN A RESIDENT AT [facility] SINCE 10/28/16. SHE IS WHEELCHAIR BOUND. SHE FEEDS HERSELF. SHE IS NOT INCONTINENT. Smoking Status: Never smoker Past Alcohol Use History: None Reported Past Drug Use History: None Reported - Past Family History Sister(s) Family Medical History: Cancer, Diabetes Mellitus Father Family Medical History: Unable to Obtain Additional Family Medical History / Comment(s): pt unsure Mother Family Medical History: Unable to Obtain Additional Family Medical History / Comment(s): pt unsure Medications and Allergies Home Medications Medication Instructions Recorded Confirmed Type Fenofibrate Nanocrystallized 145 mg PO DAILY 11/03/15 01/03/17 History [Fenofibrate] Gabapentin [Neurontin] 300 mg PO BID 11/03/15 01/03/17 History Metoprolol Tartrate [Lopressor] 25 mg PO DAILY 11/03/15 01/03/17 History Oxybutynin Chloride [Oxybutynin 15 mg PO BID 11/03/15 01/03/17 History Chloride ER] Simvastatin [Zocor] 10 mg PO HS 11/03/15 01/03/17 History amLODIPine [Norvasc] 5 mg PO DAILY 11/03/15 01/03/17 History buPROPion SR [Wellbutrin SR] 150 mg PO DAILY 11/03/15 01/03/17 History Isosorbide Mononitrate ER [Imdur] 30 mg PO DAILY 10/21/16 01/03/17 History Albuterol Sulfate [Accuneb] 1.25 mg INHALATION RT-Q4H PRN 12/01/16 01/03/17 History Albuterol Sulfate [Accuneb] 1.25 mg INHALATION 12/01/16 01/03/17 History RT-QID@,,, Ferrous Sulfate [Feosol] 325 mg PO DAILY 12/01/16 01/03/17 History Insulin Aspart [NovoLOG] 10 unit SQ AC-TID@,,12/01/16 01/03/17 History Insulin Glargine [Lantus] 48 unit SQ HS@199912/01/16 01/03/17 History Multivitamins, Thera [Multivitamin 1 tab PO DAILY 12/01/16 01/03/17 History (formulary)] Omeprazole 20 mg PO BID 12/01/16 01/03/17 History Venlafaxine HCl ER [Effexor XR] 37.5 mg PO HS 12/01/16 01/03/17 History Venlafaxine HCl ER [Effexor XR] 75 mg PO DAILY 12/01/16 01/03/17 History Benzocaine/Menthol Lozeng [Cepacol 1 lozenge PO Q2H PRN 01/03/17 01/03/17 History lozenge] Insulin Aspart [NovoLOG] See Protocol SQ ACHS@07,11,16,21 01/03/17 01/03/17 History Loratadine [Claritin] 10 mg PO DAILY PRN 01/03/17 01/03/17 History Miconazole 2% Cream [Monistat-Derm] 1 applic TOPICAL DAILY@0900 01/03/17 History Allergies Allergy/AdvReac Type Severity Reaction Status Date / Time morphine AdvReac Unknown Verified 01/03/17 15:50 NSAIDS (Non-Steroidal AdvReac Unknown Verified 01/03/17 15:50 Anti-Inflamma Penicillins AdvReac Abdominal Verified 01/03/17 15:50 Pain Quinazolinones AdvReac Unknown Verified 01/03/17 15:50 Quinolones AdvReac Unknown Verified 01/03/17 15:50 salicylates [salicylate] AdvReac Unknown Verified 01/03/17 15:50 Physical Exam Vitals: Vital Signs Temp Pulse Pulse Resp BP BP Pulse Ox 01/04/17 07:00 98.5 F 91 18 147/66 90 L 01/03/17 23:00 97.9 F 82 18 134/62 90 L 01/03/17 21:00 97.8 F 79 18 138/64 91 L 01/03/17 20:24 88 18 113/69 01/03/17 18:03 84 18 144/74 94 L 01/03/17 17:40 18 01/03/17 15:29 70 18 136/69 Intake and Output 01/03/17 01/04/17 01/04/17 22:59 06:59 14:59 Other: # Voids 1 3 2 Weight 99.1 kg 97.5 kg GENERAL: This is a 76-year-old occasion female in no apparent distress at the time of my examination. Morbid obesity. HEENT: Head is atraumatic, normocephalic. Pupils are equal, round. Sclerae anicteric. Conjunctivae are clear. Mucous membranes of the mouth are moist. Neck is supple. There is no jugular venous distention. No carotid bruit is heard. Short neck. LUNGS: Expiratory wheezes, no rales or rhonchi. Diminished bilaterally. No chest wall tenderness is noted on palpation or with deep breathing. HEART: Regular rate and rhythm without murmurs, rubs or gallops. S1 and S2 heard. ABDOMEN: Soft, nontender. Bowel sounds are heard. No organomegaly noted. EXTREMITIES: 2+ peripheral pulses with no evidence of peripheral edema and no calf tenderness noted. NEUROLOGIC: Patient is awake, alert and oriented x2. Results 01/03/17 16:17 01/03/17 16:17 Cardiac Enzymes 01/03/17 01/03/17 Range/Units 16:17 16:17 AST 37 H (14-36) U/L CK-MB (CK-2) 0.9 (0.0-2.4) ng/mL Troponin I <0.012 (0.000-0.034) ng/mL CBC 01/03/17 Range/Units 16:17 WBC 10.5 (3.8-10.6) k/uL RBC 5.57 H (3.80-5.40) m/uL Hgb 13.3 (11.4-16.0) gm/dL Hct 44.5 (34.0-46.0) % Plt Count 340 (150-450) k/uL Comprehensive Metabolic Panel 01/03/17 Range/Units 16:17 Sodium 142 (137-145) mmol/L Potassium 5.3 H (3.5-5.1) mmol/L Chloride 106 (98-107) mmol/L Carbon Dioxide 27 (22-30) mmol/L BUN 32 H (7-17) mg/dL Creatinine 1.04 (0.52-1.04) mg/dL Glucose 86 (74-99) mg/dL Calcium 9.3 (8.4-10.2) mg/dL AST 37 H (14-36) U/L ALT 34 (9-52) U/L Alkaline Phosphatase 53 (38-126) U/L Total Protein 6.6 (6.3-8.2) g/dL Albumin 3.5 (3.5-5.0) g/dL Current Medications Generic Name Dose Route Start Last Admin Trade Name Freq PRN Reason Stop Dose Admin Acetaminophen 650 mg 01/03/17 20:52 Tylenol Tab PO Q4HR PRN Fever and/ or Pain Albuterol Sulfate 1.25 mg 01/03/17 20:52 Ventolin Nebulized INHALATION RT-Q4H PRN Shortness Of Breath Albuterol Sulfate 1.25 mg 01/04/17 08:00 01/04/17 12:12 Ventolin Nebulized INHALATION Not Given RT-QID@,,16,20 HARITHA Alprazolam 0.25 mg 01/03/17 20:52 01/04/17 01:11 Xanax PO 0.25 mg QID PRN Administration Anxiety Amlodipine Besylate 5 mg 01/04/17 09:00 01/04/17 07:53 Norvasc PO 5 mg DAILY HARITHA Administration Atorvastatin Calcium 10 mg 01/03/17 21:00 01/03/17 21:52 Lipitor PO 10 mg HS [facility] Administration Benzocaine/Menthol 1 each 01/03/17 20:52 Cepacol Lozenge MUCOUS MEM Q2H PRN Sore Throat Bupropion HCl 150 mg 01/04/17 09:00 01/04/17 07:53 Wellbutrin Sr PO 150 mg DAILY [facility]A Administration Fenofibrate 160 mg 01/04/17 09:00 01/04/17 07:51 Lofibra PO 160 mg DAILY [facility] Administration Ferrous Sulfate 325 mg 01/04/17 09:00 01/04/17 07:52 Feosol PO 325 mg DAILY [facility] Administration Furosemide 40 mg 01/04/17 16:00 Lasix PO BID@0900,1600 [facility] Gabapentin 300 mg 01/03/17 21:00 01/04/17 07:52 Neurontin PO 300 mg BID [facility] Administration Heparin Sodium (Porcine) 5,000 unit 01/03/17 21:30 01/04/17 07:51 Heparin SQ 5,000 unit Q12HR [facility] Administration Ceftriaxone Sodium 1,000 mg/ 50 mls @ 100 mls/hr 01/04/17 09:00 01/04/17 07: 52 Sodium Chloride IVPB 100 mls/hr DAILY [facility] Administration Insulin Glargine 48 unit 01/04/17 20:00 Lantus SQ HS@2000 [facility] Insulin Human Lispro 10 unit 01/04/17 07:00 01/04/17 12:50 Humalog SQ 10 unit AC-TID@ [facility] Administration Insulin Human Lispro 0 unit 01/03/17 21:00 01/04/17 12:50 Humalog SQ 4 unit ACHS [facility] Administration Protocol Isosorbide Mononitrate 30 mg 01/04/17 09:00 01/04/17 07:53 Imdur PO 30 mg DAILY [facility] Administration Loratadine 10 mg 01/03/17 20:52 Claritin PO DAILY PRN Allergy Symptoms Metoprolol Tartrate 25 mg 01/04/17 09:00 01/04/17 07:53 Lopressor PO 25 mg DAILY [facility] Administration Miconazole Nitrate 1 applic 01/04/17 09:00 01/04/17 07:51 Monistat-Derm TOPICAL 1 applic DAILY@0900 [facility] Administration Multivitamins 1 each 01/04/17 12:00 01/04/17 12:50 Theragran PO 1 each DAILY@1200 [facility] Administration Oxybutynin Chloride 15 mg 01/03/17 21:00 01/04/17 07:53 Ditropan Xl PO 15 mg BID [facility] Administration Pantoprazole Sodium 40 mg 01/04/17 07:30 01/04/17 07:54 Protonix PO 40 mg AC-BRKFST [facility] Administration Temazepam 15 mg 01/03/17 21:25 Restoril PO HS PRN Insomnia Venlafaxine HCl 37.5 mg 01/03/17 21:00 01/03/17 21:41 Effexor Xr PO 37.5 mg HS [facility] Administration Venlafaxine HCl 75 mg 01/04/17 09:00 01/04/17 07:53 Effexor Xr PO 75 mg DAILY [facility] Administration Intake and Output 01/03/17 01/04/17 01/04/17 22:59 06:59 14:59 Other: # Voids 1 3 2 Weight 99.1 kg 97.5 kg 01/03/17 16:17 01/03/17 16:17 - EKG Interpretation EKG: sinus rhythm, normal axis, normal QRS, normal ST/T Assessment and Plan Plan: ASSESSMENT 1. Chronic diastolic heart failure 2. Morbid obesity 3. Hyperlipidemia 4. Essential hypertension 5. Hypertensive heart disease 6. Diabetes mellitus PLAN The patient does not present with symptoms indicative of heart failure. She has a normal BNP, no peripheral edema, no crackles/rales evident in the lungs or any complaints of shortness of breath. The patient can be switched back to oral Lasix. We recommend a pulmonary consultation to evaluate what seems to be an underlying lung etiology. We will continue see the patient on an as-needed basis as a free to call us with any questions at any time. Thank you for this consultation. Nurse Practitioner note has been reviewed, I agree with a documented findings and plan of care. Patient was seen and examined.
--- NOTE | 2017-01-04 15:30 | US ---
EXAMINATION TYPE: US chest DATE OF EXAM: 01/04/2017 COMPARISON: NONE CLINICAL HISTORY: 76-year-old female r/o pleural effusion. TECHNIQUE: Multiple sonographic images of the posterior lower hemithoraces for assessment of pleural effusion. FINDINGS: EXAM MEASUREMENTS: Right Pleural Effusion fluid pocket: unable to visualize any fluid collection Left Pleural Effusion fluid pocket: unable to visualize any fluid collection Right side NOT marked for possible thoracentesis outside the dept. Left side NOT marked for possible thoracentesis outside the dept. Pulmonologists are able to review the images in the patient?s EMR. IMPRESSIONS: No significant pleural effusion identified on either side.
[2017-01-04 17:18] LABS: Glucose,Whole Blood 100 mg/dL (75-99)
[2017-01-04] MEDS: FUROSEMIDE 40 MG TAB PO SCH (17:38)
--- NOTE | 2017-01-04 19:10 | PN ---
DATE OF SERVICE: 01/04/17 This 76 -year-old woman was admitted with change in mental status and possible UTI sepsis, is being closely monitored. The chest ultrasound was done which showed no significant pleural effusions. Otherwise, the cultures are pending at this time. WBC 11.5. UA is also noted. The patient continues to be mildly confused, possibly at baseline. Past medical history reviewed. Review of systems could not be taken. Current medications are reviewed and include: 1. Tylenol prn. 2. Ventolin. 3. Xanax 0.25 q.i.d. 4. Norvasc 5 mg daily. 5. Cepacol. 6. Rocephin 1 gm daily. 7. Lasix. 8. Lantus. 9. Humalog. 10. Imdur. 11. Ditropan. 12. Restoril. 13. Effexor. 14. Doses reviewed. On exam, the patient is alert and oriented times three. Pulse 72. Blood pressure 95/56. Respiratory rate 16. Temperature 96.1 degrees. Pulse ox 94% on room air. HEENT: Conjunctivae normal. Neck: No JVD. CARDIOVASCULAR: S1 , S2 muffled. Respiratory: Breath sounds diminished at the bases. A few scattered rhonchi and no crackles. Abdomen soft, nontender. LEGS: No edema. No swelling. 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 Moves all four limbs. No focal deficits. Lymphatics: No lymph nodes palpable in the neck and axillae. Skin: No ulcer, rash or bleeding. LABS: WBC 10.5, hemoglobin 13.3. Sodium 142, potassium 5.3. UA noted. ASSESSMENT: 1. Change in mental status with possible urinary tract infection with sepsis and acute metabolic encephalopathy secondary to sepsis. 2. Congestive heart failure, acute exacerbation with acute on chronic diastolic dysfunction. 3. History of chronic obstructive pulmonary disease. 4. Dementia. 5. Diabetes mellitus Type 2. 6. Gastroesophageal reflux disease. 7. Hypertension. 8. Hyperlipidemia. RECOMMENDATIONS AND DISCUSSION: Recommend to continue the current medications, continue with symptomatic treatment. Continue with diuretics. A 2D echo was ordered. Cardiology has seen the patient. Recommended po diuretics. Continue to monitor. MTDD
[2017-01-04 20:46] LABS: Glucose,Whole Blood 256 mg/dL (75-99)
[2017-01-04] MEDS: INSULIN GLARGINE 100 UNIT/ML 10 ML VIAL SQ SCH (20:54)
[2017-01-04] MEDS: ATORVASTATIN 10 MG TAB PO SCH (20:55)
[2017-01-04] MEDS: VENLAFAXINE HCL ER 37.5 MG CAP PO SCH (20:56)
[2017-01-05 07:05] LABS: Glucose,Whole Blood 168 mg/dL (75-99)
[2017-01-05] MEDS: ALBUTEROL NEBULIZED 2.5 MG/3 ML INHALATION SCH ×3 (07:17→19:42)
[2017-01-05] MEDS: ISOSORBIDE MONONITRATE ER 30 MG TAB.ER.24H PO SCH (08:01)
[2017-01-05] MEDS: buPROPion SR 150 MG TABLET.ER PO SCH (08:01)
[2017-01-05] MEDS: OXYBUTYNIN 15 MG TAB.ER.24 PO SCH ×3 (08:01→21:34)
[2017-01-05] MEDS: HEPARIN SODIUM,PORCINE 5,000 UNIT/ML 1 ML VIAL SQ SCH ×2 (08:02→21:29)
[2017-01-05] MEDS: FENOFIBRATE 160 MG TAB PO SCH (08:02)
[2017-01-05] MEDS: amLODIPine 5 MG TAB PO SCH (08:02)
[2017-01-05] MEDS: VENLAFAXINE HCL ER 75 MG CAP PO SCH (08:02)
[2017-01-05] MEDS: GABAPENTIN 300 MG CAP PO SCH ×3 (08:02→21:33)
[2017-01-05] MEDS: INSULIN LISPRO (humaLOG) 300 UNIT/3 ML VIAL SQ SCH ×7 (08:02→21:34)
[2017-01-05] MEDS: PANTOPRAZOLE 40 MG TABLET PO SCH (08:03)
[2017-01-05] MEDS: FERROUS SULFATE 325 MG TAB PO SCH (08:03)
[2017-01-05] MEDS: METOPROLOL TARTRATE 25 MG TAB PO SCH (08:03)
[2017-01-05] MEDS: MICONAZOLE NITRATE 2% CREAM 14 GM TUBE TOPICAL SCH (08:04)
[2017-01-05] MEDS: FUROSEMIDE 40 MG TAB PO SCH ×2 (08:04→16:52)
[2017-01-05 08:35] LABS: Anisocytosis Slight; Basophils % (A) 1 %; CH 24.4; CHCM 30.1; Eosinophils # (A) 0.4 k/uL (0-0.7); Eosinophils % (A) 5 %; HCT 43.7 % (34.0-46.0); HDW 2.81; HGB 12.7 gm/dL (11.4-16.0); Hypochromasia Marked; Luc # (Auto) 0.22; Luc % (Auto) 3; Lymphocytes # (A) 1.3 k/uL (1.0-4.8); Lymphocytes % (A) 17 %; MCH 23.6 pg (25.0-35.0); MCHC 29.1 g/dL (31.0-37.0); MCV 81.2 fL (80.0-100.0); Mean Platelet Volume 7.5; Microcytosis Slight; Monocytes # (A) 0.5 k/uL (0-1.0); Monocytes % (A) 7 %; Neutrophils % (A) 68 %; RBC 5.38 m/uL (3.80-5.40); RDW 19.9 % (11.5-15.5); WBC 7.4 k/uL (3.8-10.6); WBC (Perox) 7.23
[2017-01-05 09:11] LABS: Calcium 8.8 mg/dL (8.4-10.2); Potassium 4.6 mmol/L (3.5-5.1)
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
[2017-01-05] MEDS: MULTIVITAMINS, THERA 1 EACH TAB PO SCH (11:43)
[2017-01-05 12:30] LABS: Glucose,Whole Blood 122 mg/dL (75-99)
[2017-01-05] MEDS: LORazepam 2 MG/ML SYRINGE IV PRN (14:18)
[2017-01-05 16:57] LABS: Glucose,Whole Blood 116 mg/dL (75-99)
--- NOTE | 2017-01-05 19:58 | P.PN ---
Subjective Date of service 01/05/2017. Progress note being dictated for Dr. Vance. Interval history: This a 76-year-old female admitted with sepsis with acute UTI , acute metabolic encephalopathy, acute CHF exacerbation, and multiple other medical issues. Maintained on Rocephin, nebulized bronchodilators and Lasix. Worsening renal function. Chest x-ray reported CHF-fluid volume overload possible left pleural effusion. CT failed to report significant sized pleural effusion. Evaluated by pulmonary, recommendations noted. Currently maintaining O2 sats of 90% on room air. Denies chest pain, palpitations or increasing shortness of breath. Pleasantly confused. Afebrile. Objective - Vital Signs Vital signs: Vital Signs Temp 97.9 F 01/05/17 07:00 Pulse 83 01/05/17 07:00 Resp 20 01/05/17 07:00 BP 146/65 01/05/17 07:00 Pulse Ox 92 L 01/05/17 07:00 Intake & Output 01/04/17 01/05/17 01/05/17 18:59 06:59 18:59 Weight 97.5 kg 101.5 kg Other: Voiding Method Bedside Commode # Voids 2 3 - Exam PHYSICAL EXAM: VITAL SIGNS: As above GENERAL: [Sitting up in bed, no acute distress, obese] HEENT: [Pupils equal conjunctiva normal, oral mucosa moist] NECK: [Supple, no JVD] RESPIRATORY EFFORT:[ Normal] LUNGS: [Diminished, a few scattered rhonchi, no wheezes, left basilar crackles] CARDIOVASCULAR[ regular S1 and S2, no murmurs rubs or gallops, mild edema] GI: [Abdomen soft, nontender, positive bowel sounds. No organomegaly] PSYCH: [Alert and oriented -2, pleasantly confused] SKIN: No rash NEURO: No focal deficits, moves all 4 extremities, strength and sensations grossly intact - Labs CBC & Chem 7: 01/05/17 07:22 01/05/17 07:22 Labs: Abnormal Lab Results - Last 24 Hours (Table) 01/04/17 01/04/17 01/05/17 Range/Units 17:08 20:45 06:52 MCH (25.0-35.0) pg MCHC (31.0-37.0) g/dL RDW (11.5-15.5) % BUN (7-17) mg/dL Creatinine (0.52-1.04) mg/dL Glucose (74-99) mg/dL POC Glucose (mg/dL) 100 H 256 H 168 H (75-99) mg/dL 01/05/17 01/05/17 Range/Units 07:22 07:22 MCH 23.6 L (25.0-35.0) pg MCHC 29.1 L (31.0-37.0) g/dL RDW 19.9 H (11.5-15.5) % BUN 44 H (7-17) mg/dL Creatinine 1.50 H (0.52-1.04) mg/dL Glucose 156 H (74-99) mg/dL POC Glucose (mg/dL) (75-99) mg/dL Assessment and Plan Plan: 1. Change in mental status,acute metabolic encephalopathy with acute UTI with sepsis 2. [ Acute on chronic CHF, diastolic dysfunction]. 3. [ Acute hypoxic respiratory failure, pulmonary hypertension 4. [ Dementia]. 5. [ Gastroesophageal reflux disease]. 6. [ Diabetes]. 7. [ Hypertension]. 8. Morbid obesity, BMI 45.2 Plan: Continue on current medication regime ,monitoring and symptomatic treatment. Echo pending. Maintain nebulized bronchodilators, antibiotic, and diuresing. Close monitoring of renal function with repeat labs ordered for a.m. Discharge planning in progress for tomorrow to [facility] rehab pending pulmonary clearance. Further recommendations to follow. The impression and plan of care has been dictated as directed. : I performed a H&P examination of this patient and discussed the same with the dictator. I agree with the dictator's note. Any additional findings/opinions/ etc. will be noted.
[2017-01-05 20:28] LABS: Glucose,Whole Blood 75 mg/dL (75-99)
[2017-01-05] MEDS: ATORVASTATIN 10 MG TAB PO SCH ×2 (21:28→21:33)
[2017-01-05] MEDS: VENLAFAXINE HCL ER 37.5 MG CAP PO SCH (21:34)
[2017-01-05] MEDS: INSULIN GLARGINE 100 UNIT/ML 10 ML VIAL SQ SCH (23:11)
[2017-01-06] MEDS: ALBUTEROL NEBULIZED 2.5 MG/3 ML INHALATION SCH ×4 (07:26→18:54)
[2017-01-06 07:57] LABS: Anisocytosis Slight; Basophils % (A) 1 %; CH 24.5; CHCM 30.1; Eosinophils # (A) 0.3 k/uL (0-0.7); Eosinophils % (A) 5 %; HCT 41.1 % (34.0-46.0); HDW 2.86; HGB 12.4 gm/dL (11.4-16.0); Hypochromasia Marked; Luc # (Auto) 0.23; Luc % (Auto) 3; Lymphocytes # (A) 1.2 k/uL (1.0-4.8); Lymphocytes % (A) 18 %; MCH 24.7 pg (25.0-35.0); MCHC 30.2 g/dL (31.0-37.0); MCV 81.6 fL (80.0-100.0); Mean Platelet Volume 7.9; Microcytosis Slight; Monocytes # (A) 0.4 k/uL (0-1.0); Monocytes % (A) 6 %; Neutrophils # (A) 4.5 k/uL (1.3-7.7); Neutrophils % (A) 68 %; RBC 5.04 m/uL (3.80-5.40); RDW 19.8 % (11.5-15.5); WBC 6.7 k/uL (3.8-10.6); WBC (Perox) 6.55
[2017-01-06 07:58] LABS: Glucose,Whole Blood 124 mg/dL (75-99)
[2017-01-06] MEDS: INSULIN LISPRO (humaLOG) 300 UNIT/3 ML VIAL SQ SCH ×7 (08:00→22:14)
[2017-01-06 08:22] LABS: Calcium 8.7 mg/dL (8.4-10.2); Potassium 4.4 mmol/L (3.5-5.1)
[2017-01-06] MEDS: amLODIPine 5 MG TAB PO SCH (10:19)
[2017-01-06] MEDS: buPROPion SR 150 MG TABLET.ER PO SCH (10:19)
[2017-01-06] MEDS: PANTOPRAZOLE 40 MG TABLET PO SCH (10:19)
[2017-01-06] MEDS: GABAPENTIN 300 MG CAP PO SCH ×2 (10:20→22:14)
[2017-01-06] MEDS: FERROUS SULFATE 325 MG TAB PO SCH (10:20)
[2017-01-06] MEDS: HEPARIN SODIUM,PORCINE 5,000 UNIT/ML 1 ML VIAL SQ SCH ×2 (10:20→22:14)
[2017-01-06] MEDS: FENOFIBRATE 160 MG TAB PO SCH (10:20)
[2017-01-06] MEDS: FUROSEMIDE 40 MG TAB PO SCH ×2 (10:20→16:18)
[2017-01-06] MEDS: ISOSORBIDE MONONITRATE ER 30 MG TAB.ER.24H PO SCH (10:20)
[2017-01-06] MEDS: OXYBUTYNIN 15 MG TAB.ER.24 PO SCH ×2 (10:21→22:14)
[2017-01-06] MEDS: VENLAFAXINE HCL ER 75 MG CAP PO SCH (10:21)
[2017-01-06] MEDS: MICONAZOLE NITRATE 2% CREAM 14 GM TUBE TOPICAL SCH (10:21)
[2017-01-06] MEDS: METOPROLOL TARTRATE 25 MG TAB PO SCH (10:21)
--- NOTE | 2017-01-06 11:25 | P.DS ---
Providers Date of admission: 01/03/17 18:07 Attending physician: Lizet Vance Consults: 01/03/17 21:25 Consult Physician Routine Consulting Provider: Shubham Quintanilla Consult Reason/Comments: chf Do you want consulting provider notified?: Yes 01/04/17 12:27 Consult Physician Routine Consulting Provider: Seth Cummings Consult Reason/Comments: pleffusion Do you want consulting provider notified?: Yes Primary care physician: [facility] Course: The 26-year-old woman was admitted with the UTI with sepsis. Patient also had a change in mental status. Treated with antibiotics. Improved significantly. PTOT recommended ECF rehab. On exam vitals stable cardio S1 and S2 normal. Respirator system furuncular. Nervous system no focal deficit. Diffuse weakness noted. Total time taken 35 minutes. Final diagnosis 1. Change in mental status acute metabolic encephalopathy due to UTI with sepsis 2. Acute on chronic CHF with the chronic diastolic dysfunction. 3. Acute hypoxic respiratory failure 4. Pulmonary hypertension 5. Dementia extended 6. GERD 7. Diabetes mellitus type 2 8. Hypertension 9. Morbid obesity Patient Condition at Discharge: Fair Plan - Discharge Summary New Discharge Prescriptions: No Action Simvastatin [Zocor] 10 mg PO HS buPROPion SR [Wellbutrin SR] 150 mg PO DAILY Oxybutynin Chloride [Oxybutynin Chloride ER] 15 mg PO BID amLODIPine [Norvasc] 5 mg PO DAILY Metoprolol Tartrate [Lopressor] 25 mg PO DAILY Gabapentin [Neurontin] 300 mg PO BID Fenofibrate Nanocrystallized [Fenofibrate] 145 mg PO DAILY Isosorbide Mononitrate ER [Imdur] 30 mg PO DAILY Acetaminophen Tab [Tylenol] 650 mg PO Q4HR PRN tab PRN Reason: Fever And/ Or Pain Furosemide [Lasix] 40 mg PO DAILY #30 tablet Albuterol Sulfate [Accuneb] 1.25 mg INHALATION RT-QID@08,12,16,20 Albuterol Sulfate [Accuneb] 1.25 mg INHALATION RT-Q4H PRN PRN Reason: Shortness Of Breath Ferrous Sulfate [Feosol] 325 mg PO DAILY Insulin Aspart [NovoLOG] 10 unit SQ AC-TID@07,11,16 Insulin Glargine [Lantus] 48 unit SQ HS@1999 Multivitamins, Thera [Multivitamin (formulary)] 1 tab PO DAILY Omeprazole 20 mg PO BID Venlafaxine HCl ER [Effexor XR] 75 mg PO DAILY Venlafaxine HCl ER [Effexor XR] 37.5 mg PO HS ALPRAZolam [Xanax] 0.25 mg PO QID PRN #20 tab PRN Reason: Anxiety Benzocaine/Menthol Lozeng [Cepacol lozenge] 1 lozenge PO Q2H PRN PRN Reason: Sore Throat Insulin Aspart [NovoLOG] See Protocol SQ ACHS@,,, Loratadine [Claritin] 10 mg PO DAILY PRN PRN Reason: Allergy Symptoms Miconazole 2% Cream [Monistat-Derm] 1 applic TOPICAL DAILY@0900 Discharge Medication List Fenofibrate Nanocrystallized [Fenofibrate] 145 mg PO DAILY 11/03/15 [History] Gabapentin [Neurontin] 300 mg PO BID 11/03/15 [History] Metoprolol Tartrate [Lopressor] 25 mg PO DAILY 11/03/15 [History] Oxybutynin Chloride [Oxybutynin Chloride ER] 15 mg PO BID 11/03/15 [History] Simvastatin [Zocor] 10 mg PO HS 11/03/15 [History] amLODIPine [Norvasc] 5 mg PO DAILY 11/03/15 [History] buPROPion SR [Wellbutrin SR] 150 mg PO DAILY 11/03/15 [History] Isosorbide Mononitrate ER [Imdur] 30 mg PO DAILY 10/21/16 [History] Acetaminophen Tab [Tylenol] 650 mg PO Q4HR PRN tab 10/28/16 [Rx] Furosemide [Lasix] 40 mg PO DAILY #30 tablet 10/28/16 [Rx] Albuterol Sulfate [Accuneb] 1.25 mg INHALATION RT-Q4H PRN 12/01/16 [History] Albuterol Sulfate [Accuneb] 1.25 mg INHALATION RT-QID@08,12,16,20 12/01/16 [ History] Ferrous Sulfate [Feosol] 325 mg PO DAILY 12/01/16 [History] Insulin Aspart [NovoLOG] 10 unit SQ AC-TID@,,16 12/01/16 [History] Insulin Glargine [Lantus] 48 unit SQ HS@199912/01/16 [History] Multivitamins, Thera [Multivitamin (formulary)] 1 tab PO DAILY 12/01/16 [History ] Omeprazole 20 mg PO BID 12/01/16 [History] Venlafaxine HCl ER [Effexor XR] 37.5 mg PO HS 12/01/16 [History] Venlafaxine HCl ER [Effexor XR] 75 mg PO DAILY 12/01/16 [History] ALPRAZolam [Xanax] 0.25 mg PO QID PRN #20 tab 12/02/16 [Rx] Benzocaine/Menthol Lozeng [Cepacol lozenge] 1 lozenge PO Q2H PRN 01/03/17 [ History] Insulin Aspart [NovoLOG] See Protocol SQ ACHS@07,11,16,21 01/03/17 [History] Loratadine [Claritin] 10 mg PO DAILY PRN 01/03/17 [History] Miconazole 2% Cream [Monistat-Derm] 1 applic TOPICAL DAILY@0900 01/03/17 [ History] Follow up Appointment(s)/Referral(s): Jeffrey Aguilar DO [Primary Care Provider] [facility] [NON-STAFF] - 1 Week Patient Instructions/Handouts: Urinary Tract Infection in Women (DC) Activity/Diet/Wound Care/Special Instructions: Heart failure booklet given. Cardiac, diabetic diet. Discharge Disposition: TRANSFER TO SNF/ECF
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
[2017-01-06 12:42] LABS: Glucose,Whole Blood 166 mg/dL (75-99)
[2017-01-06] MEDS: MULTIVITAMINS, THERA 1 EACH TAB PO SCH (13:04)
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
[2017-01-06] MEDS ORDERED: HALOPERIDOL LACTATE 5 MG/ML 1 ML VIAL IVP STA (14:25)
[2017-01-06] MEDS ORDERED: HALOPERIDOL LACTATE 5 MG/ML 1 ML VIAL IM STA (14:40)
[2017-01-06 17:17] LABS: Glucose,Whole Blood 178 mg/dL (75-99)
[2017-01-06] MEDS: OLANZapine ODT 5 MG TAB PO SCH (19:03)
--- NOTE | 2017-01-06 19:49 | P.PN ---
Subjective Progress note being dictated for Dr. Vance. 01/05/17 Interval history: This a 76-year-old female admitted with sepsis with acute UTI , acute metabolic encephalopathy, acute CHF exacerbation, and multiple other medical issues. Maintained on Rocephin, nebulized bronchodilators and Lasix. Worsening renal function. Chest x-ray reported CHF-fluid volume overload possible left pleural effusion. CT failed to report significant sized pleural effusion. Evaluated by pulmonary, recommendations noted. Currently maintaining O2 sats of 90% on room air. Denies chest pain, palpitations or increasing shortness of breath. Pleasantly confused. Afebrile. 01/06/2017. Breathing continues to improve. Afebrile. Evaluated by pulmonary , chest CT ordered but patient declined. Re-Evaluated by psychiatry with recommendations noted. Denies chest pain, palpitations or increasing shortness of breath. Objective - Vital Signs Vital signs: Vital Signs Temp 98.4 F 01/06/17 15:00 Pulse 73 01/06/17 16:00 Resp 18 01/06/17 15:00 BP 141/74 01/06/17 15:00 Pulse Ox 92 L 01/06/17 15:00 Intake & Output 01/06/17 01/06/17 01/07/17 06:59 18:59 06:59 Intake Total 770 Balance 770 Weight 101.5 kg 101.5 kg Intake: Intake, IV Titration 50 Amount cefTRIAXone 1,000 mg In 50 Sodium Chloride 0.9% 50 ml @ 100 mls/hr IVPB DAILY [facility] Rx#:[id number] Oral 720 Other: Voiding Method Bedside Commode Bedside Commode # Voids 1 6 # Bowel Movements 1 - Exam PHYSICAL EXAM: VITAL SIGNS: As above GENERAL: [Sitting up at side of bed, no acute distress HEENT: [Pupils equal conjunctiva normal, oral mucosa moist] NECK: [Supple, no JVD] RESPIRATORY EFFORT:[ Normal] LUNGS: [Diminished, a few scattered rhonchi, no wheezes, left basilar crackles] CARDIOVASCULAR[ regular S1 and S2, no murmurs rubs or gallops, mild edema] GI: [Abdomen soft, nontender, positive bowel sounds. No organomegaly] PSYCH: [Alert and oriented -2, currently agitated] SKIN: No rash NEURO: No focal deficits, moves all 4 extremities, strength and sensations grossly intact - Labs CBC & Chem 7: 01/06/17 07:18 08/18/17 07:18 Labs: Abnormal Lab Results - Last 24 Hours (Table) 01/06/17 01/06/17 01/06/17 Range/Units 07:18 07:18 07:56 MCH 24.7 L (25.0-35.0) pg MCHC 30.2 L (31.0-37.0) g/dL RDW 19.8 H (11.5-15.5) % BUN 37 H (7-17) mg/dL Creatinine 1.21 H (0.52-1.04) mg/dL Glucose 124 H (74-99) mg/dL POC Glucose (mg/dL) 124 H (75-99) mg/dL 01/06/17 01/06/17 Range/Units 12:35 17:16 MCH (25.0-35.0) pg MCHC (31.0-37.0) g/dL RDW (11.5-15.5) % BUN (7-17) mg/dL Creatinine (0.52-1.04) mg/dL Glucose (74-99) mg/dL POC Glucose (mg/dL) 166 H 178 H (75-99) mg/dL Assessment and Plan Plan: 1. Change in mental status,acute metabolic encephalopathy with acute UTI with sepsis 2. [ Acute on chronic CHF, diastolic dysfunction]. 3. [ Acute hypoxic respiratory failure, pulmonary hypertension 4. [ Dementia]. 5. [ Gastroesophageal reflux disease]. 6. [ Diabetes]. 7. [ Hypertension]. 8. Morbid obesity, BMI 45.2 Plan: Continue on current medication regime ,monitoring and symptomatic treatment. Evaluated by psychiatry with recommendations noted. Discharge planning in progress pending psych clearance for return back to ECF. Further recommendations to follow. The impression and plan of care has been dictated as directed. : I performed a H&P examination of this patient and discussed the same with the dictator. I agree with the dictator's note. Any additional findings/opinions/ etc. will be noted.
[2017-01-06 20:06] LABS: Glucose,Whole Blood 218 mg/dL (75-99)
[2017-01-06] MEDS: ATORVASTATIN 10 MG TAB PO SCH (22:14)
[2017-01-06] MEDS: INSULIN GLARGINE 100 UNIT/ML 10 ML VIAL SQ SCH (22:14)
[2017-01-06] MEDS: ACETAMINOPHEN TAB 325 MG TAB PO PRN (22:50)
[2017-01-07 07:18] LABS: Glucose,Whole Blood 140 mg/dL (75-99)
[2017-01-07] MEDS: amLODIPine 5 MG TAB PO SCH (07:42)
[2017-01-07] MEDS: ISOSORBIDE MONONITRATE ER 30 MG TAB.ER.24H PO SCH (07:42)
[2017-01-07] MEDS: PANTOPRAZOLE 40 MG TABLET PO SCH (07:42)
[2017-01-07] MEDS: OXYBUTYNIN 15 MG TAB.ER.24 PO SCH ×2 (07:42→21:43)
[2017-01-07] MEDS: FENOFIBRATE 160 MG TAB PO SCH (07:42)
[2017-01-07] MEDS: FUROSEMIDE 40 MG TAB PO SCH ×2 (07:42→15:19)
[2017-01-07] MEDS: GABAPENTIN 300 MG CAP PO SCH ×2 (07:43→21:43)
[2017-01-07] MEDS: FERROUS SULFATE 325 MG TAB PO SCH (07:43)
[2017-01-07] MEDS: HEPARIN SODIUM,PORCINE 5,000 UNIT/ML 1 ML VIAL SQ SCH ×2 (07:46→21:44)
[2017-01-07] MEDS: METOPROLOL TARTRATE 25 MG TAB PO SCH (07:46)
[2017-01-07] MEDS: MICONAZOLE NITRATE 2% CREAM 14 GM TUBE TOPICAL SCH (07:50)
[2017-01-07] MEDS: INSULIN LISPRO (humaLOG) 300 UNIT/3 ML VIAL SQ SCH ×7 (07:50→21:44)
[2017-01-07] MEDS: ALBUTEROL NEBULIZED 2.5 MG/3 ML INHALATION SCH ×4 (08:56→19:26)
[2017-01-07 12:15] LABS: Glucose,Whole Blood 155 mg/dL (75-99)
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
[2017-01-07] MEDS: MULTIVITAMINS, THERA 1 EACH TAB PO SCH (13:06)
--- NOTE | 2017-01-07 14:38 | P.PN ---
Subjective Progress note being dictated for Dr. Vance. 01/05/17 Interval history: This a 76-year-old female admitted with sepsis with acute UTI , acute metabolic encephalopathy, acute CHF exacerbation, and multiple other medical issues. Maintained on Rocephin, nebulized bronchodilators and Lasix. Worsening renal function. Chest x-ray reported CHF-fluid volume overload possible left pleural effusion. CT failed to report significant sized pleural effusion. Evaluated by pulmonary, recommendations noted. Currently maintaining O2 sats of 90% on room air. Denies chest pain, palpitations or increasing shortness of breath. Pleasantly confused. Afebrile. 01/06/2017. Breathing continues to improve. Afebrile. Evaluated by pulmonary , chest CT ordered but patient declined. Re-Evaluated by psychiatry with recommendations noted. Denies chest pain, palpitations or increasing shortness of breath. 01/07/2017. Appears more calmer today. Refused lab draw this morning. Afebrile. Objective - Vital Signs Vital signs: Vital Signs Temp 98.0 F 01/07/17 07:00 Pulse 70 01/07/17 07:00 Resp 18 01/07/17 08:00 BP 133/80 01/07/17 07:00 Pulse Ox 90 L 01/07/17 07:00 Intake & Output 01/06/17 01/07/17 01/07/17 18:59 06:59 18:59 Intake Total 100 240 Balance 100 240 Weight 101.5 kg 99 kg Intake: Oral 100 240 Other: Voiding Method Bedside Commode # Voids 6 2 # Bowel Movements 1 1 - Exam PHYSICAL EXAM: VITAL SIGNS: As above GENERAL: [Sitting up at side of bed, no acute distress HEENT: [Pupils equal conjunctiva normal, oral mucosa moist] NECK: [Supple, no JVD] RESPIRATORY EFFORT:[ Normal] LUNGS: [Diminished, a few scattered rhonchi, no wheezes, left basilar crackles] CARDIOVASCULAR[ regular S1 and S2, no murmurs rubs or gallops, mild edema] GI: [Abdomen soft, nontender, positive bowel sounds. No organomegaly] PSYCH: [Alert and oriented -2, currently agitated] SKIN: No rash NEURO: No focal deficits, moves all 4 extremities, strength and sensations grossly intact - Labs CBC & Chem 7: 01/06/17 07:18 01/06/17 07:18 Labs: Abnormal Lab Results - Last 24 Hours (Table) 01/06/17 01/06/17 01/07/17 Range/Units 17:16 19:52 07:16 POC Glucose (mg/dL) 178 H 218 H 140 H (75-99) mg/dL 01/07/17 Range/Units 12:13 POC Glucose (mg/dL) 155 H (75-99) mg/dL Assessment and Plan Plan: 1. Change in mental status,acute metabolic encephalopathy with acute UTI with sepsis 2. [ Acute on chronic CHF, diastolic dysfunction]. 3. [ Acute hypoxic respiratory failure, pulmonary hypertension 4. [ Dementia]. 5. [ Gastroesophageal reflux disease]. 6. [ Diabetes]. 7. [ Hypertension]. 8. Morbid obesity, BMI 45.2 Plan: Continue on current medication regime ,monitoring and symptomatic treatment. Discharge planning in progress pending psych clearance for return back to ECF. Further recommendations to follow. The impression and plan of care has been dictated as directed. : I performed a H&P examination of this patient and discussed the same with the dictator. I agree with the dictator's note. Any additional findings/opinions/ etc. will be noted.
[2017-01-07 17:23] LABS: Glucose,Whole Blood 153 mg/dL (75-99)
[2017-01-07] MEDS: OLANZapine ODT 5 MG TAB PO SCH (18:06)
[2017-01-07 20:28] LABS: Glucose,Whole Blood 97 mg/dL (75-99)
[2017-01-07] MEDS: ATORVASTATIN 10 MG TAB PO SCH (21:43)
[2017-01-07] MEDS: INSULIN GLARGINE 100 UNIT/ML 10 ML VIAL SQ SCH (21:44)
[2017-01-08 02:16] LABS: Glucose,Whole Blood 404 mg/dL (75-99)
[2017-01-08 02:16] LABS: Glucose,Whole Blood 241 mg/dL (75-99)
[2017-01-08 07:38] LABS: Glucose,Whole Blood 217 mg/dL (75-99)
[2017-01-08] MEDS: amLODIPine 5 MG TAB PO SCH (08:02)
[2017-01-08] MEDS: FERROUS SULFATE 325 MG TAB PO SCH (08:03)
[2017-01-08] MEDS: METOPROLOL TARTRATE 25 MG TAB PO SCH (08:03)
[2017-01-08] MEDS: FENOFIBRATE 160 MG TAB PO SCH (08:03)
[2017-01-08] MEDS: GABAPENTIN 300 MG CAP PO SCH ×2 (08:03→23:26)
[2017-01-08] MEDS: ACETAMINOPHEN TAB 325 MG TAB PO PRN (08:03)
[2017-01-08] MEDS: OXYBUTYNIN 15 MG TAB.ER.24 PO SCH ×2 (08:03→23:26)
[2017-01-08] MEDS: PANTOPRAZOLE 40 MG TABLET PO SCH (08:03)
[2017-01-08] MEDS: ISOSORBIDE MONONITRATE ER 30 MG TAB.ER.24H PO SCH (08:03)
[2017-01-08] MEDS: MICONAZOLE NITRATE 2% CREAM 14 GM TUBE TOPICAL SCH (08:04)
[2017-01-08] MEDS: HEPARIN SODIUM,PORCINE 5,000 UNIT/ML 1 ML VIAL SQ SCH ×2 (08:04→23:30)
[2017-01-08] MEDS: INSULIN LISPRO (humaLOG) 300 UNIT/3 ML VIAL SQ SCH ×7 (08:10→23:29)
[2017-01-08] MEDS: FUROSEMIDE 40 MG TAB PO SCH ×2 (08:12→16:06)
[2017-01-08] MEDS: ALBUTEROL NEBULIZED 2.5 MG/3 ML INHALATION SCH ×3 (08:21→19:43)
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
[2017-01-08 12:36] LABS: Glucose,Whole Blood 88 mg/dL (75-99)
[2017-01-08] MEDS: MULTIVITAMINS, THERA 1 EACH TAB PO SCH (13:33)
[2017-01-08 17:12] LABS: Glucose,Whole Blood 263 mg/dL (75-99)
[2017-01-08 21:28] LABS: Glucose,Whole Blood 161 mg/dL (75-99)
[2017-01-08] MEDS: ATORVASTATIN 10 MG TAB PO SCH (23:26)
[2017-01-08] MEDS: OLANZapine ODT 5 MG TAB PO SCH (23:27)
[2017-01-08] MEDS: INSULIN GLARGINE 100 UNIT/ML 10 ML VIAL SQ SCH (23:46)
[2017-01-09] MEDS: LORazepam 2 MG/ML SYRINGE IV PRN (05:16)
[2017-01-09] MEDS: ALBUTEROL NEBULIZED 2.5 MG/3 ML INHALATION SCH ×4 (07:14→19:26)
[2017-01-09 07:38] LABS: Glucose,Whole Blood 107 mg/dL (75-99)
[2017-01-09] MEDS: INSULIN LISPRO (humaLOG) 300 UNIT/3 ML VIAL SQ SCH ×7 (07:38→23:04)
[2017-01-09] MEDS: PANTOPRAZOLE 40 MG TABLET PO SCH (08:20)
[2017-01-09] MEDS: GABAPENTIN 300 MG CAP PO SCH ×2 (08:23→23:01)
[2017-01-09] MEDS: FENOFIBRATE 160 MG TAB PO SCH (08:23)
[2017-01-09] MEDS: ISOSORBIDE MONONITRATE ER 30 MG TAB.ER.24H PO SCH (08:23)
[2017-01-09] MEDS: METOPROLOL TARTRATE 25 MG TAB PO SCH (08:24)
[2017-01-09] MEDS: FUROSEMIDE 40 MG TAB PO SCH ×2 (08:24→16:37)
[2017-01-09] MEDS: FERROUS SULFATE 325 MG TAB PO SCH (08:24)
[2017-01-09] MEDS: HEPARIN SODIUM,PORCINE 5,000 UNIT/ML 1 ML VIAL SQ SCH ×2 (08:24→23:01)
[2017-01-09] MEDS: amLODIPine 5 MG TAB PO SCH (08:24)
[2017-01-09] MEDS: OXYBUTYNIN 15 MG TAB.ER.24 PO SCH ×2 (08:25→23:02)
[2017-01-09] MEDS: MICONAZOLE NITRATE 2% CREAM 14 GM TUBE TOPICAL SCH (08:26)
[2017-01-09] MEDS: MULTIVITAMINS, THERA 1 EACH TAB PO SCH (11:59)
[2017-01-09 12:32] LABS: Glucose,Whole Blood 126 mg/dL (75-99)
--- NOTE | 2017-01-09 12:37 | P.PN ---
Subjective Progress note dated 01/09/2017 This is a 76-year-old female with a history of mental status changes secondary to urinary tract infection pulmonary vascular congestion and diastolic CHF moderate pulmonary hypertension dementia diabetes hyperlipidemia hypertension hypoxemic respiratory failure and severe restrictive lung disease secondary to sleep apnea syndrome and pickwickian syndrome. The patient is doing better. Dr. Cummings mentioned that yesterday she could possibly be discharged in next day or so. She has no major complaints today. Very lethargic and sleepy but does arouse. Denies any respiratory issues or shortness of breath. No cough no wheezing no phlegm production. Not coughing up any blood. No chest pain or chest discomfort. No nausea vomiting or diarrhea. Objective - Vital Signs Vital signs: Vital Signs Temp 97.3 F L 01/09/17 07:00 Pulse 83 01/09/17 07:00 Resp 16 01/09/17 07:00 BP 151/74 01/09/17 07:00 Pulse Ox 92 L 01/09/17 07:00 Intake & Output 01/08/17 01/09/17 01/09/17 18:59 06:59 18:59 Intake Total 600 Balance 600 Weight 107 kg Intake: Oral 600 Other: Voiding Method Bedside Commode # Voids 5 4 # Bowel Movements 0 - Exam No acute distress, oriented 3. H EENT examination is grossly unremarkable. Mucous membranes are moist. No oral lesions. Neck supple. Full range of motion. No adenopathy or thyromegaly Cardiovascular examination reveals regular rhythm rate. S1-S2 normal. No S3- S4 or murmur. Lungs reveal mostly clear breath sounds. A few scattered rhonchi. There is some very mild bibasilar crackles. Breath sounds are equal. Abdomen is obese bowel sounds are heard. Extremities are intact. Mild edema. No cyanosis or clubbing. Skin without rash. Neurologic examination is nonfocal. - Labs CBC & Chem 7: 01/06/17 07:18 01/06/17 07:18 Labs: Abnormal Lab Results - Last 24 Hours (Table) 01/08/17 01/08/17 01/09/17 Range/Units 17:09 20:47 07:30 POC Glucose (mg/dL) 263 H 161 H 107 H (75-99) mg/dL Assessment and Plan (1) Pickwickian syndrome Status: Acute (2) Sleep apnea syndrome Status: Acute (3) Acute kidney injury Status: Acute (4) Delirium due to general medical condition Status: Acute (5) Encephalopathy Status: Acute (6) Urinary tract infection Status: Acute (7) Acute pulmonary edema Status: Acute (8) Diabetes Status: Acute (9) Diastolic CHF, acute on chronic Status: Acute (10) GERD (gastroesophageal reflux disease) Status: Acute (11) HTN (hypertension) Status: Acute (12) Hyperlipemia Status: Acute (13) Morbid obesity Status: Acute Plan: Plan dated 01/09/2017 The patient's doing well. He was seen by my partner yesterday. The patient may be discharged home today or tomorrow. Not sure. Weight for the primary service. From the pulmonary standpoint, the patient's respiratory status is stable. No issues with regards to breathing coughing wheezing phlegm production fever chills nausea vomiting chest pain, etc. We'll continue to follow. Time with Patient: Less than 30
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
[2017-01-09 17:10] LABS: Glucose,Whole Blood 186 mg/dL (75-99)
[2017-01-09] MEDS: OLANZapine ODT 5 MG TAB PO SCH (18:09)
[2017-01-09 21:34] LABS: Glucose,Whole Blood 189 mg/dL (75-99)
[2017-01-09] MEDS: ATORVASTATIN 10 MG TAB PO SCH (23:00)
[2017-01-09] MEDS: INSULIN GLARGINE 100 UNIT/ML 10 ML VIAL SQ SCH (23:03)
[2017-01-10 00:19] VITALS: PULSE 93
--- NOTE | 2017-01-10 01:12 | P.PN ---
Subjective Principal diagnosis: Acute urinary tract infection Interval history: This a 76-year-old female admitted with sepsis with acute UTI , acute metabolic encephalopathy, acute CHF exacerbation, and multiple other medical issues. Maintained on Rocephin, nebulized bronchodilators and Lasix. Worsening renal function. Chest x-ray reported CHF-fluid volume overload possible left pleural effusion. CT failed to report significant sized pleural effusion. Evaluated by pulmonary, recommendations noted. Currently maintaining O2 sats of 90% on room air. Denies chest pain, palpitations or increasing shortness of breath. Pleasantly confused. Afebrile. 01/06/2017. Breathing continues to improve. Afebrile. Evaluated by pulmonary , chest CT ordered but patient declined. Re-Evaluated by psychiatry with recommendations noted. Denies chest pain, palpitations or increasing shortness of breath. 01/07/2017. Appears more calmer today. Refused lab draw this morning. Afebrile.\ 01/08/2017 Patient denies any complaints of chest pain or short of breath today patient has been afebrile. No nausea vomiting abdominal pain. No acute overnight issues. Mentation improving. Objective - Vital Signs Vital signs: Vital Signs Temp 97.2 F L 01/08/17 14:50 Pulse 69 01/08/17 14:50 Resp 20 01/08/17 15:49 BP 126/55 01/08/17 14:50 Pulse Ox 90 L 01/08/17 14:50 Intake & Output 01/08/17 01/08/17 01/09/17 06:59 18:59 06:59 Weight 97.5 kg Other: # Voids 1 5 # Bowel Movements 2 - Exam GENERAL: [Sitting up at side of bed, no acute distress HEENT: [Pupils equal conjunctiva normal, oral mucosa moist] NECK: [Supple, no JVD] RESPIRATORY EFFORT:[ Normal] LUNGS: [Diminished, a few scattered rhonchi, no wheezes, left basilar crackles] CARDIOVASCULAR[ regular S1 and S2, no murmurs rubs or gallops, mild edema] GI: [Abdomen soft, nontender, positive bowel sounds. No organomegaly] PSYCH: [Alert and oriented -2, currently agitated] SKIN: No rash NEURO: No focal deficits, moves all 4 extremities, strength and s - Labs CBC & Chem 7: 01/06/17 07:18 01/06/17 07:18 Labs: Abnormal Lab Results - Last 24 Hours (Table) 01/08/17 01/08/17 01/08/17 Range/Units 02:10 02:11 07:36 POC Glucose (mg/dL) 404 H 241 H 217 H (75-99) mg/dL 01/08/17 Range/Units 17:09 POC Glucose (mg/dL) 263 H (75-99) mg/dL Assessment and Plan Plan: 1. Change in mental status,acute metabolic encephalopathy with acute UTI with sepsis 2. [ Acute on chronic CHF, diastolic dysfunction]. 3. [ Acute hypoxic respiratory failure, pulmonary hypertension 4. [ Dementia]. 5. [ Gastroesophageal reflux disease]. 6. [ Diabetes]. 7. [ Hypertension]. 8. Morbid obesity, BMI 45.2 Plan: Continue on current medication regime ,monitoring and symptomatic treatment. Discharge planning in progress pending psych clearance for return back to ECF. Further recommendations to follow.
[2017-01-10] MEDS: AMOXICILLIN 500 MG CAP PO SCH ×2 (06:41→10:42)
[2017-01-10] MEDS: ALBUTEROL NEBULIZED 2.5 MG/3 ML INHALATION SCH ×2 (07:35→11:25)
[2017-01-10 07:39] LABS: Glucose,Whole Blood 107 mg/dL (75-99)
[2017-01-10] MEDS: INSULIN LISPRO (humaLOG) 300 UNIT/3 ML VIAL SQ SCH ×4 (07:41→12:56)
[2017-01-10 07:47] VITALS: BP 146/86; RESP 18; TEMP 97.1
[2017-01-10] MEDS ORDERED: FUROSEMIDE 40 MG TAB PO SCH (09:00)
[2017-01-10] MEDS ORDERED: CITALOPRAM HYDROBROMIDE 10 MG TAB PO SCH (09:00)
--- NOTE | 2017-01-10 09:40 | PN ---
DATE OF SERVICE: 01/09/2017 PRESENTING COMPLAINT: Acute UTI. INTERVAL HISTORY: This patient presented with acute UTI with delirium, which is getting better. Medications were adjusted by Psychiatry earlier today. Tolerating some diet. Patient is somewhat anxious, sitting up in a chair. Review of systems done for constitutional, cardiovascular, GI, pulmonary; relevant findings as above. The current medications include IV ceftriaxone. Psychiatry medications have been adjusted. Also, on p.o. Lasix 40 mg twice a day. On examination, temperature is 98.1, pulse 74, respirations 20, blood pressure 108/60, pulse ox 98% on 2 L. GENERAL APPEARANCE: Sitting up in a chair, comfortable. EYES: Pupils equal. Conjunctivae normal. NECK: Short thick. JVD unable to assess. RESPIRATORY: Effort normal. LUNGS: Diminished breath sounds. CARDIOVASCULAR: First and second sounds normal. No edema. ABDOMEN: Distended, soft. Liver and spleen not palpable. PSYCHIATRY: Awake, answering questions, anxious appearing. INVESTIGATIONS: Accu-Cheks are noted. ASSESSMENT: 1. Acute urinary tract infection causing delirium, present on admission. 2. Chronic obstructive pulmonary disease. 3. Morbid obesity, body mass index of 47.6. 4. Chronic congestive heart failure, ejection fraction not known. 5. Restrictive lung disease. 6. Diabetes mellitus type 2 with peripheral neuropathy. 7. Essential hypertension. 8. Hyperlipidemia. 9. Depression, not otherwise specified. 10. Chronic kidney disease, stage III. 11. Medical debility. Patient is wheelchair bound. 12. Legal guardian. PLAN: Antibiotics will be switched to p.o. Psychiatry medications are being adjusted by Dr. Carrero. If patient remains good, hopefully can be discharged back to the [facility] tomorrow. CANDICE
[2017-01-10] MEDS: PANTOPRAZOLE 40 MG TABLET PO SCH (10:41)
[2017-01-10] MEDS: FERROUS SULFATE 325 MG TAB PO SCH (10:43)
[2017-01-10] MEDS: amLODIPine 5 MG TAB PO SCH (10:43)
[2017-01-10] MEDS: FENOFIBRATE 160 MG TAB PO SCH (10:43)
[2017-01-10] MEDS: ISOSORBIDE MONONITRATE ER 30 MG TAB.ER.24H PO SCH (10:44)
[2017-01-10] MEDS: OXYBUTYNIN 15 MG TAB.ER.24 PO SCH (10:44)
[2017-01-10] MEDS: HEPARIN SODIUM,PORCINE 5,000 UNIT/ML 1 ML VIAL SQ SCH (10:44)
[2017-01-10] MEDS: GABAPENTIN 300 MG CAP PO SCH (10:44)
[2017-01-10] MEDS: MICONAZOLE NITRATE 2% CREAM 14 GM TUBE TOPICAL SCH (10:44)
[2017-01-10] MEDS: METOPROLOL TARTRATE 25 MG TAB PO SCH (10:44)
--- NOTE | 2017-01-10 11:48 | DS ---
FINAL DIAGNOSES: 1. Acute urinary tract infection causing delirium, present on admission. 2. Chronic obstructive pulmonary disease. 3. Morbid obesity. BMI 47.6. 4. Chronic congestive heart failure, ejection fraction not known. 5. Restrictive lung disease. 6. Diabetes mellitus Type 2 with peripheral neuropathy. 7. Essential hypertension. 8. Hyperlipidemia. 9. Depression, not otherwise specified. 10. Chronic kidney disease Stage III from hypertensive nephrosclerosis. 11. Medical debility, the patient is wheelchair bound. 12. The patient had a legal guardian. 13. 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 HOSPITAL COURSE: This patient is pretty much wheelchair bound, has got severe restrictive lung disease. Presented with acute UTI and delirium thereof. Responded well to antibiotics which have now been completed and discontinued. The patient seen by Dr. Gan from psychiatry who adjusted the patients medications. She discontinued her Effexor, Wellbutrin, Xanax, and put on Zyprexa 5 mg at night and Celexa 10 mg in the morning. This needs to be further monitored. Depending on how she does, she can be arranged to follow-up with psychiatry from the care home. Today, the patient is eating better. Psychiatry geller, she is stabilized. On examination, lungs decreased breath sounds. CARDIOVASCULAR: First and second sounds normal. The patient is able to answer simple questions. The patients cultures were negative. DISCHARGE MEDICATIONS: 1. Fenofibrate 145 mg po daily. 2. Neurontin 300 mg po b.i.d. 3. Oxybutynin ER 50 mg po b.i.d. 4. Zocor 10 mg po q.h.s. 5. Norvasc 5 mg po daily. 6. Imdur ER 30 mg po daily. 7. Tylenol 650 mg po q4h prn. 8. Albuterol q4 prn. 9. Albuterol 1.25 nebulizer q.i.d. 10. Iron 325 po daily. 11. NovoLog 10 units subcu a.c. t.i.d. 12. Lantus ( ) units subcu q.h.s. 13. Multivitamin one tablet po daily. 14. Omeprazole 20 mg po b.i.d. 15. Cepacol one lozenges po q2h prn. 16. Humalog per scale. 17. Claritin 10 mg po daily. 18. ( ) one application topical daily. 19. Celexa 10 mg po daily. 20. Lasix 40 mg po Monday, Monday and Monday, new dose. 21. Lopressor 12.5 po b.i.d. 22. Zyprexa 5 mg po at 7 p.m. DISPOSITION: [facility]. Follow-up with Dr. Aguilar at [facility]. Follow-up with Dr. Cummings in two weeks. Labs, CBC, BMP in three to five days. MTDD
[2017-01-10 12:16] LABS: Glucose,Whole Blood 188 mg/dL (75-99)
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
[2017-01-10] MEDS: MULTIVITAMINS, THERA 1 EACH TAB PO SCH (12:56)
== END 2017-01-10 14:18 | DRG 871 ==
LOC: EC 15:21 → 4MS4W 18:07
PROVIDERS: ADMIT Hospitalist; ATTEND Hospitalist
DX: A41.9 Sepsis, unspecified organism (principal); I50.33 Acute on chronic diastolic (congestive) heart failure; G93.41 Metabolic encephalopathy; I27.2 Other secondary pulmonary hypertension; N17.9 Acute kidney failure, unspecified; E66.2 Morbid (severe) obesity with alveolar hypoventilation; Z68.42 Body mass index [BMI] 45.0-49.9, adult; F05 Delirium due to known physiological condition; F03.90 Unspecified dementia, unspecified severity, without behavioral disturbance, psychotic disturbance, mood disturbance, and anxiety; N39.0 Urinary tract infection, site not specified; I13.0 Hypertensive heart and chronic kidney disease with heart failure and stage 1 through stage 4 chronic kidney disease, or unspecified chronic kidney disease; N18.3 Chronic kidney disease, stage 3 (moderate); E11.22 Type 2 diabetes mellitus with diabetic chronic kidney disease; E11.42 Type 2 diabetes mellitus with diabetic polyneuropathy; J44.9 Chronic obstructive pulmonary disease, unspecified; E78.5 Hyperlipidemia, unspecified; J98.4 Other disorders of lung; I08.1 Rheumatic disorders of both mitral and tricuspid valves; F32.9 Major depressive disorder, single episode, unspecified; F41.9 Anxiety disorder, unspecified; G47.33 Obstructive sleep apnea (adult) (pediatric); K21.9 Gastro-esophageal reflux disease without esophagitis; I25.10 Atherosclerotic heart disease of native coronary artery without angina pectoris; Z79.4 Long term (current) use of insulin; Z79.899 Other long term (current) drug therapy; Z88.6 Allergy status to analgesic agent; Z99.3 Dependence on wheelchair; Z88.5 Allergy status to narcotic agent; Z88.0 Allergy status to penicillin; Z88.8 Allergy status to other drugs, medicaments and biological substances
CPT/HCPCS: 36415; 71020; 76604; 80048; 80053; 80306; 80320; 81001; 82550; 82553; 83036; 83520; 83880; 84484; 85025; 93005; 94760; 96365; 96375; 99285